=== PATIENT | male | born 1945 | race Caucasian/White ===

== ENCOUNTER 2017-03-09 06:07 | Inpatient (IN) ==
[2017-03-09] MEDS ORDERED: *HR* Propofol 200 MG/20 ML VIAL IVP ONE (06:30)
[2017-03-09] MEDS ORDERED: Ondansetron 4 MG/2 ML VIAL ONE (06:30)
[2017-03-09] MEDS ORDERED: Albuterol 2.5 MG/3 ML NEBULIZER IH ONE ×2 (06:30→11:06)
[2017-03-09] MEDS ORDERED: *HR* Midazolam HCl 2 MG/2 ML VIAL ONE ×2 (06:30→11:11)
[2017-03-09] MEDS ORDERED: *HR* FentaNYL (PF) 100 MCG/2 ML VIAL ONE (06:30)
[2017-03-09] MEDS ORDERED: *HR* Succinylcholine 200 MG/10 ML VIAL IVP ONE (06:30)
[2017-03-09] MEDS ORDERED: Lidocaine -MPF 2% 2 ML VIAL ONE (06:30)
[2017-03-09] MEDS ORDERED: Vancomycin 1,500 MG in D5% in Water 250 ML IVPB ONE ×2 (06:30→06:49)
[2017-03-09] MEDS ORDERED: Ringers Solution, Lactated 1,000 ML IVC SCH (06:30)
[2017-03-09] MEDS ORDERED: Dexamethasone 4 MG/ML VIAL ONE (06:30)
[2017-03-09] MEDS ORDERED: *HR* Remifentanil 1 MG VIAL IVP ONE (06:30)
[2017-03-09] MEDS ORDERED: CeFAZolin Pre 2,000 MG/100 ML 2,000 MG/100 ML BAG IVPB ONE (06:30)
[2017-03-09] MEDS ORDERED: Albuterol 2.5 MG/3 ML NEBULIZER ONE (06:42)
[2017-03-09] MEDS ORDERED: EPHEDrine 50 MG/ML VIAL ONE ×4 (06:43→14:18)
--- NOTE | 2017-03-09 07:10 | Anesthesia Evaluation PreOp ---
Date of Encounter: 03/09/17 Time of Encounter: 07:40 - Past History Planned Operation: right carotid endarterectomy Cardiac History: WI, HTN, Hyperlipidemia, Cardiac Stent (History of WI over 10 years ago. No history of CHF, angina or cardiac surgery. Had coronary stent placed last week after preop cardiac evaluation. Nuclear stress test revealed EF 68%, no ischemia at targeted heart rate, and a medium fixed defect of mid inferior segments noted with normal wall motion.) Pulmonary History: Former smoker (Over 70 pack year smoking history. Has severe emphysema/COPD. On home O2 at 2-3L 24 hours a day. 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 Currently having multiple TIA episodes with visual disturbances.) Other Medical History: Diabetes Type II, GERD (occasional) Anesthesia History: No Prior Anesthetic Complications, Past Anesthesia Alcohol Use: none Drug use: none Medications and Allergies Albuterol Neb [Proventil Neb] 2.5 mg IH Q4HR PRN 02/16/17 [History] Albuterol Sulfate [Albuterol Inhaler] 2 puff IH Q4HR PRN 02/16/17 [History] Aspirin [Lo-Dose Aspirin EC] 81 mg PO DAILY PRN 02/16/17 [History] Budesonide/Formoterol 160/4.5 [Symbicort 160/4.5] 2 puff IH BIDR 02/16/17 [ History] Furosemide [Lasix] 80 mg PO HS 02/16/17 [History] Furosemide [Lasix] 120 mg PO QAM 02/16/17 [History] HYDROcodone/Acet 5/325 mg [[place] 5-325 mg] 1 tab PO Q6H PRN 02/16/17 [History] Isosorbide MONOnitrate (24 HR) [Imdur] 15 mg PO DAILY 02/16/17 [History] Lidocaine 4% CRM (LMX) [Lmx 4] 1 appl TP TID PRN 02/16/17 [History] Lisinopril 2.5 mg PO DAILY 02/16/17 [History] Methocarbamol [Robaxin-750] 750 mg PO TID PRN 02/16/17 [History] Omeprazole [PriLOSEC] 20 mg PO DAILY 02/16/17 [History] Polyethylene Glycol 3350 [MiraLAX Powder Bulk 17.9 Oz] 1 scoop PO DAILY PRN 01/30 [History] Roflumilast [Daliresp] 500 mcg PO DAILY 02/16/17 [History] Tiotropium [Spiriva] 18 mcg IH 0700 02/16/17 [History] glipiZIDE [Glucotrol] 5 mg PO BIDWM 02/16/17 [History] hydrOXYzine pamoate [HydrOXYzine Pamoate] 25 mg PO TID 02/16/17 [History] Potassium Chloride [K-Tab ER] 20 meq PO DAILY #30 tablet.er 02/17/17 [Rx] Ticagrelor [Brilinta] 90 mg PO BID #60 tablet 02/17/17 [Rx] metFORMIN [Glucophage] 500 mg PO 0800 #0 02/17/17 [Rx] Allergies gabapentin [From Neurontin] Allergy (Verified 02/16/17 08:56) Hypotension Cyclobenzaprine [From Flexeril] Adverse Reaction (Verified 02/16/17 14:57) Hypotension - Meds/Allergy Pre-op Review Medications Reviewed: Yes Allergies Reviewed: Yes Beta Blockers on Current Med List: No Anesthesia Results - Labs Laboratory Tests 02/15/17 03/07/17 03/07/17 14:33 16:05 16:05 WBC 10.6 Hgb 12.2 L Hct 35.9 L Plt Count 282 PT 12.6 H INR 1.2 APTT 34.9 Sodium 141 Potassium 4.0 Chloride 100 Carbon Dioxide 31 H BUN 19 Creatinine 1.56 H - Imaging EKG: report reviewed (sinus bridget with RBBB), image reviewed Anesthesia Exam Selected Entries 03/09/17 06:31 Temperature 98.0 F Pulse Rate 68 Respiratory Rate 18 Blood Pressure 114/57 O2 Sat by Pulse Oximetry 98 Weight: 98 kg NPO (# of Hours): over 8 hours - HEENT Pupil (Motor): Pupils equal Mallampati: II Teeth: Missing, Poor dentition (No upper teeth. Lower teeth in poor generalized condition) - MOTOR RUNNER LOC: Oriented - Cardiac Rhythm: Regular Murmur: None - Pulmonary Breath Sounds: bilateral Rales, bilateral Rhonchi (Audible wheezing at rest.) Anesthesia Assess/Plan ASA Score: 4 Modified Omayra Scale for Level of Consciousness: Cooperative, oriented, and tranquil Anesthetic Plan: General Monitoring Plan: Standard Monitors, A-Line Recovery Plan: PACU
[2017-03-09] MEDS ORDERED: Protamine Sulfate 50 MG/5 ML VIAL IVP ONE (07:34)
[2017-03-09] MEDS ORDERED: Lidocaine 1% 20 ML MDV ONE (07:34)
[2017-03-09] MEDS ORDERED: Bupivacaine-MPF 0.25% 10 ML VIAL ONE (07:34)
[2017-03-09] MEDS ORDERED: Heparin 1,000 UNITS/500 mL NS 1,500 ML ONE (07:35)
[2017-03-09] MEDS ORDERED: Vancomycin 1,000 MG VIAL ONE (07:35)
[2017-03-09] MEDS ORDERED: Heparin 1,000 UNITS/500 mL NS 500 ML ONE (07:36)
[2017-03-09] MEDS ORDERED: MethylPREDNISolone Acet(DEPOT) 40 MG/ML VIAL ONE (07:36)
--- NOTE | 2017-03-09 07:49 | History & Physical Report ---
Date of Encounter: 03/09/17 Time of Encounter: 07:25 24 Hour HP Update - Instructions Instructions: If the History and Physical is less than 30 days old and was completed prior to A.M. admission and or procedure and has NOT been updated on calendar day of procedure please complete this update prior to performing procedure. - Update Patient reports changes in Medical Condition: Yes Changes in examination, assessment, or condition: No Changes in Medication: Yes Preop tests/diagnostics Reviewed: Yes Surgery Remains Indicated: Yes Review of Patient reveals the following changes:: Patient had [facility] with coronary stent on 02/16/17. Patient now taking Plavix 75mg daily. I spoke with Dr. Corbett this morning regarding his stent placement. He stated it was okay to proceed with surgery today. Patient has received Plavix this morning. - Pre-Operative Checklist Preoperative Checklist Indicated: Yes Prophylactic Antibiotic Ordered: Yes (vancomycin due to MRSA risk.) Home Medications Include Beta Padma: No Beta Padma Taken Today (Day of Surgery): No Beta Padma Taken Yesterday (Day Prior to Surgery): No Is VTE Prophylaxis Indicated?: Yes
[2017-03-09] MEDS ORDERED: *HR* Morphine 10 MG/ML VIAL ONE ×2 (10:37→14:46)
[2017-03-09] MEDS: *HR* Midazolam HCl 2 MG/2 ML VIAL IVP PRN ×2 (11:05→11:15)
[2017-03-09] MEDS ORDERED: Ondansetron 4 MG/2 ML VIAL IVP ONE (11:06)
[2017-03-09] MEDS: *HR* Morphine 2 MG/ML SYRINGE IVP PRN ×3 (11:10→11:40)
--- NOTE | 2017-03-09 11:11 | Operative Note ---
Date of procedure: 03/09/17 Pre-op diagnosis: 80-99% Right internal carotid artery stenosis Post-op diagnosis: same Procedure: Right carotid endarterectomy with hemashield patch angioplasty. Complications: None Anesthesia: KATHRINA Surgeon: Roe Humphries Estimated blood loss (cc): 100 Specimen: Right neck lymph nodes, right carotid plaque Condition: stable Disposition: PACU Procedure in Detail: Indications: The patient is a 71 year old male with coronary artery disease, chronic kidney disease stage 3, COPD and hypertension who was found to have an 80-99% right internal carotid artery stenosis. A left carotid endarterectomy was recommended to reduce his risk of cerebrovascular accident. Procedure: The patient was identified in the preoperative area. The risks, benefits, and alternatives of the procedure were discussed and all questions were answered. The patient was then taken to the operating room and placed in supine position on the operating table. After induction of general endotracheal anesthesia, the patient was cleaned and draped in normal sterile fashion. A longitudinal incision was made anterior to his right sternocleidomastoid muscle. Hemostasis was obtained via electrocautery. Through a process of blunt , sharp, and electrocautery dissection, the platysma was traversed. [place] large lymph nodes were noted to be present deep to the sternocleidomastoid. The nodes were resected and sent to pathology. The jugular vein was then identified. The facial vein was identified, dissected, clamped, divided, tied off with a 2-0 silk suture ligature. The jugular vein was retracted, exposing the carotid bifurcation. Patient received 3000 units of heparin intravenously at this time. Proximal dissection of the common and external carotid arteries were performed circumferentially. Dissection of the internal carotid was performed circumferentially. Vessels loops were passed around the internal and external carotid and an umbilical tape was passed from the common carotid artery. The patient received additional 2000 units of heparin intravenously. Additional heparin was given throughout the case to maintain adequate anticoagulation. After waiting adequate time for the heparin to circulate, the vessels were occluded and a longitudinal arteriotomy was made into the common carotid artery and extending into the internal carotid beyond the plaque. Vigorous pulsatile retrograde flow was noted from the internal carotid artery upon release of the distal vessel loop. Due to the flow, adequate contralateral circulation was determined and a shunt was not placed. A dental [place] was then used to perform a standard endarterectomy. Proximal and distal endpoints were inspected. No elevated flaps were noted. A Hemashield patch was cut to fit the defect and sutured in place with running 6 -0 Prolene. Prior to completing the closure, each vessel was flushed and then reoccluded. Heparinized saline was infused into the lumen. The patch was completed. Flow was restored in the external carotid artery, followed the common carotid artery, lastly the internal carotid artery was opened. A low resistance arterialized signal was present within the internal carotid artery beyond the patch. Thrombin and Gelfoam were used to aid in hemostasis. Meticulous hemostasis was obtained throughout the wound with electrocautery. Platelet rich and platelet poor plasma were infused into the wounds. The sternocleidomastoid was reapproximated with interrupted 3-0 Vicryl. Platelet rich and platelet poor plasma were infused into the wound. A TLS drain was brought through a separate stab incision and sutured in place with 0 silk suture. The platysma was reapproximated with running 3-0 Vicryl. Local anesthetic was infused in the skin. A 3-0 Monocryl was used to reapproximate the skin. Sterile dressing was applied. The patient was extubated, taken to the recovery room in stable condition.
--- NOTE | 2017-03-09 11:52 | Anesthesia Procedures ---
Date of Encounter: 03/09/17 Time of Encounter: 08:00 Procedures: Anesthesia - Arterial Line Consent obtained: verbal consent Time out performed: Yes Local Anesthetic: Lidocaine 1% Amount of Anesthetic used (mls): 1 Size (Gauge): 22 Technique Used: sterile prep, guide wire technique Post-Procedure: line taped into place Patient tolerated procedure: well Complications: none Site: Radial R Comments: Patient tolerated procedure well. Excellent wave form, pulsatile blood flow.
--- NOTE | 2017-03-09 12:28 | Discharge Summary ---
Date of Encounter: 03/10/17 Time of Encounter: 17:15 - Discharge Diagnosis (1) Carotid stenosis, bilateral Priority: Primary Status: Chronic Comments: The patient is postoperative day #1 after a right carotid endarterectomy. He is alert and oriented. He has ambulated in the hallway and his states that he is at his baseline. He had blurred vision bilaterally this morning. His right was affected greater than his left. Eye exam at this time reveals intact vision, pupillary response and extraoccular movement. He is alert without neurologic deficits. He denies symptoms of CVA, TIA or amaurosis fugax. He will be discharged today. He tammy take percocet for postoperative pain. He will follow-up in clinic in a two weeks for further evaluation. He will continue with daily Aspirin and Plavix. (2) COPD (chronic obstructive pulmonary disease) Priority: Secondary Status: Chronic Qualifiers: COPD type: emphysema Emphysema type: panlobular Qualified Code(s): J43.1 - Panlobular emphysema (3) CKD (chronic kidney disease) stage 3, GFR 30-59 ml/min Priority: Secondary Status: Chronic Comments: The patient received intravenous fluid boluses. He is making good urine. He was encouraged to continue with oral hydration. (4) Essential hypertension Priority: Secondary Status: Chronic (5) Mixed hyperlipidemia Priority: Secondary Status: Chronic (6) CAD (coronary artery disease) Priority: Secondary Status: Chronic Qualifiers: Coronary Disease-Associated Artery/Lesion type: [place] artery [place] vs. transplanted heart: [place] heart Associated angina: without angina Qualified Code(s): I25.10 - Atherosclerotic heart disease of [place] coronary artery without angina pectoris (7) Type 2 diabetes mellitus Priority: Secondary Status: Acute Qualifiers: Diabetes mellitus complication status: with circulatory complication Diabetes mellitus complication detail: with other circulatory complications Diabetes mellitus skilled nursing insulin use: with skilled nursing use Qualified Code(s) : E11.59 - Type 2 diabetes mellitus with other circulatory complications; Z79.4 - senior living (current) use of insulin - Discharge Medications Prescriptions: OxyCODONE/APAP 5/325 [Percocet 5/325 MG] 1 each PO Q4HR PRN #30 tablet PRN Reason: postoperative pain Home Medications: Albuterol Neb [Proventil Neb] 2.5 mg IH Q4HR PRN 02/16/17 [History] Albuterol Sulfate [Albuterol Inhaler] 2 puff IH Q4HR PRN 02/16/17 [History] Aspirin [Lo-Dose Aspirin EC] 81 mg PO DAILY PRN 02/16/17 [History] Budesonide/Formoterol 160/4.5 [Symbicort 160/4.5] 2 puff IH BIDR 02/16/17 [ History] Furosemide [Lasix] 80 mg PO HS 02/16/17 [History] Furosemide [Lasix] 120 mg PO QAM 02/16/17 [History] HYDROcodone/Acet 5/325 mg [[place] 5-325 mg] 1 tab PO Q6H PRN 02/16/17 [History] Isosorbide MONOnitrate (24 HR) [Imdur] 15 mg PO DAILY 02/16/17 [History] Lidocaine 4% CRM (LMX) [Lmx 4] 1 appl TP TID PRN 02/16/17 [History] Lisinopril 2.5 mg PO DAILY 02/16/17 [History] Methocarbamol [Robaxin-750] 750 mg PO TID PRN 02/16/17 [History] Omeprazole [PriLOSEC] 20 mg PO DAILY 02/16/17 [History] Polyethylene Glycol 3350 [MiraLAX Powder Bulk 17.9 Oz] 1 scoop PO DAILY PRN 01/30 [History] Roflumilast [Daliresp] 500 mcg PO DAILY 02/16/17 [History] Tiotropium [Spiriva] 18 mcg IH 0700 02/16/17 [History] glipiZIDE [Glucotrol] 5 mg PO BIDWM 02/16/17 [History] hydrOXYzine pamoate [HydrOXYzine Pamoate] 25 mg PO TID 02/16/17 [History] Potassium Chloride [K-Tab ER] 20 meq PO DAILY #30 tablet.er 02/17/17 [Rx] Ticagrelor [Brilinta] 90 mg PO BID #60 tablet 02/17/17 [Rx] metFORMIN [Glucophage] 500 mg PO 0800 #0 02/17/17 [Rx] OxyCODONE/APAP 5/325 [Percocet 5/325 MG] 1 each PO Q4HR PRN #30 tablet 03/10/17 [Rx] Allergies/Adverse Reactions: Allergies gabapentin [From Neurontin] Allergy (Verified 02/16/17 08:56) Hypotension Cyclobenzaprine [From Flexeril] Adverse Reaction (Verified 02/16/17 14:57) Hypotension Date of admission: 03/09/17 11:49 Primary care physician: TITUS WATKINS Procedure(s) Performed: Right carotid endarterectomy Discharging clinician: Roe Humphries Anticipated date of discharge: 03/10/17 - Patient Status Disposition: Home, Self-Care Condition: Good Functional capacity at discharge: independent ambulation Overall status at discharge: patient is back to baseline - Discharge Instructions Follow Up With: Roe Humphries MD [Partnered Physician] - 04/17/17 3:45 pm () JUNE,PCP [Primary Care Provider] - 03/20/17 10:30 am Additional Instructions: May remove bandage and shower on 03/11/17. Wash wound gently and pat to dry. No driving for [address] Humphries at [phone] with questions or concerns. - Diet and Activity Activity: ambulate only with your walker, increase activity as tolerated Diet: advance to your usual diet - Hospital Course Hospital course: Mr. Boyle is a 71 year old male with a history of CAD, hypertension, chronic kidney disease and COPD. He was admitted on 03/09/17. He underwent a right carotid endarterectomy and tolerated the procedure well. The patient had an episode of blurred vision after a coughing fit. He reported that this had occurred in the past as well. His vision improved. He received intravenous fluid boluses and was able to ambulate in the chen with his walker. He was noted to be at baseline by his . He was discharged in stable condition on postoperative day #1 without complication. - Time Spent with Patient Total time spent providing and/or coordinating discharge services: Exam Vital Signs, Last 4 Hours Temp Pulse Resp BP Pulse Ox 03/09/17 12:00 97.5 F L 67 16 93/50 93 03/09/17 11:50 72 16 110/57 94 03/09/17 11:40 79 16 87/49 92 03/09/17 11:30 97.6 F 86 16 95/48 92 03/09/17 11:20 93 16 91/56 93 05/25/17 11:10 92 16 109/52 97 03/09/17 11:00 97.7 F 97 16 113/70 97 General: Present: Conversant HEENT: Present: Atraumatic, Trachea midline, Pupils equal (round, reactive, extraoccular movements are intact), Other (symmetric face, no tongue deviation) Neck: Present: Other (incision clean, dry and intact without erythema or drainage, no hematoma). Absent: JVD, Tracheal deviation Cardiac: Present: Reg Rate and Rhythm Lungs: Present: Normal Breath Sounds Neuro: Present: Alert and responsive, No focal deficits noted, Motor nerves grossly intact, Sensory nerves grossly intact Abdomen: Present: Soft Vascular: Present: Normal capillary refill. Absent: Cyanosis, Edema Skin: Present: No rashes noted on visualized skin
[2017-03-09] MEDS ORDERED: Albuterol 2.5 MG/3 ML NEBULIZER IH PRN (12:35)
[2017-03-09] MEDS ORDERED: NON-FORMULARY MEDICATION 1 EACH EACH (Roflumilast [Daliresp] 500 MCG) PO SCH (12:35)
[2017-03-09] MEDS ORDERED: 0.9 % Sodium Chloride 1,000 ML IVC SCH (12:35)
[2017-03-09] MEDS ORDERED: Naloxone 0.4 MG/ML INJ IVP PRN (12:35)
[2017-03-09] MEDS ORDERED: Dextrose Gel 15 GM PO PRN ×2 (12:35)
[2017-03-09] MEDS ORDERED: Ondansetron 4 MG/2 ML VIAL IVP PRN (12:35)
[2017-03-09] MEDS ORDERED: Polyethylene Glycol 3350 255 GM POWDER PO PRN (12:35)
[2017-03-09] MEDS ORDERED: *HR* Morphine 2 MG/ML SYRINGE IVP PRN (12:35)
[2017-03-09] MEDS ORDERED: Methocarbamol 750 MG TABLET PO PRN (12:35)
[2017-03-09] MEDS ORDERED: D5% in Water 1,000 ML IVC PRN (12:35)
[2017-03-09] MEDS ORDERED: *HR* Dextrose 50 % in Water (Syg) 50 ML SYRINGE IVP PRN (12:35)
[2017-03-09] MEDS ORDERED: Acetaminophen 325 MG TABLET PO PRN (12:35)
[2017-03-09] MEDS ORDERED: Lidocaine 4% CREAM (LMX) 5 GM TP PRN (12:35)
[2017-03-09] MEDS: Budesonide/Formoterol 160/4.5 MDI IH SCH ×2 (15:17→23:05)
[2017-03-09] MEDS ORDERED: Naloxone 0.4 MG/ML INJ ONE (15:24)
[2017-03-09] MEDS ORDERED: *HR* Heparin 5,000 UNIT/ML VIAL SQ SCH (18:00)
[2017-03-09] MEDS: *HR* Ticagrelor 90 MG TABLET PO SCH ×2 (18:28→20:29)
[2017-03-09] MEDS: Isosorbide MONOnitrate (24 HR) 30 MG TAB.ER.24H PO SCH (18:29)
[2017-03-09] MEDS: hydrOXYzine pamoate 25 MG CAPSULE PO SCH ×3 (18:29→20:30)
[2017-03-09] MEDS: Insulin LISPRO 300 UNITS/3 ML VIAL SQ SCH ×2 (18:29→19:39)
[2017-03-09] MEDS: Furosemide 40 MG TABLET PO SCH (18:29)
[2017-03-09] MEDS: ceFAZolin 2,000 MG in D5% in Water 100 ML IVPB SCH ×2 (18:33→23:15)
[2017-03-09] MEDS: *HR* HYDROcodone/Acet 5/325 mg TABLET PO PRN (19:42)
[2017-03-09] MEDS ORDERED: Insulin LISPRO 300 UNITS/3 ML VIAL SQ SCH (21:00)
[2017-03-09] MEDS ORDERED: Furosemide 40 MG TABLET PO SCH (21:00)
[2017-03-09] MEDS: *HR* OxyCODONE Immed Rel 5 MG TABLET PO PRN (23:51)
[2017-03-10 04:55] LABS: Calcium 8.9 mg/dL (8.6-10.8); Potassium 4.5 mEq/L (3.5-4.5)
[2017-03-10] MEDS: *HR* Heparin 5,000 UNIT/ML VIAL SQ SCH ×2 (05:57→17:29)
[2017-03-10] MEDS: *HR* HYDROcodone/Acet 5/325 mg TABLET PO PRN (06:01)
[2017-03-10] MEDS ORDERED: Tiotropium 18 MCG inhalation IH SCH (07:00)
[2017-03-10] MEDS: hydrOXYzine pamoate 25 MG CAPSULE PO SCH ×2 (07:59→15:47)
[2017-03-10] MEDS: Isosorbide MONOnitrate (24 HR) 30 MG TAB.ER.24H PO SCH (07:59)
[2017-03-10] MEDS: Furosemide 40 MG TABLET PO SCH (07:59)
[2017-03-10] MEDS: Insulin LISPRO 300 UNITS/3 ML VIAL SQ SCH ×3 (08:00→17:29)
[2017-03-10] MEDS: *HR* Ticagrelor 90 MG TABLET PO SCH (08:00)
[2017-03-10] MEDS ORDERED: *HR* Metformin 500 MG TABLET PO SCH (08:00)
[2017-03-10] MEDS: *HR* OxyCODONE Immed Rel 5 MG TABLET PO PRN (08:04)
[2017-03-10] MEDS ORDERED: Aspirin Enteric Coated 81 MG Tablet PO SCH (09:00)
--- NOTE | 2017-03-10 10:11 | Event Note ---
Date of Encounter: 03/10/17 Time of Encounter: 09:50 Called to see patient regarding blurred vision. Exam reveals that pupils are equally round and reactive to light and accomodation. Patients states he no longer has blurry vision. Motor and sensory function is grossly intact without focal neurologic deficits. He states that his vision becomes blurred when he coughs too hard. He states that these symptoms have occurred in the past, prior to his admission. Patient discussed with nurse. Will continue to observe patient at this time. Continue with ASA.
[2017-03-10] MEDS: Budesonide/Formoterol 160/4.5 MDI IH SCH (10:18)
[2017-03-10] MEDS ORDERED: 0.9 % Sodium Chloride 500 ML IVC ONE ×2 (12:20→15:42)
[2017-03-10 15:31] VITALS: BP 96/46
[2017-03-10] MEDS ORDERED: *HR* GlipiZIDE 5 MG TABLET PO SCH (17:00)
== END 2017-03-10 18:45 | disposition home or self-care (01) | DRG 39 ==
LOC: SAMDAY 06:07 → 2NNU 11:49
PROVIDERS: ADMIT Surgery; ATTEND Surgery

== ENCOUNTER 2019-04-04 17:29 | Inpatient (IN) ==
--- NOTE | 2019-04-04 17:37 | Emergency Department Note ---
Disposition Clinical Impression: Stroke Qualifiers: CVA mechanism: unspecified Qualified Code(s): I63.9 - Cerebral infarction, unspecified Disposition: Admitted As Inpatient Condition: Undetermined Time of Disposition: 23:51 Neuro HPI - General Stated Complaint: Weakness Time Seen by Provider: 04/04/19 17:34 - History of Present Illness HPI Narrative: 73-year-old male past medical history of carotid artery stenosis, CAD, COPD, diabetes, chronic kidney disease presenting approximately 6-1/2 hours after the onset of neurological symptoms. Patient states that his symptoms first began last evening when he had chest pain and shortness of breath which required nitroglycerin administration which relieved his symptoms. A shunt states since approximately 11 AM he has had lightheadedness dizziness, difficulties with speaking, numbness of his bilateral face, numbness of his left upper extremity and numbness of his left lower extremity. Patient drove himself to the hospital this morning, rapid response was called from the parking lots. Upon presentation the patient is alert and oriented, NIH stroke scale scapular to 5, stroke alert was called. Onset of Symptoms Date: 04/04/19 Onset of Symptoms Time: 11:00 Location: speech, left face, right face, left arm, right leg History of same: Yes Severity: moderate Quality: numbness Context: sudden onset Associated symptoms: Reports: denies other symptoms Treatments Prior to Arrival: none - Related Data Home Medications: Home Medications Medication Instructions Recorded Confirmed Albuterol Sulfate [Albuterol 2 puff IH Q4HR PRN 02/16/17 04/04/19 Inhaler] Budesonide/Formoterol 160/4.5 2 puff IH BIDR 02/16/17 04/04/19 [Symbicort 160/4.5] Furosemide [Lasix] 80 mg PO QPM 02/16/17 04/04/19 Furosemide [Lasix] 120 mg PO QAM 02/16/17 04/04/19 HYDROcodone/Acet 5/325 mg [[place] 1 tab PO Q6H PRN 02/16/17 04/04/19 5-325 mg] Roflumilast [Daliresp] 500 mcg PO DAILY 02/16/17 04/04/19 Tiotropium [Spiriva] 2 puff IH DAILY 02/16/17 04/04/19 glipiZIDE [Glucotrol] 5 mg PO BIDWM 02/16/17 04/04/19 hydrOXYzine pamoate [HydrOXYzine 25 mg PO TID PRN 02/16/17 04/04/19 Pamoate] Acetylcysteine [Nac] 600 mg PO BID 10/25/17 04/04/19 Gabapentin [Neurontin] 300 mg PO TID 12/06/17 04/04/19 Allopurinol [Zyloprim 100 MG] 100 mg PO DAILY 04/04/19 04/04/19 Aspirin Enteric Coated [Aspirin EC] 325 mg PO DAILY 04/04/19 04/04/19 Atorvastatin [Lipitor] 80 mg PO HS 04/04/19 04/04/19 Memantine [Namenda] 10 mg PO BID 04/04/19 04/04/19 Pyridoxine (B-6) [Vitamin B-6] 50 mg PO DAILY 04/04/19 04/04/19 Tamsulosin HCl [Flomax] 0.4 mg PO HS 04/04/19 04/04/19 Allergies/Adverse Reactions: Allergies Allergy/AdvReac Type Severity Reaction Status Date / Time Cyclobenzaprine AdvReac Hypotension Verified 02/16/17 14:57 [From Flexeril] oxycodone AdvReac Hypotension Verified 04/04/19 23:43 Review of Systems: *See History of Present Illness for more detail Constitutional: Denies: fever, chills Cardiovascular: Denies: chest pain Respiratory: Denies: dyspnea, cough, hemoptysis Gastrointestinal: Denies: abdominal pain, nausea, vomiting, diarrhea, constipation, hematemesis, melena, hematochezia Genitourinary: Denies: hematuria Musculoskeletal: Denies: back pain, neck pain Neurological: Admits to numbness and paresthesias of bilateral face, left upper extremities and right lower extremity. Admits to lightheadedness/dizziness and weakness. Denies: headache Endocrine: Denies: fatigue All systems ED: reviewed and negative except as stated. Review of Systems: As Per HPI Past Medical History - Past Medical History Medical history: Reports: COPD, CVA, diabetes, hyperlipidemia, hypertension, myocardial infarction, other Surgical history: Reports: other Psychiatric history: Reports: anxiety, depression - Social History Smoking Status: Former smoker Smokeless Tobacco Status: No Alcohol use: Reports: none Drug use: Reports: none Physical Exam NIH stroke scale is 5 Constitutional: Mild distress due to neurological symptoms, otherwise [id number], engaged to conversation, speech is slurred, answers questions appropriately Neuro: GCS 15, CN II-XII are grossly intact, reflexes 2/4 in bilateral upper and lower extremities, strength 5/5 in bilateral upper and lower extremities Head: Atraumatic, normocephalic Eyes: Pupils equal, round and reactive to light, external ocular muscles intact, no scleral icterus, no conjunctival injection, no nystagmus. Mouth: Mucous membranes are moist, oropharynx is without edema, erythema, or exudate. No tongue swelling, lip swelling, perioral cyanosis, drooling, or sergio mus. Neck: Trachea midline without deviation. Anterior neck is supple without swelling, no lymphadenopathy or thyromegaly noted. Chest: Symmetric chest wall rise Heart: Cardiac rhythm and rate are regular with S1 and S2 , no S3 or S4 appreciated, no murmurs, rubs, or clicks. Lungs: Lungs are clear to auscultation bilaterally, without accessory muscle use or prolonged expiratory phase. No wheezes or stridor appreciated. Abdomen: Abdomen is flat, soft to palpation, normal bowel sounds, no evidence of bruising, surgical incisions, or abnormal mass. No abdominal bruit auscultated. Non-distended, non-rigid, no organomegaly, no ascites appreciated. No pulsatile mass, no tenderness or guarding to palpation, no rebound Extremities: No pedal edema, joint swelling or erythema. Pulses/motor/sensory intact in all 4 extremities. Psychiatric exam: Patient displays a normal affect and mood for the environment. No overt signs of hallucination. Integumentary: warm, dry, intact, normal color. No rash, cyanosis, diaphoresis, erythema, or pallor - General Limitations: no limitations General appearance: alert, in distress Course Course Narrative: Stroke alert called at this time - Reevaluation(s) Reevaluation #1: Spoke with Dr. Khan from [facility] neurology who recommends CTA of the head and neck at this time. Dr. Khan states that any abnormalities in the CTA she would like to be called for. Otherwise patient may be admitted to this facility for further evaluation and management of altered mental status. Vital Signs Temperature 97.6 F 04/04/19 17:33 Pulse Rate 88 04/04/19 17:33 Respiratory Rate 15 04/04/19 17:33 Blood Pressure 177/95 04/04/19 17:33 O2 Sat by Pulse Oximetry 97 04/04/19 17:33 Temperature 97.6 F 04/04/19 17:33 Pulse Rate 75 04/04/19 22:12 Respiratory Rate 18 04/04/19 23:01 Blood Pressure 145/71 04/04/19 23:01 O2 Sat by Pulse Oximetry 95 04/04/19 20:53 Oxygen Delivery Oxygen Delivery Nasal Cannula Neuro Symptoms/Deficit - [facility] Narrative Medical decision making narrative: Patient laboratory results are significant only for a mildly elevated white count, otherwise laboratory, EKG and imaging results are negative for acute pathology. Patient be admitted to hospitalist medicine service for further evaluation and management of altered mental status and neurological deficit, Patient verbalizes understanding and agreement with this plan. Patient is hemodynamic stable time of admission. - Lab Data Lab results reviewed: Yes I reviewed the patient's lab results. Result diagrams: 04/04/19 17:34 04/04/19 17:34 Lab Results 04/04/19 04/04/19 04/04/19 Range/Units 17:34 17:34 17:34 WBC 13.5 H (4.3-11.1) K/mcL RBC 4.30 (4.19-5.50) M/mcL Hgb 13.4 (12.9-16.9) g/dL Hct 41.5 (37.5-50.1) % MCV 96.5 (83.0-100.0) fL MCH 31.2 (28.0-33.3) pg MCHC 32.3 (31.6-35.5) g/dL RDW 13.4 (11.5-14.5) % Plt Count 346 (140-400) K/mcL MPV 11.3 (9.4-12.4) fL PT 11.5 (9.4-12.1) Seconds INR 1.0 APTT 38.3 H (26.0-36.0) Seconds Sodium 141 (136-145) mEq/L Potassium 3.5 (3.5-5.1) mEq/L Chloride 100 (98-107) mEq/L Carbon Dioxide 30 H (23-29) mEq/L BUN 23 (8-23) mg/dL Creatinine 1.30 (0.70-1.30) mg/dL Est GFR ( Amer) > 60 (> 60) Est GFR (Non-Af Amer) 54 L (> 60) BUN/Creatinine Ratio 18 (6-26) Glucose 162 H (70-105) mg/dL POC Glucose (70-99) mg/dL Calculated Osmolality 299 (280-300) Calcium 10.1 (8.6-10.3) mg/dL Troponin I < 0.03 (< 0.04) ng/mL Urine Color (Yellow) Urine Clarity (Clear) Urine pH (5.0-8.0) pH Units Ur Specific [place] (1.010-1.025) Urine Protein (Neg-Trace) mg/dL Urine Glucose (UA) (Normal) mg/dL Urine Ketones (Negative) mg/dL Urine Blood (Negative) Urine Nitrite (Negative) Urine Bilirubin (Negative) Urine Urobilinogen (Normal) mg/dL Ur Leukocyte Esterase (Negative) Ur Culture Indicated? (NO) 04/04/19 04/04/19 Range/Units 17:40 18:53 WBC (4.3-11.1) K/mcL RBC (4.19-5.50) M/mcL Hgb (12.9-16.9) g/dL Hct (37.5-50.1) % MCV (83.0-100.0) fL MCH (28.0-33.3) pg MCHC (31.6-35.5) g/dL RDW (11.5-14.5) % Plt Count (140-400) K/mcL MPV (9.4-12.4) fL PT (9.4-12.1) Seconds INR APTT (26.0-36.0) Seconds Sodium (136-145) mEq/L Potassium (3.5-5.1) mEq/L Chloride (98-107) mEq/L Carbon Dioxide (23-29) mEq/L BUN (8-23) mg/dL Creatinine (0.70-1.30) mg/dL Est GFR ( Amer) (> 60) Est GFR (Non-Af Amer) (> 60) BUN/Creatinine Ratio (6-26) Glucose (70-105) mg/dL POC Glucose 149 H (70-99) mg/dL Calculated Osmolality (280-300) Calcium (8.6-10.3) mg/dL Troponin I (< 0.04) ng/mL Urine Color Yellow (Yellow) Urine Clarity Clear (Clear) Urine pH 7.0 (5.0-8.0) pH Units Ur Specific [place] 1.009 L (1.010-1.025) Urine Protein Negative (Neg-Trace) mg/dL Urine Glucose (UA) Normal (Normal) mg/dL Urine Ketones Negative (Negative) mg/dL Urine Blood Negative (Negative) Urine Nitrite Negative (Negative) Urine Bilirubin Negative (Negative) Urine Urobilinogen Normal (Normal) mg/dL Ur Leukocyte Esterase Negative (Negative) Ur Culture Indicated? NO (NO) - Radiology Data Radiology results reviewed: Yes I reviewed the patient's radiology results. Chest X-Ray 04/04/19 17:35 IMPRESSION: No acute cardiopulmonary disease. D/ / Roe Le MD / Roe Le MD Interpreting Provider: Roe Le MD Head CT 04/04/19 17:35 IMPRESSION: No acute intracranial abnormality. Chronic lacune infarcts identified involving left basal ganglia. Questionable perisylvian dot sign on the left. Critical results were called by Dr. Rex Jc DO on 04/04/2019 at 17:58. D/ / Rex Jasmine / Rex Jasmine Interpreting Provider: Rex Jasmine Chest X-Ray 04/04/19 17:35 IMPRESSION: No acute cardiopulmonary disease. D/ / Roe Le MD / Roe Le MD Interpreting Provider: Roe Le MD Head CT 04/04/19 17:35 IMPRESSION: No acute intracranial abnormality. Chronic lacune infarcts identified involving left basal ganglia. Questionable perisylvian dot sign on the left. Critical results were called by Dr. Rex Jc DO on 04/04/2019 at 17:58. D/ / Rex Jasmine / Rex Jasmine Interpreting Provider: Rex Jasmine Head CTA 04/04/19 17:48 IMPRESSION: No focal significant arterial narrowing is noted in the neck No focal significant arterial narrowing is noted in the head. No aneurysm D/ / Roe Singh / Roe Singh Interpreting Provider: Roe Singh Neck CTA 04/04/19 17:48 IMPRESSION: No focal significant arterial narrowing is noted in the neck No focal significant arterial narrowing is noted in the head. No aneurysm D/ / Roe Singh / Roe Singh Interpreting Provider: Roe Singh - EKG Data EKG attestation: Yes I reviewed and interpreted this EKG. EKG results narrative: Patient's EKG shows sinus rhythm with a right bundle branch block, heart rate is 84 bpm, NH interval of 190 ms, Q's duration of 148 ms, QT/QT interval of 431/[address] There are ST segment depressions are noted in lead aVF which appear isolated to this lead with no reciprocal ST segment elevations, there are no pathologic Q waves, abnormal T-wave inversions are noted in lead V2 which appear to be isolated this lead consistent with prior EKG. This EKG performed today is generally consistent with prior EKG that was performed on 02/18/2019. NIH Stroke Scale - Level of Consciousness LOC: Alert - LOC Questions LOC Questions: Answers both correctly - LOC Commands LOC Commands: Performs both correctly - Best Gaze Best Gaze: Partial gaze palsy - Visual Visual: Partial hemianopia - Facial Palsy Facial Palsy: Normal - Motor Arms Motor Arm-Left: No drift for 10 seconds Motor Arm-Right: No drift for 10 seconds - Motor Legs Motor Leg-Left: No drift for 5 seconds Motor Leg-Right: No drift for 5 seconds - Limb Ataxia Limb Ataxia: Present in ONE limb - Sensory Sensory: Mild to moderate loss, "not as sharp" - Best Language Best Language: No aphasia - Dysarthria Dysarthria: Mild, slurs some words - Extinction and Inattention Extinction and Inattention: Normal - NIHSS Total Score NIHSS Total Score: 5 TPA Checklist - LKW: 3-4.5 hrs Add. Warnings/Precautions Patient/family understanding: The patient/family members have been counseled and understood the risk, benefit, and alternatives of treatment.
--- NOTE | 2019-04-04 17:45 | Emergency Department Note ---
Disposition Clinical Impression: Stroke Qualifiers: CVA mechanism: unspecified Qualified Code(s): I63.9 - Cerebral infarction, unspecified Disposition: Admitted As Inpatient Condition: Undetermined [facility]Primary [facility] Provider[facility] - Time of Disposition: 22:00 General Adult HPI - General Stated complaint: Weakness Time Seen by Provider: 04/04/19 17:34 - History of Present Illness Pain Scale: 0 - Related Data Home Medications Medication Instructions Recorded Confirmed Albuterol Sulfate [Albuterol 2 puff IH Q4HR PRN 02/16/17 04/04/19 Inhaler] Budesonide/Formoterol 160/4.5 2 puff IH BIDR 02/16/17 04/04/19 [Symbicort 160/4.5] Furosemide [Lasix] 80 mg PO QPM 02/16/17 04/04/19 Furosemide [Lasix] 120 mg PO QAM 02/16/17 04/04/19 HYDROcodone/Acet 5/325 mg [[place] 1 tab PO Q6H PRN 02/16/17 04/04/19 5-325 mg] Roflumilast [Daliresp] 500 mcg PO DAILY 02/16/17 04/04/19 Tiotropium [Spiriva] 2 puff IH DAILY 02/16/17 04/04/19 glipiZIDE [Glucotrol] 5 mg PO BIDWM 02/16/17 04/04/19 hydrOXYzine pamoate [HydrOXYzine 25 mg PO TID PRN 02/16/17 04/04/19 Pamoate] Acetylcysteine [Nac] 600 mg PO BID 10/25/17 04/04/19 Gabapentin [Neurontin] 300 mg PO TID 12/06/17 04/04/19 Allopurinol [Zyloprim 100 MG] 100 mg PO DAILY 04/04/19 04/04/19 Aspirin Enteric Coated [Aspirin EC] 325 mg PO DAILY 04/04/19 04/04/19 Atorvastatin [Lipitor] 80 mg PO HS 04/04/19 04/04/19 Cyclobenzaprine [Flexeril] 10 mg PO TID PRN 04/04/19 04/04/19 Memantine [Namenda] 10 mg PO BID 04/04/19 04/04/19 Pyridoxine (B-6) [Vitamin B-6] 50 mg PO DAILY 04/04/19 04/04/19 Tamsulosin HCl [Flomax] 0.4 mg PO HS 04/04/19 04/04/19 Venlafaxine XR (24 HR) [Effexor XR] 37.5 mg PO DAILY 04/04/19 04/04/19 metFORMIN [Glucophage] 500 mg PO DAILY@1700 04/04/19 04/04/19 Allergies Allergy/AdvReac Type Severity Reaction Status Date / Time gabapentin [From Neurontin] Allergy Hypotension Verified 02/16/17 08:56 Cyclobenzaprine AdvReac Hypotension Verified 02/16/17 14:57 [From Flexeril] Past Medical History - Past Medical History Medical history: Reports: COPD, CVA, diabetes, hyperlipidemia, hypertension, m yocardial infarction, other Surgical history: Reports: other Psychiatric history: Reports: anxiety, depression - Social History Smoking Status: Former smoker Smokeless Tobacco Status: No Alcohol use: Reports: none Drug use: Reports: none Physical Exam - General General appearance: alert, in no apparent distress Course Vital Signs Temperature 97.6 F 04/04/19 17:33 Pulse Rate 88 04/04/19 17:33 Respiratory Rate 15 04/04/19 17:33 Blood Pressure 177/95 04/04/19 17:33 O2 Sat by Pulse Oximetry 97 04/04/19 17:33 Temperature 97.6 F 04/04/19 17:33 Pulse Rate 73 04/04/19 20:53 Respiratory Rate 16 04/04/19 20:53 Blood Pressure 127/74 04/04/19 20:53 O2 Sat by Pulse Oximetry 95 04/04/19 20:53 Oxygen Delivery Oxygen Delivery Room Air Medical Decision Making - Lab Data Result diagrams: 04/04/19 17:34 04/04/19 17:34 Lab Results 04/04/19 04/04/19 04/04/19 Range/Units 17:34 17:34 17:34 WBC 13.5 H (4.3-11.1) K/mcL RBC 4.30 (4.19-5.50) M/mcL Hgb 13.4 (12.9-16.9) g/dL Hct 41.5 (37.5-50.1) % MCV 96.5 (83.0-100.0) fL MCH 31.2 (28.0-33.3) pg MCHC 32.3 (31.6-35.5) g/dL RDW 13.4 (11.5-14.5) % Plt Count 346 (140-400) K/mcL MPV 11.3 (9.4-12.4) fL PT 11.5 (9.4-12.1) Seconds INR 1.0 APTT 38.3 H (26.0-36.0) Seconds Sodium 141 (136-145) mEq/L Potassium 3.5 (3.5-5.1) mEq/L Chloride 100 (98-107) mEq/L Carbon Dioxide 30 H (23-29) mEq/L BUN 23 (8-23) mg/dL Creatinine 1.30 (0.70-1.30) mg/dL Est GFR ( Amer) > 60 (> 60) Est GFR (Non-Af Amer) 54 L (> 60) BUN/Creatinine Ratio 18 (6-26) Glucose 162 H (70-105) mg/dL POC Glucose (70-99) mg/dL Calculated Osmolality 299 (280-300) Calcium 10.1 (8.6-10.3) mg/dL Troponin I < 0.03 (< 0.04) ng/mL Urine Color (Yellow) Urine Clarity (Clear) Urine pH (5.0-8.0) pH Units Ur Specific [place] (1.010-1.025) Urine Protein (Neg-Trace) mg/dL Urine Glucose (UA) (Normal) mg/dL Urine Ketones (Negative) mg/dL Urine Blood (Negative) Urine Nitrite (Negative) Urine Bilirubin (Negative) Urine Urobilinogen (Normal) mg/dL Ur Leukocyte Esterase (Negative) Ur Culture Indicated? (NO) 04/04/19 04/04/19 Range/Units 17:40 18:53 WBC (4.3-11.1) K/mcL RBC (4.19-5.50) M/mcL Hgb (12.9-16.9) g/dL Hct (37.5-50.1) % MCV (83.0-100.0) fL MCH (28.0-33.3) pg MCHC (31.6-35.5) g/dL RDW (11.5-14.5) % Plt Count (140-400) K/mcL MPV (9.4-12.4) fL PT (9.4-12.1) Seconds INR APTT (26.0-36.0) Seconds Sodium (136-145) mEq/L Potassium (3.5-5.1) mEq/L Chloride (98-107) mEq/L Carbon Dioxide (23-29) mEq/L BUN (8-23) mg/dL Creatinine (0.70-1.30) mg/dL Est GFR ( Amer) (> 60) Est GFR (Non-Af Amer) (> 60) BUN/Creatinine Ratio (6-26) Glucose (70-105) mg/dL POC Glucose 149 H (70-99) mg/dL Calculated Osmolality (280-300) Calcium (8.6-10.3) mg/dL Troponin I (< 0.04) ng/mL Urine Color Yellow (Yellow) Urine Clarity Clear (Clear) Urine pH 7.0 (5.0-8.0) pH Units Ur Specific [place] 1.009 L (1.010-1.025) Urine Protein Negative (Neg-Trace) mg/dL Urine Glucose (UA) Normal (Normal) mg/dL Urine Ketones Negative (Negative) mg/dL Urine Blood Negative (Negative) Urine Nitrite Negative (Negative) Urine Bilirubin Negative (Negative) Urine Urobilinogen Normal (Normal) mg/dL Ur Leukocyte Esterase Negative (Negative) Ur Culture Indicated? NO (NO) Attestation Statement - Attestation Attestation: I examined this patient and my medical decision-making was reviewed with the Resident Physician. I agree with the documented findings, disposition and treatment plan as described except to the extent set forth below. Patient to the ED with a chief complaint of dizziness and slurred speech. Patient laid down around 11:[address] at 4 PM. Drove himself to the hospital. Patient is 3 weeks status post thrombectomy at [facility]. On exam he is awake and alert. Speech is slurred but he is making sense. Sensory d iscrepancy in the face. Ataxia in the right arm. A partial hemianopsia on the right. Plan. Stroke alert was called. Patient is outside TPA window. We did talk with tele-neurology at [facility]. CTA pending at this time. If no large vessel occlusion patient will be admitted here for further stroke workup. CTAs reviewed. Patient is not a TPA candidate secondary to his presentation outside TPA window. Patient also recently had a stroke. Patient is admitted to the hospitalist for further monitoring and workup. Chest X-Ray 04/04/19 17:35 IMPRESSION: No acute cardiopulmonary disease. D/ / Roe Le MD / Roe Le MD Interpreting Provider: Roe Le MD Head CT 04/04/19 17:35 IMPRESSION: No acute intracranial abnormality. Chronic lacune infarcts identified involving left basal ganglia. Questionable perisylvian dot sign on the left. Critical results were called by Dr. Rex Jasmine to Caty Jc DO on 04/04/2019 at 17:58. D/ / Rex Jasmine / Rex Jasmine Interpreting Provider: Rex Jasmine Head CTA 04/04/19 17:48 IMPRESSION: No focal significant arterial narrowing is noted in the neck No focal significant arterial narrowing is noted in the head. No aneurysm D/ / Roe Singh / Roe Singh Interpreting Provider: Roe Singh Neck CTA 04/04/19 17:48
[2019-04-04 17:48] LABS: Hematocrit 41.5 % (37.5-50.1); Hemoglobin 13.4 g/dL (12.9-16.9); Mean Corpuscular HGB Conc 32.3 g/dL (31.6-35.5); Mean Corpuscular Hemoglobin 31.2 pg (28.0-33.3); Mean Corpuscular Volume 96.5 fL (83.0-100.0); Mean Platelet Volume 11.3 fL (9.4-12.4); Platelet Count 346 K/mcL (140-400); Red Cell Distribution Width 13.4 % (11.5-14.5); White Blood Count 13.5 K/mcL (4.3-11.1)
[2019-04-04] MEDS ORDERED: Isovue-370 500 ML BOTTLE IVP ONE (17:48)
[2019-04-04 17:54] LABS: Prothrombin Time 11.5 Seconds (9.4-12.1)
[2019-04-04 17:57] LABS: Activated Partial Thrombo Time 38.3 Seconds (26.0-36.0)
[2019-04-04 18:06] LABS: BUN/Creatinine Ratio 18 (6-26); Blood Urea Nitrogen 23 mg/dL (8-23); Calcium 10.1 mg/dL (8.6-10.3); Carbon Dioxide 30 mEq/L (23-29); Chloride 100 mEq/L (98-107); Glucose 162 mg/dL (70-105); Osmolality,Calculated 299 (280-300); Potassium 3.5 mEq/L (3.5-5.1); Sodium 141 mEq/L (136-145); eGFR For African Americans > 60 (> 60); eGFR For Non-African Americans 54 (> 60)
[2019-04-04 18:07] LABS: Troponin I < 0.03 ng/mL (< 0.04)
[2019-04-04 19:01] LABS: Bilirubin,Urine Negative (Negative); Blood,Urine Negative (Negative); Clarity,Urine Clear (Clear); Color,Urine Yellow (Yellow); Glucose,Urine (UA) Normal (Normal); Ketones,Urine Negative (Negative); Leukocyte Esterase,Urine Negative (Negative); Nitrite,Urine Negative (Negative); Protein,Urine Negative (Neg-Trace); Specific Gravity,Urine 1.009 (1.010-1.025); Urobilinogen,Urine Normal (Normal)
[2019-04-04] MEDS ORDERED: 0.9 % Sodium Chloride 1,000 ML IVC SCH (23:00)
--- NOTE | 2019-04-04 23:13 | Internal Med History&Physical ---
Date of Encounter: 04/04/19 Time of Encounter: 23:03 Internal Medicine - H&P: HPI Chief complaint: Stroke like Sx History of present illness: Mr. Boyle is a 73 year old male with a past medical history of coronary artery disease status post PCI, COPD oxygen dependent, DEMETRIO on CPAP, peripheral neuropathy, GERD, hypertension, type 2 diabetes, chronic leukocytosis, and ca rotid artery stenosis status post thrombectomy 3 weeks prior at [facility] who presented to the ED after onset of strokelike symptoms consisting of dizziness and slurred speech. Per report, symptoms began last night with onset of chest pain radiating to his back and shortness of breath necessitating taking his nitroglycerin. Around 11 AM this morning patient noted feeling dizzy and lightheaded particularly when arising and was having difficulty speaking associated with numbness of his face bilaterally and the left side of his upper and lower extremity. Patient subsequently drove himself to the hospital this morning making it to the parking lot at which time a rapid response was called as patient was feeling too weak to get out of the car. Initial NIH stroke scale was 5. Stroke alert was called. CTA was subsequently ordered which showed no evidence of vessel occlusion. Per [facility] neurology, recommended admission with further evaluation. On arrival patient was noted to be mildly hypertensive with a blood pressure 177/95. Heart rate in 80s. Patient was afebrile laboratory workup was notable for a mild cytosis of 13.5 which appears to be chronic. Chemistry notable only for a mild metabolic alkalosis which also appears to be chronic and at baseline likely in the setting of COPD. EKG showed sinus rhythm with a right bundle branch block pattern and slight depressed ST segments in V2 and aVF. Initial troponin was negative. CTA of the head and neck showed no acute intracranial abnormality. There are chronic lacunar infarcts involving the left basal ganglia. There were no focal significant arterial narrowing noted in the head or the neck. On my assessment, patient reports that his symptoms have resolved. He still reporting some level of slightly increased slurred speech from his baseline. Patient denies any recent illness. He did state that he recently increased his dose of gabapentin from 100-300 mg. Past Med Surg Social Fam HX - Past Medical History Medical history: COPD, CVA, diabetes, hyperlipidemia, hypertension, myocardial infarction, other Additional medical history: SEVER OBSTRUCTIVE SLEEP APNEA Psychiatric history: anxiety, depression - Past Surgical History Surgical History: other Additional surgical history: SHOULDER REPLACEMENT RIGHT X 2 , BACK SURGERY 1991 - Social History Smoking Status: Former smoker Smokeless Tobacco Status: No Alcohol use: none Drug use: none Internal Medicine - H&P: Meds Albuterol Sulfate [Albuterol Inhaler] 2 puff IH Q4HR PRN 02/16/17 [History] Budesonide/Formoterol 160/4.5 [Symbicort 160/4.5] 2 puff IH BIDR 02/16/17 [History] Furosemide [Lasix] 80 mg PO QPM 02/16/17 [History] Furosemide [Lasix] 120 mg PO QAM 02/16/17 [History] HYDROcodone/Acet 5/325 mg [[place] 5-325 mg] 1 tab PO Q6H PRN 02/16/17 [History] Roflumilast [Daliresp] 500 mcg PO DAILY 02/16/17 [History] Tiotropium [Spiriva] 2 puff IH DAILY 02/16/17 [History] glipiZIDE [Glucotrol] 5 mg PO BIDWM 02/16/17 [History] hydrOXYzine pamoate [HydrOXYzine Pamoate] 25 mg PO TID PRN 02/16/17 [History] Acetylcysteine [Nac] 600 mg PO BID 10/25/17 [History] Gabapentin [Neurontin] 300 mg PO TID 12/06/17 [History] Allopurinol [Zyloprim 100 MG] 100 mg PO DAILY 04/04/19 [History] Aspirin Enteric Coated [Aspirin EC] 325 mg PO DAILY 04/04/19 [History] Atorvastatin [Lipitor] 80 mg PO HS 04/04/19 [History] Memantine [Namenda] 10 mg PO BID 04/04/19 [History] Pyridoxine (B-6) [Vitamin B-6] 50 mg PO DAILY 04/04/19 [History] Tamsulosin HCl [Flomax] 0.4 mg PO HS 04/04/19 [History] Allergy/AdvReac Type Severity Reaction Status Date / Time Cyclobenzaprine AdvReac Hypotension Verified 02/16/17 14:57 [From Flexeril] oxycodone AdvReac Hypotension Verified 04/04/19 23:43 All Systems PM: A 10-system review of systems was performed and is negative for pertinent findings except as documented above in the HPI. - Constitutional Constitutional: no chills, no fever(s), no night sweats - EENT Eyes: no change in vision, no discharge, no pain, no photophobia Ears: no ear discharge, no ear pain, no tinnitus Nose, mouth and throat: no dysphagia, no nasal discharge, no neck pain, no sore throat - Cardiovascular Cardiovascular ROS IM: no chest pain, no diaphoresis, no dyspnea, no lightheadedness, no palpitations, no syncope - Respiratory Respiratory: no cough, no dyspnea, no wheezing, no excessive phlegm production - Gastrointestinal Gastrointestinal: no abdominal pain, no diarrhea, no hematemesis, no hematochez ia, no melena, no nausea, no vomiting - Musculoskeletal Musculoskeletal ROS IM: no numbness, no tingling - Integumentary Integumentary IM: no rash, no unusual bruising - Neurological Neurological ROS: no confusion, no convulsions, no focal weakness, no numbness, no tingling, no tremor(s) - Hematologic/Lymphatic Hematologic/Lymphatic: no easy bruising - Constitutional Vitals: Temp Pulse Resp BP Pulse Ox 97.6 F 75 16 153/86 95 04/04/19 17:33 04/04/19 22:12 04/04/19 22:12 04/04/19 22:12 04/04/19 20:53 Exam: General: Alert and oriented 3 sitting up in bed in no acute distress Skin:Normal color, no rash, no lesions. HEENT:EOM, pupils equal, round and reactive. Cardiovascular:Normal S1 & S2, no rubs, murmurs or gallops. No JVD. Pulse regular. Lungs:Normal breath sounds, no wheezes or crackles. Abdomen:Soft, non-tender, no rigidity. Extremities:No deformity, no edema or tenderness, no joint swelling or clubbing. Neurological:Normal cognition; speech is slightly garbled. Cranial nerves II through XII intact. Sensation intact. No evidence of pronator drift. Muscle strength 4 out of 5 in the right upper extremity 5 out of 5 in the left; 5 out of 5 in the lower extremities bilaterally Pulses:Carotid and radial pulses normal +2. Rest of the physical exam is non contributory Internal Med - H&P Results - Labs CBC & Chem 7: 04/05/19 02:13 04/05/19 02:13 Labs: Short CBC 04/04/19 Range/Units 17:34 WBC 13.5 H (4.3-11.1) K/mcL Hgb 13.4 (12.9-16.9) g/dL Hct 41.5 (37.5-50.1) % Plt Count 346 (140-400) K/mcL BMP 04/04/19 17:34 Sodium 141 Potassium 3.5 Chloride 100 Carbon Dioxide 30 H BUN 23 Creatinine 1.30 Glucose 162 H Calcium 10.1 Cardiac Enzymes 04/04/19 Range/Units 17:34 Troponin I < 0.03 (< 0.04) ng/mL Urine 04/04/19 Range/Units 18:53 Urine Color Yellow (Yellow) Urine Clarity Clear (Clear) Urine pH 7.0 (5.0-8.0) pH Units Ur Specific [place] 1.009 L (1.010-1.025) Urine Protein Negative (Neg-Trace) mg/dL Urine Glucose (UA) Normal (Normal) mg/dL - Impressions ITS Impressions Chest X-Ray 04/04/19 17:35 IMPRESSION: No acute cardiopulmonary disease. D/ / Roe Le MD / Roe Le MD Interpreting Provider: Roe Le MD Head CT 04/04/19 17:35 IMPRESSION: No acute intracranial abnormality. Chronic lacune infarcts identified involving left basal ganglia. Questionable perisylvian dot sign on the left. Critical results were called by Dr. Rex Jasmine to Caty Jc DO on 04/04/2019 at 17:58. D/ / Rex Jasmine / Rex Jasmine Interpreting Provider: Rex Jasmine Head CTA 04/04/19 17:48 IMPRESSION: No focal significant arterial narrowing is noted in the neck No focal significant arterial narrowing is noted in the head. No aneurysm D/ / Roe Singh / Roe Singh Interpreting Provider: Roe Singh Neck CTA 04/04/19 17:48 IMPRESSION: No focal significant arterial narrowing is noted in the neck No focal significant arterial narrowing is noted in the head. No aneurysm D/ / Roe Singh / Roe Singh Interpreting Provider: Roe Singh - Assessment and Plan (1) Stroke-like symptoms Current Visit: Yes Status: Acute Assessment and plan: Patient presenting with strokelike symptoms consisting of bilateral facial numbness and right upper and lower extremity numbness. Patient also stating increased slurred speech from his baseline. Patient had recent CVA status post TPA and left carotid thrombectomy performed up at [facility]. Patient's symptoms appear to have resolved for the most part as he still reporting some slurred speech from his baseline. Patient did increase his gabapentin dose recently from 100-300 mg prior to symptom onset though less likely to be contributing to current presentation. Concern for possible TIA. -Neurochecks -Telemetry -We will obtain an echocardiogram given symptoms concomitant reports of chest pain shortness of breath one day prior -We will obtain MRI without contrast in the morning -Neurology consult (2) Type 2 diabetes mellitus Current Visit: No Status: Acute Assessment and plan: Blood glucose checks with sliding scale insulin. Qualifiers: Diabetes mellitus salvage determiner insulin use: with [facility] use Diabetes mellitus complication status: with circulatory complication Diabetes mellitus complication detail: with other circulatory complications Qualified Code(s): E11.59 - Type 2 diabetes mellitus with other circulatory complications; Z79.4 - retirement (current) use of insulin (3) CAD (coronary artery disease) Current Visit: No Status: Chronic Assessment and plan: History of coronary artery disease status post [place] and PCI with drug-eluting stent to mid RCA. Patient reporting chest pain with radiation to his back that resolved with nitroglycerin one day prior; symptoms associated with dizziness and lightheadedness. Review of EKG shows slight ST depressions in lead 2 and aVF. Initial troponin negative. Patient reporting having a recent stress test last year at the [facility] which he states was negative. No active chest pain at this time. -Telemetry -We will trend troponin -We will obtain echocardiogram -Resume aspirin and statin. Patient does not appear to be on a beta analilia or CASSIDY/ARB Qualifiers: Coronary Disease-Associated Artery/Lesion type: [place] artery [place] vs. transplanted heart: [place] heart Associated angina: with other forms of angina Qualified Code(s): I25.118 - Atherosclerotic heart disease of [place] coronary artery with other forms of angina pectoris (4) CKD (chronic kidney disease) stage 3, GFR 30-59 ml/min Current Visit: No Status: Chronic Assessment and plan: History of chronic kidney disease. Creatinine 1.3 which appears to be at patient's baseline. -Continue to monitor after CT with contrast (5) COPD (chronic obstructive pulmonary disease) Current Visit: No Status: Chronic Assessment and plan: Patient has a history of COPD with previous smoking history. Reports he quit 25 years ago. Currently on oxygen at baseline 2-3 L. Lung sounds diminished but no evidence of wheezing. -Continue home inhalers. Qualifiers: COPD type: emphysema Emphysema type: panlobular Qualified Code(s): J43.1 - Panlobular emphysema (6) DVT prophylaxis Current Visit: Yes Status: Acute Assessment and plan: Subcutaneous heparin - Time Spent With Patient Total time spent is greater than 50% in coordination of care (as documented) at patient's floor/unit and/or counseling patient:
[2019-04-05] MEDS ORDERED: D5% in Water 1,000 ML IVC PRN (00:45)
[2019-04-05] MEDS: *HR* Heparin 5,000 UNIT/ML VIAL SQ SCH ×4 (00:45→21:08)
[2019-04-05] MEDS: Aspirin Enteric Coated 325 MG Tablet PO SCH ×2 (00:45→10:17)
[2019-04-05] MEDS ORDERED: Dextrose Gel 15 GM/37.5 ML TUBE PO PRN ×2 (00:45)
[2019-04-05] MEDS ORDERED: *HR* Dextrose 50 % in Water (Syg) 50 ML SYRINGE IVP PRN (00:45)
[2019-04-05] MEDS ORDERED: hydrOXYzine pamoate 25 MG CAPSULE PO PRN (00:47)
[2019-04-05] MEDS: Insulin LISPRO 300 UNITS/3 ML VIAL SQ SCH ×4 (01:33→17:44)
[2019-04-05] MEDS: Insulin DETEMIR 100 UNIT/ML X5UNITS SQ SCH ×2 (02:24→21:12)
[2019-04-05 02:34] LABS: Hematocrit 38.9 % (37.5-50.1); Hemoglobin 12.5 g/dL (12.9-16.9); Mean Corpuscular HGB Conc 32.1 g/dL (31.6-35.5); Mean Corpuscular Hemoglobin 31.2 pg (28.0-33.3); Mean Platelet Volume 11.6 fL (9.4-12.4); Platelet Count 335 K/mcL (140-400); Red Blood Count 4.01 M/mcL (4.19-5.50); Red Cell Distribution Width 13.5 % (11.5-14.5); White Blood Count 15.3 K/mcL (4.3-11.1)
[2019-04-05 02:44] LABS: INR 1.1; Prothrombin Time 12.2 Seconds (9.4-12.1)
[2019-04-05 02:48] LABS: Albumin/Globulin Ratio 1.2 (1.1-2.2); Bilirubin,Total 0.4 mg/dL (0.3-1.0); Calcium 9.5 mg/dL (8.6-10.3); Chol/HDL Ratio 5.2 (0-4.9); Globulin 3.4 g/dL (2.4-3.5); Potassium 3.6 mEq/L (3.5-5.1); Total Protein 7.4 g/dL (6.4-8.9)
[2019-04-05] MEDS ORDERED: Perflutren Lipid Microsphere 1.3 ML in 0.9 % Sodium Chloride 8.7 ML IVP ONE (07:49)
[2019-04-05] MEDS ORDERED: Perflutren Lipid Microsphere 2 ML VIAL ONE (08:03)
[2019-04-05 08:46] LABS: Estimated Average Glucose 183 mg/dl
--- NOTE | 2019-04-05 09:23 | Internal Med Progress Note ---
Hospitalist Progress Note - Encounter Date of Encounter: 04/05/19 Time of Encounter: 09:20 - Subjective Interval History: Pt states he's feeling better this AM, noticing fewer symptoms. Speech at baseline he says, and no longer dizzy getting up. No N/V/D. - Exam Vitals: Temp Pulse Resp BP Pulse Ox 97.6 F 64 16 119/58 100 04/05/19 07:11 04/05/19 07:11 04/05/19 07:11 04/05/19 07:11 04/05/19 07:11 Exam: General: Alert and oriented 3 sitting in bedside chair Cardiovascular:Normal S1 & S2, pulse regular. Lungs:Normal breath sounds, no wheezes or crackles. Abdomen:Soft, non-tender Extremities:No deformity, no edema Neurological:Normal cognition; speech is slightly garbled. Cranial nerves II through XII intact. Sensation intact. Muscle strength 4 out of 5 in RUE. Able to stand unassisted with only minor difficulty Pulses:Carotid and radial pulses normal +2. - Summary of Assessment and Plan Summary of Assessment and Plan: Moses Boyle is a 73 M w hx CVA, CAD, HTN, DM2 c/b neuropathy, COPD on 3L, DEMETRIO on CPAP, CKD3a, obesity, who p/w dizziness, slurred speech, and R-sided paresthesias, concerning for TIA/CVA TIA/CVA: p/w b/l R-sided paresthesias, slurred speech. Pt had recent CVA s/p TPA followed by L carotid thrombectomy at [facility]. CTA head/neck unremarkable - MRI head - Tele - Labs: lipids, A1c - ASA 81, Lipitor 80 - Neuro consult, pending rec's - PT/OT/Speech consults COPD and chronic hypoxic resp failure: home 3L, home inhalers CAD/HLD: ASA, statin HTN: home meds DM2: uncontrolled, w peripheral neuropathy and hyperglycemia, basal insulin + SSI DEMETRIO: home cpap qhs CKD3a: noted, renally dose and monitor Obesity: BMI 33 PPx: lovenox FEN: cardiac ADA, no MIVF Lines: PIV Consults: Neuro Code: Full Dispo: obs for CVA eval, anticipate 1-2 days, PT/OT rec [facility] Internal Medicine: Result - Labs CBC & Chem 7: 04/05/19 02:13 04/05/19 02:13 Labs: Short CBC 04/04/19 04/05/19 Range/Units 17:34 02:13 WBC 13.5 H 15.3 H (4.3-11.1) K/mcL Hgb 13.4 12.5 L (12.9-16.9) g/dL Hct 41.5 38.9 (37.5-50.1) % Plt Count 346 335 (140-400) K/mcL BMP 04/04/19 04/05/19 17:34 02:13 Sodium 141 140 Potassium 3.5 3.6 Chloride 100 99 Carbon Dioxide 30 H 29 BUN 23 23 Creatinine 1.30 1.47 H Glucose 162 H 213 H Calcium 10.1 9.5 Cardiac Enzymes 04/04/19 04/05/19 Range/Units 17:34 02:13 Troponin I < 0.03 < 0.03 (< 0.04) ng/mL Liver Function 04/05/19 Range/Units 02:13 Total Bilirubin 0.4 (0.3-1.0) mg/dL AST 18 (13-39) Units/L ALT 16 (7-52) Units/L Alkaline Phosphatase 83 (34-104) Units/L Albumin 4.0 (3.5-5.7) g/dL Urine 04/04/19 Range/Units 18:53 Urine Color Yellow (Yellow) Urine Clarity Clear (Clear) Urine pH 7.0 (5.0-8.0) pH Units Ur Specific [place] 1.009 L (1.010-1.025) Urine Protein Negative (Neg-Trace) mg/dL Urine Glucose (UA) Normal (Normal) mg/dL - ABG Interpretation ABG results: PT/INR, D-dimer PT 12.2 Seconds (9.4-12.1) H 04/05/19 02:13 - Impressions Impressions Chest X-Ray 04/04/19 17:35 IMPRESSION: No acute cardiopulmonary disease. D/ / Roe Le MD / Roe Le MD Interpreting Provider: Roe Le MD Head CT 04/04/19 17:35 IMPRESSION: No acute intracranial abnormality. Chronic lacune infarcts identified involving left basal ganglia. Questionable perisylvian dot sign on the left. Critical results were called by Dr. Rex Jasmine to Caty Jc DO on 04/04/2019 at 17:58. D/ / Rex Jasmine / Rex Jasmine Interpreting Provider: Rex Jasmine Head CTA 04/04/19 17:48 IMPRESSION: No focal significant arterial narrowing is noted in the neck No focal significant arterial narrowing is noted in the head. No aneurysm D/ / Roe Singh / Roe Singh Interpreting Provider: Roe Singh Neck CTA 04/04/19 17:48 IMPRESSION: No focal significant arterial narrowing is noted in the neck No focal significant arterial narrowing is noted in the head. No aneurysm D/ / Roe Singh / Roe Singh Interpreting Provider: Roe Singh Consult Discharge Plan - Plan Referrals: [facility] [Primary Care Provider] -
--- NOTE | 2019-04-05 09:46 | Electrocardiograph Report ---
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
[2019-04-05] MEDS: Gabapentin 100 MG CAPSULE PO SCH ×3 (10:17→21:07)
[2019-04-05] MEDS: (Roflumilast [Daliresp] 500 MCG) PO SCH (10:18)
[2019-04-05] MEDS: Pyridoxine (B-6) 50 MG TABLET PO SCH (10:18)
--- NOTE | 2019-04-05 11:09 | Neurology - Consult Note ---
<Naif Chowdary - Last Filed: 04/05/19 15:42> Date of Encounter: 04/05/19 Time of Encounter: 11:02 Assessment and Plan (1) Stroke-like symptoms Current Visit: Yes Status: Acute P/W garbled speech, dizziness, and right sided parasthesias This in the setting of recent carotid artery thrombectomy Neurology c/s with concerns for acute CVA H/O remote CVA with residual Rt sided deficits; also has chronic Rt arm weakness s/p repair and reinjury Risk factors include uncontrolled DM and HTN, CAD, PVD, HLD, and previous CVA NIH 5 but mostly d/t chronic deficits; NIH 2 if your discount chronic deficits CT of the head completed in the ED showing no acute intracranial abnormality. Finding chronic lacunar infarcts involving the left basal ganglia and a questionable parasylvian dot sign on the left Subsequently a CTA of the head and neck were completed finding no focal intracranial stenosis and no focal cervical vascular stenosis an echocardiogram was completed findings show valvular dysfunction, no intracardiac thrombus or PFO An MRI of the brain was completed and was negative for any acute intracranial abnormality or acute infarct finding only lysg-ya-jenjtgfi global parenchymal volume loss with mild chronic microvascular ischemic changes The neurological exam revealed chronic right arm and right leg weakness which the patient reports is his normal. Additionally, there was a right sided sensory deficit with difficulty differentiating between sharp and dull however it is unclear if this is acute or chronic but I suspect that it is most likely chronic give MRI imaging showing no acute findings. He reports that the parasthesias have almost resolved since his admission and his speech is also almost back to baseline. I suspect that he may have had a TIA given the abrupt onset of symptoms and quick resolution especially in the setting of a negative neurological workup. His vascular surgeon recently stopped his Plavix and informed him that 325mg ASA would be better suited for him. As such proceed with ASA 325mg QD and c/w statin therapy. Recommending PT/OT consultation as he does have significant chronic right leg weakness and is reporting history of frequent falls with walker dependence. He will most likely benefit from inpatient rehabilitation. Otherwise, continue with medical and supportive care History of Present Illness Chief complaint: Strokelike symptoms HPI: Mr. Boyle is a 73 year old male with a PMH of CVA, COPD, DM, HLD, HTN and CT as well as severe obstructive sleep apnea. He reports that he had a recent right carotid thrombectomy approximately 3 weeks ago at [facility]. He presented to [facility] with chief complaints of dizziness, garbled speech, and paresthesias of the right face, arm and leg. Additionally, he notes that yesterday at around 11 AM he also had an episode of chest pain which required nitroglycerin for relief. Shortly thereafter the chest pain is on the dizziness began. He reports that while driving to the grocery store approximately 7 PM yesterday his symptoms began prompting him to come to the ED for further evaluation. In the ED and the initial NIH stroke scale was 5 and subsequently a stroke alert was called. Given the patient's recent procedure and symptoms is recommended that he admitted for further evaluation. A CT of the head was obtained and did not reveal any acute intracranial abnormality showing only chronic lacunar infarcts involving the left basal ganglia and a questionable parasylvian dot sign on the left. Follow-up neuroimaging included a CT angiogram of the head and neck which found no focal significant arterial narrowing in the neck and no focal significant arterial narrowing in the head and was negative for aneurysm. At the time of my assessment this morning the patient reports that his speech is significantly improved, and the dizziness has resolved. However, he has continued to have right facial, right arm and leg paresthesias although these are improving as well. He underwent MRI of the brain this morning which was negative for an acute infarct or acute intracranial abnormality finding only mild-moderate global parenchymal volume loss with mild chronic microvascular ischemic changes. I have reviewed the patient's labs and he appears to have leukocytosis on CBC with elevated WBC of 15.3. Additionally, he has a mild acute kidney injury on the chemistry panel with a serum creatinine of 1.47. He is afebrile and his vitals are stable. Past Med Surg Social Fam HX - Past Medical History Medical history: COPD, CVA, diabetes, hyperlipidemia, hypertension, myocardial infarction, renal disease, other Additional medical history: SEVER OBSTRUCTIVE SLEEP APNEA Psychiatric history: anxiety, depression - Past Surgical History Surgical History: carotid endarterectomy Additional surgical history: SHOULDER REPLACEMENT RIGHT X 2 , BACK SURGERY 1991, Thromboectomy to carotid 02/2019 - Social History Smoking Status: Former smoker Smokeless Tobacco Status: No Alcohol use: none Drug use: none Medications and Allergies Albuterol Sulfate [Albuterol Inhaler] 2 puff IH Q4HR PRN 02/16/17 [History] Budesonide/Formoterol 160/4.5 [Symbicort 160/4.5] 2 puff IH BIDR 02/16/17 [History] Furosemide [Lasix] 80 mg PO QPM 02/16/17 [History] Furosemide [Lasix] 120 mg PO QAM 02/16/17 [History] HYDROcodone/Acet 5/325 mg [Rydal 5-325 mg] 1 tab PO Q6H PRN 02/16/17 [History] Roflumilast [Daliresp] 500 mcg PO DAILY 02/16/17 [History] Tiotropium [Spiriva] 2 puff IH DAILY 02/16/17 [History] glipiZIDE [Glucotrol] 5 mg PO BIDWM 02/16/17 [History] hydrOXYzine pamoate [HydrOXYzine Pamoate] 25 mg PO TID PRN 02/16/17 [History] Acetylcysteine [Nac] 600 mg PO BID 10/25/17 [History] Gabapentin [Neurontin] 300 mg PO TID 12/06/17 [History] Allopurinol [Zyloprim 100 MG] 100 mg PO DAILY 04/04/19 [History] Aspirin Enteric Coated [Aspirin EC] 325 mg PO DAILY 04/04/19 [History] Atorvastatin [Lipitor] 80 mg PO HS 04/04/19 [History] Memantine [Namenda] 10 mg PO BID 04/04/19 [History] Pyridoxine (B-6) [Vitamin B-6] 50 mg PO DAILY 04/04/19 [History] Tamsulosin HCl [Flomax] 0.4 mg PO HS 04/04/19 [History] Allergy/AdvReac Type Severity Reaction Status Date / Time Cyclobenzaprine AdvReac Hypotension Verified 02/16/17 14:57 [From Flexeril] oxycodone AdvReac Hypotension Verified 04/04/19 23:43 All Systems: The remainder of the systems were reviewed and are negative Review of Systems: REVIEW OF SYSTEMS GENERAL: Negative for any nausea, vomiting, fevers, chills NEUROLOGIC: Negative for any blurry vision, blind spots, double vision, facial asymmetry, dysphagia, hemiparesis, ataxia, seizures, paralysis, unilateral weakness Positive-right facial paresthesias, paresthesias of the right arm and leg. Initially had some garbled speech which he reports as resolved. Initially had dizziness which is now resolved. HEENT: Negative for any head trauma, neck trauma, neck stiffness, photophobia, phonophobia CARDIAC: Negative for any dyspnea, peripheral edema or palpitations. Positive- chest pain GENITOURINARY: Negative for any dysuria, hematuria, incontinence. Physical Examination - Vital Signs Vital Signs: Initial Vital Signs Temp Pulse Resp BP Pulse Ox 97.6 F 88 15 177/95 97 04/04/19 17:33 04/04/19 17:33 04/04/19 17:33 04/04/19 17:33 04/04/19 17:33 - Exam Exam: Examination: General Examination: *CONSTITUTIONAL: Alert and oriented x3, no acute distress *GENERAL APPEARANCE OF PATIENT generally ill appearing obese elderly male *EYES: pupils equal, round, reactive to light and accommodation, conjunctiva clear *CARDIOVASCULAR no peripheral edema, distal temperature normal, dorsalis pedis pulses normal. see vitals Musculoskeletal: *GAIT AND STATION patient is walker dependent for ambulation. gait alterations with right leg weakness with ambulation. He was seen dragging his right leg *ASSESSMENT OF MUSCLE STRENGTH IN THE UPPER AND LOWER EXTREMITIES right deltoid, bicep, tricep, tech intern strength 4/5, left deltoid, bicep, tricep, tech intern strength 4/5 strength on (L > R), b/l hip flexors ,anterior tibialis, dorsoflexion of the foot 4/5 *MUSCLE TONE IN THE UPPER AND LOWER EXTREMITIES normal. No abnormal movements, fasciculations or atrophy identified. Neurological: *ORIENTATION to person, situation, time and place *RECURRENT AND REMOTE MEMORY intact *ATTENTION AND CONCENTRATION are normal *LANGUAGE FUNCTION speech is somewhat garbled *FUND OF KNOWLEDGE aware of current events, past history, vocabulary *MENTAL attention span and concentration normal. *CN II optic fundi were normal, no papilledema noted. *CN III,IV, PERRLA extraocular eye movements were full, no nystagmus and no ptosis noted. *CN V shows normal sensation and jaw opens symmetrically. *CN VII shows normal facial movement symmetrically, upper and lower bilaterally. *CN VIII shows no significant hearing loss on exam *CN IX,,X palate elevated symmetrically *CN XI normal strength in the sternocleidomastoid muscles, symmetrical shoulder shrugging. *CN XII tongue protruded in the midline, with normal strength and movement. *SENSORY EXAMINATION unable to differentiate between dull and sharp sensation on the right side; has chronic sensory loss below the knee b/l *REFLEXES: deep tendon reflexes were absent diffusely, no pathological reflexes were noted. *CEREBELLAR TESTING normal finger to nose on the left, unable to perform on the right due to shoulder injury *PAIN LEVEL 0/10 Results - Laboratory Findings CBC and BMP: 04/05/19 02:13 04/05/19 02:13 Abnormal lab findings: Abnormal lab results WBC 15.3 K/mcL (4.3-11.1) H 04/05/19 02:13 RBC 4.01 M/mcL (4.19-5.50) L 04/05/19 02:13 Hgb 12.5 g/dL (12.9-16.9) L 04/05/19 02:13 PT 12.2 Seconds (9.4-12.1) H 04/05/19 02:13 APTT 38.3 Seconds (26.0-36.0) H 04/04/19 17:34 Carbon Dioxide 30 mEq/L (23-29) H 04/04/19 17:34 1.47 mg/dL (0.70-1.30) H 04/05/19 02:13 Est GFR ( Amer) 57 (> 60) L 04/05/19 02:13 Est GFR (Non-Af Amer) 47 (> 60) L 04/05/19 02:13 Glucose 213 mg/dL (70-105) H 04/05/19 02:13 POC Glucose 149 mg/dL (70-99) H 04/04/19 17:40 8.0 % (-5.6) H 04/05/19 02:13 Triglycerides 207 mg/dL (< 150) H 04/05/19 02:13 VLDL Cholesterol, Calc 41 mg/dL (< 31) H 04/05/19 02:13 26 mg/dL (40-59) L 04/05/19 02:13 5.2 (0-4.9) H 04/05/19 02:13 Ur Specific [place] 1.009 (1.010-1.025) L 04/04/19 18:53 - Diagnostic Findings Additional findings: CT/CT angio neck IMPRESSION: No focal significant arterial narrowing is noted in the neck No focal significant arterial narrowing is noted in the head. No aneurysm MR/MR head/brain wo con IMPRESSION: 1. No acute intracranial abnormality. No acute infarct. 2. Yckc-pg-[id number] global parenchymal volume loss with mild chronic microvascular ischemic changes. Consult Discharge Plan - Plan [facility]errals: [facility] [Primary Care Provider[facility] - <JoshOtoniel Mayorga - Last Filed: 04/05/19 17:58> Date of Encounter: 04/05/19 Assessment and Plan (1) Stroke-like symptoms Current Visit: Yes Status: Acute I have personally performed a jagn-xu-oapl assessment of the patient and have reviewed the PA/CERTIFIED DRUG COUNSELOR note. My impressions are as follows: I agree with the assessment and plan as stated above. It seems that the weakness that this individual is experiencing is due to a combination of mechanical factors involving the shoulder along with chronic right leg weakness. There is no evidence to support acute cerebral infarct or TIA. I will reevaluate her at your request. Maintain ongoing aggressive management of his stroke risk factors. History of Present Illness HPI: The chart was reviewed, the patient was seen and examined independently. Case was discussed with the STOCKROOM KEEPER. I agree with his assessment of the history of present illness as stated above. MRI scan of the brain was negative. CTA of the head and neck was negative as well. All Systems: The remainder of the systems were reviewed and are negative Review of Systems: Balance of the systems review is negative. Physical Examination - Vital Signs Vital Signs: Initial Vital Signs Temp Pulse Resp BP Pulse Ox 97.6 F 88 15 177/95 97 04/04/19 17:33 04/04/19 17:33 04/04/19 17:33 04/04/19 17:33 04/04/19 17:33 - Exam Exam: I have personally performed a acqb-ue-gyoo assessment of the patient and have reviewed the PA/CERTIFIED DRUG COUNSELOR note. My impressions are as follows: I agree with the documentation of the neurologic examination as above. Results - Laboratory Findings CBC and BMP: 04/05/19 02:13 04/05/19 02:13 Abnormal lab findings: Abnormal lab results WBC 15.3 K/mcL (4.3-11.1) H 04/05/19 02:13 RBC 4.01 M/mcL (4.19-5.50) L 04/05/19 02:13 Hgb 12.5 g/dL (12.9-16.9) L 04/05/19 02:13 PT 12.2 Seconds (9.4-12.1) H 04/05/19 02:13 APTT 38.3 Seconds (26.0-36.0) H 04/04/19 17:34 Carbon Dioxide 30 mEq/L (23-29) H 04/04/19 17:34 1.47 mg/dL (0.70-1.30) H 04/05/19 02:13 Est GFR ( Amer) 57 (> 60) L 04/05/19 02:13 Est GFR (Non-Af Amer) 47 (> 60) L 04/05/19 02:13 Glucose 213 mg/dL (70-105) H 04/05/19 02:13 POC Glucose 151 mg/dL (70-99) H 04/05/19 10:13 8.0 % (-5.6) H 04/05/19 02:13 Triglycerides 207 mg/dL (< 150) H 04/05/19 02:13 VLDL Cholesterol, Calc 41 mg/dL (< 31) H 04/05/19 02:13 26 mg/dL (40-59) L 04/05/19 02:13 5.2 (0-4.9) H 04/05/19 02:13 Ur Specific [place] 1.009 (1.010-1.025) L 04/04/19 18:53
[2019-04-05] MEDS: Budesonide/Formoterol 160/4.5 1 PUFF INH IH SCH ×2 (11:41→21:33)
[2019-04-05] MEDS: Tiotropium 18 MCG inhalation IH SCH (11:42)
[2019-04-05] MEDS: *HR* Acetylcysteine 20% 600 MG/3 ML ORAL SYRINGE PO SCH ×2 (12:20→21:09)
[2019-04-05] MEDS: *HR* HYDROcodone/Acet 5/325 mg TABLET PO PRN (21:07)
[2019-04-06] MEDS: *HR* Heparin 5,000 UNIT/ML VIAL SQ SCH ×3 (06:09→20:37)
[2019-04-06] MEDS: Budesonide/Formoterol 160/4.5 1 PUFF INH IH SCH ×2 (07:42→20:17)
[2019-04-06] MEDS: Tiotropium 18 MCG inhalation IH SCH (07:42)
--- NOTE | 2019-04-06 08:16 | Internal Med Progress Note ---
Hospitalist Progress Note - Encounter Date of Encounter: 04/06/19 Time of Encounter: 08:16 - Subjective Interval History: Pt today says he feels good, back to his baseline. He is still curious as to what happened, but relieved that the scans thus far are negative. He is concerned he will keep having TIAs going forward, and this was discussed as a possibility. PT/OT rec SNF, and pt amenable. Denies CP, SOB, further dizziness, N/V/D. - Exam Vitals: Temp Pulse Resp BP Pulse Ox 97.7 F 64 17 126/47 99 04/06/19 06:37 04/06/19 06:37 04/06/19 07:45 04/06/19 06:37 04/06/19 07:45 Exam: General: Alert and oriented 3 sitting in bedside chair Cardiovascular:Normal S1 & S2, pulse regular. Lungs:Normal breath sounds, no wheezes or crackles. Abdomen:Soft, non-tender Extremities:No deformity, no edema Neurological:Normal cognition; speech is slightly garbled. Cranial nerves II through XII intact. Sensation intact. Muscle strength 4 out of 5 in RUE. Able to stand unassisted with only minor difficulty Pulses:Carotid and radial pulses normal +2. - Summary of Assessment and Plan Summary of Assessment and Plan: Moses Boyle is a 73 M w hx CVA, CAD, HTN, DM2 c/b neuropathy, COPD on 3L, DEMETRIO on CPAP, CKD3a, obesity, who p/w dizziness, slurred speech, and R-sided paresthesias, concerning for TIA/CVA TIA/CVA: p/w R-sided paresthesias, slurred speech. Pt had recent CVA s/p TPA followed by L carotid thrombectomy at [facility]. CTA head/neck unremarkable. Acute deficits resolved, still has mild chronic slurred speech and RUE/RLE str 4/5. MRI head w/o infarcts. - ASA 81, Lipitor 80 - Neuro consult, pending rec's - PT/OT, rec SNF - Speech consult COPD and chronic hypoxic resp failure: home 3L, home inhalers CAD/HLD: ASA, statin HTN: home meds DM2: uncontrolled, w peripheral neuropathy and hyperglycemia, basal insulin + SS I DEMETRIO: home cpap qhs CKD3a: noted, renally dose and monitor Obesity: BMI 33 PPx: lovenox FEN: cardiac ADA, no MIVF Lines: PIV Consults: Neuro Code: Full Dispo: obs for TIA, anticipate 2-3 days, PT/OT rec SNF and pt has used medicare days already and thus will need to use [employer] benefits, f/u monday Internal Medicine: Result - Labs CBC & Chem 7: 04/05/19 02:13 04/06/19 09:42 - ABG Interpretation ABG results: PT/INR, D-dimer PT 12.2 Seconds (9.4-12.1) H 04/05/19 02:13 - Impressions Impressions Cervical Spine MRI 04/05/19 10:10 IMPRESSION: 1. Motion limited evaluation. 2. No acute abnormality of the cervical spine. 3. Moderate C5-6 through C7-T1 degenerative disc disease with disc bulges causing mild spinal canal stenosis. 4. Multilevel neural foraminal narrowing as detailed above and greatest involving the left C8 neural foramina where it is severe. D/ / Robert Terry / Robert Terry Interpreting Provider: Robert Terry Brain MRI 04/05/19 22:56 IMPRESSION: 1. No acute intracranial abnormality. No acute infarct. 2. Hqrl-zj-alfzmzcx global parenchymal volume loss with mild chronic microvascular ischemic changes. D/ / Tremayne Ingram MD / Tremayne Ingram MD Interpreting Provider: Tremayne Ingram MD Echocardiogram 04/05/19 22:59 Impressions: LVEF 60%. Indeterminate diastolic function. Definity echo contrast was used. Normal right ventricular structure and function. Mild mitral regurgitation. No pulmonary hypertension. No evidence of PFO with agitated saline contrast. Left Ventricular Wall Motion: Rest Echo Findings The mid inferior lateral and basal inferior lateral fox were not visualized. All other wall segments showed normal motion. Findings: Study Quality * Technically adequate exam. ECG Findings * Normal sinus rhythm. Left Ventricle * Indeterminate diastolic function. * LVEF 60%. * Normal LV chamber size, wall thickness and function. * Definity echo contrast was used. Right Ventricle * Normal right ventricular structure and function. Left Atrium * Normal left atrial size. Right Atrium * Normal right atrial size. Aortic Valve * No aortic regurgitation. * Aortic valve not well visualized. * No aortic stenosis. Mitral Valve * Normal mitral valve structure. * No mitral stenosis. * Mild mitral regurgitation. Tricuspid Valve * Tricuspid valve not well visualized. * Trace tricuspid regurgitation. * Estimated RA pressure is 8 mmHg. Pulmonic Valve * Pulmonic valve is not well visualized. * No pulmonic stenosis. * No pulmonic regurgitation. Pulmonary Artery * Pulmonary artery not well visualized. Aorta * Normally sized aortic root. Pericardium * There is no pericardial effusion present. Interatrial Septum * No evidence of PFO by color Doppler. * No evidence of PFO with agitated saline contrast. IVC * The IVC is not dilated. * < 50% respiratory change. Consult Discharge Plan - Plan [facility]errals: [facility] [Primary Care Provider] -
[2019-04-06] MEDS: Insulin LISPRO 300 UNITS/3 ML VIAL SQ SCH ×3 (08:55→18:24)
[2019-04-06] MEDS: Gabapentin 100 MG CAPSULE PO SCH ×3 (08:57→20:26)
[2019-04-06] MEDS: Pyridoxine (B-6) 50 MG TABLET PO SCH (08:57)
[2019-04-06] MEDS: Aspirin Enteric Coated 325 MG Tablet PO SCH (08:57)
[2019-04-06] MEDS: *HR* Acetylcysteine 20% 600 MG/3 ML ORAL SYRINGE PO SCH ×2 (08:59→20:26)
[2019-04-06] MEDS: (Roflumilast [Daliresp] 500 MCG) PO SCH (09:06)
[2019-04-06 10:17] LABS: Calcium 9.5 mg/dL (8.6-10.3); Potassium 3.9 mEq/L (3.5-5.1)
[2019-04-06] MEDS: *HR* HYDROcodone/Acet 5/325 mg TABLET PO PRN (20:26)
[2019-04-06] MEDS: Insulin DETEMIR 100 UNIT/ML X5UNITS SQ SCH (20:43)
[2019-04-07] MEDS: *HR* Heparin 5,000 UNIT/ML VIAL SQ SCH ×3 (05:56→21:06)
[2019-04-07] MEDS: *HR* HYDROcodone/Acet 5/325 mg TABLET PO PRN (05:57)
[2019-04-07 06:43] LABS: Hemoglobin 11.5 g/dL (12.9-16.9); Mean Corpuscular HGB Conc 31.9 g/dL (31.6-35.5); Mean Corpuscular Hemoglobin 31.7 pg (28.0-33.3); Mean Corpuscular Volume 99.2 fL (83.0-100.0); Platelet Count 268 K/mcL (140-400); Red Blood Count 3.63 M/mcL (4.19-5.50); Red Cell Distribution Width 13.3 % (11.5-14.5); White Blood Count 11.2 K/mcL (4.3-11.1)
[2019-04-07 07:06] LABS: BUN/Creatinine Ratio 16 (6-26); Blood Urea Nitrogen 20 mg/dL (8-23); Calcium 9.7 mg/dL (8.6-10.3); Carbon Dioxide 30 mEq/L (23-29); Chloride 104 mEq/L (98-107); Glucose 134 mg/dL (70-105); Osmolality,Calculated 295 (280-300); Potassium 3.9 mEq/L (3.5-5.1); Sodium 140 mEq/L (136-145); eGFR For African Americans > 60 (> 60); eGFR For Non-African Americans 59 (> 60)
[2019-04-07] MEDS: Insulin LISPRO 300 UNITS/3 ML VIAL SQ SCH ×3 (07:47→16:30)
--- NOTE | 2019-04-07 07:50 | Internal Med Progress Note ---
Hospitalist Progress Note - Encounter Date of Encounter: 04/07/19 Time of Encounter: 07:50 - Subjective Interval History: Today pt denies any changes from yesterday. He does, however, mention that he occasionally has episodes of sharp pain substernally that follow eating and that he often regurgitates some of his food, states as if it feels that food gets trapped in his esophagus. - Exam Vitals: Temp Pulse Resp BP Pulse Ox 97.4 F L 66 14 123/71 97 04/07/19 07:00 04/07/19 07:00 04/07/19 07:00 04/07/19 07:00 04/07/19 07:00 Exam: General: Alert and oriented 3 sitting in bed Cardiovascular:Normal S1 & S2, pulse regular. Lungs:Normal breath sounds, no wheezes or crackles. Abdomen:Soft, non-tender Extremities:No deformity, no edema Neurological:Normal cognition; speech is slightly garbled. Cranial nerves II through XII intact. Sensation intact. Muscle strength 4 out of 5 in RUE. Pulses:Carotid and radial pulses normal +2. - Summary of Assessment and Plan Summary of Assessment and Plan: Moses Boyle is a 73 M w hx CVA, CAD, HTN, DM2 c/b neuropathy, COPD on 3L, DEMETRIO on CPAP, CKD3a, obesity, who p/w dizziness, slurred speech, and R-sided paresthesias, concerning for TIA. TIA: p/w R-sided paresthesias, slurred speech. Pt had recent CVA s/p TPA followed by L carotid thrombectomy at [facility]. CTA head/neck unremarkable. Acute deficits resolved, still has mild chronic slurred speech and RUE/RLE str 4/5. MRI head w/o infarcts. - ASA 81, Lipitor 80 - Neuro consulted, appreciate rec's - PT/OT, rec SNF - Speech consult for Monday Chest pain and food regurgitation: - barium swallow, consider GI consultation pending results COPD and chronic hypoxic resp failure: home 3L, home inhalers CAD/HLD: ASA, statin HTN: home meds DM2: uncontrolled, w peripheral neuropathy and hyperglycemia, basal insulin + SSI DEMETRIO: home cpap qhs CKD3a: noted, renally dose and monitor Obesity: BMI 33 PPx: lovenox FEN: cardiac ADA, no MIVF Lines: PIV Consults: Neuro Code: Full Dispo: obs for TIA, anticipate 1-2 days awaiting SNF placement, f/u SW tomorrow Internal Medicine: Result - Labs CBC & Chem 7: 04/07/19 06:14 04/07/19 06:14 Labs: Short CBC 04/07/19 Range/Units 06:14 WBC 11.2 H (4.3-11.1) K/mcL Hgb 11.5 L (12.9-16.9) g/dL Hct 36.0 L (37.5-50.1) % Plt Count 268 (140-400) K/mcL BMP 04/06/19 04/07/19 09:42 06:14 Sodium 139 140 Potassium 3.9 3.9 Chloride 101 104 Carbon Dioxide 30 H 30 H BUN 22 20 Creatinine 1.42 H 1.22 Glucose 220 H 134 H Calcium 9.5 9.7 - ABG Interpretation ABG results: PT/INR, D-dimer PT 12.2 Seconds (9.4-12.1) H 04/05/19 02:13 Consult Discharge Plan - Plan [facility]errals: [facility] [Primary Care Provider] -
[2019-04-07] MEDS: Budesonide/Formoterol 160/4.5 1 PUFF INH IH SCH ×2 (08:00→20:14)
[2019-04-07] MEDS: Tiotropium 18 MCG inhalation IH SCH (08:01)
[2019-04-07] MEDS: Pyridoxine (B-6) 50 MG TABLET PO SCH (09:20)
[2019-04-07] MEDS: Gabapentin 100 MG CAPSULE PO SCH ×3 (09:21→21:07)
[2019-04-07] MEDS: *HR* Acetylcysteine 20% 600 MG/3 ML ORAL SYRINGE PO SCH ×2 (09:21→21:07)
[2019-04-07] MEDS: Aspirin Enteric Coated 325 MG Tablet PO SCH (09:21)
[2019-04-07] MEDS: (Roflumilast [Daliresp] 500 MCG) PO SCH (09:26)
[2019-04-07] MEDS: Insulin DETEMIR 100 UNIT/ML X5UNITS SQ SCH (21:07)
[2019-04-08] MEDS: *HR* HYDROcodone/Acet 5/325 mg TABLET PO PRN ×3 (03:30→21:56)
[2019-04-08] MEDS: *HR* Heparin 5,000 UNIT/ML VIAL SQ SCH ×4 (06:47→21:11)
[2019-04-08 07:38] LABS: Hematocrit 36.5 % (37.5-50.1); Hemoglobin 11.7 g/dL (12.9-16.9); Mean Corpuscular HGB Conc 32.1 g/dL (31.6-35.5); Mean Corpuscular Hemoglobin 31.8 pg (28.0-33.3); Mean Corpuscular Volume 99.2 fL (83.0-100.0); Platelet Count 267 K/mcL (140-400); Red Blood Count 3.68 M/mcL (4.19-5.50); Red Cell Distribution Width 13.4 % (11.5-14.5); White Blood Count 11.9 K/mcL (4.3-11.1)
[2019-04-08] MEDS: Budesonide/Formoterol 160/4.5 1 PUFF INH IH SCH ×2 (07:43→20:46)
[2019-04-08] MEDS: Tiotropium 18 MCG inhalation IH SCH (07:43)
--- NOTE | 2019-04-08 07:55 | Internal Med Progress Note ---
Hospitalist Progress Note - Encounter Date of Encounter: 04/08/19 Time of Encounter: 07:55 - Subjective Interval History: No changes from yesterday. Pt waiting patiently for barium swallow and for discussion with PINO. Patricioies CP, SOB, dizziness, N/V/D. - Exam Vitals: Temp Pulse Resp BP Pulse Ox 97.8 F 63 16 130/76 98 04/08/19 04:03 04/08/19 04:03 04/08/19 07:43 04/08/19 04:03 04/08/19 07:43 Exam: General: Alert and oriented 3 sitting up in bed Cardiovascular: Normal S1 & S2, pulse regular. Lungs: Normal breath sounds, no wheezes or crackles. Abdomen: Soft, non-tender Extremities: No deformity, no edema Neurological: Normal cognition; speech is slightly garbled. Cranial nerves II through XII intact. Sensation intact. Muscle strength 4 out of 5 in RUE. Pulses: Carotid and radial pulses normal +2. - Summary of Assessment and Plan Summary of Assessment and Plan: Moses Boyle is a 73 M w hx CVA, CAD, HTN, DM2 c/b neuropathy, COPD on 3L, DEMETRIO on CPAP, CKD3a, obesity, who p/w dizziness, slurred speech, and R-sided paresthesias, concerning for TIA. TIA: p/w R-sided paresthesias, slurred speech. Pt had recent CVA s/p TPA followed by L carotid thrombectomy at [facility]. CTA head/neck unremarkable. Acute deficits resolved, still has mild chronic slurred speech and RUE/RLE str 4/5. MRI head w/o infarcts. - Neuro consulted, appreciate rec's - ASA 81, Lipitor 80 - PT/OT, rec SNF for which PINO consulted, complicated situation - Speech consult for today Chest pain and food regurgitation: - barium swallow later today, consider GI consultation pending results COPD and chronic hypoxic resp failure: home 3L, home inhalers CAD/HLD: ASA, statin HTN: home meds DM2: uncontrolled, w peripheral neuropathy and hyperglycemia, basal insulin + SSI DEMETRIO: home cpap qhs CKD3a: noted, renally dose and monitor Obesity: BMI 33 PPx: lovenox FEN: cardiac ADA, no MIVF Lines: PIV Consults: Neuro Code: Full Dispo: inpatient ([facility]) for [facility], anticipate 1-2 days awaiting SNF placement Internal Medicine: Result - Labs CBC & Chem 7: 04/08/19 06:56 04/08/19 06:56 Labs: Short CBC 04/08/19 Range/Units 06:56 WBC 11.9 H (4.3-11.1) K/mcL Hgb 11.7 L (12.9-16.9) g/dL Hct 36.5 L (37.5-50.1) % Plt Count 267 (140-400) K/mcL - ABG Interpretation ABG results: PT/INR, D-dimer PT 12.2 Seconds (9.4-12.1) H 04/05/19 02:13 Consult Discharge Plan - Plan [facility]errals: [facility] [Primary Care Provider] -
[2019-04-08 07:58] LABS: BUN/Creatinine Ratio 19 (6-26); Blood Urea Nitrogen 22 mg/dL (8-23); Carbon Dioxide 30 mEq/L (23-29); Chloride 102 mEq/L (98-107); Glucose 132 mg/dL (70-105); Osmolality,Calculated 297 (280-300); Potassium 4.3 mEq/L (3.5-5.1); Sodium 141 mEq/L (136-145); eGFR For African Americans > 60 (> 60); eGFR For Non-African Americans > 60 (> 60)
[2019-04-08] MEDS: Insulin LISPRO 300 UNITS/3 ML VIAL SQ SCH ×3 (08:36→16:19)
[2019-04-08] MEDS: (Roflumilast [Daliresp] 500 MCG) PO SCH (09:11)
[2019-04-08] MEDS: Pyridoxine (B-6) 50 MG TABLET PO SCH (09:11)
[2019-04-08] MEDS: Gabapentin 100 MG CAPSULE PO SCH ×3 (09:11→21:08)
[2019-04-08] MEDS: Aspirin Enteric Coated 325 MG Tablet PO SCH (09:11)
[2019-04-08] MEDS: *HR* Acetylcysteine 20% 600 MG/3 ML ORAL SYRINGE PO SCH ×2 (09:12→21:10)
[2019-04-08] MEDS ORDERED: E-Z-PAQUE (BARIUM SULF) SUSP 1 BOTTLE PO ONE (13:46)
[2019-04-08] MEDS ORDERED: Simethicone/Sodium Bic/Citr Ac 1 EACH GRAN.EF.PK PO ONE (13:46)
[2019-04-08] MEDS ORDERED: E-Z-HD (BARIUM SULF) SUSPENSION PO ONE (13:46)
[2019-04-08] MEDS: Insulin DETEMIR 100 UNIT/ML X5UNITS SQ SCH (21:11)
[2019-04-09] MEDS: *HR* HYDROcodone/Acet 5/325 mg TABLET PO PRN ×2 (04:03→14:00)
[2019-04-09] MEDS: *HR* Heparin 5,000 UNIT/ML VIAL SQ SCH ×3 (05:31→21:56)
--- NOTE | 2019-04-09 07:53 | Internal Med Progress Note ---
Hospitalist Progress Note - Encounter Date of Encounter: 04/09/19 Time of Encounter: 07:52 - Subjective Interval History: Pt states no problems since yesterday. Curious as to results of barium swallow. Willing to take PPI for a few months. Denies fever, N/V/D, dizziness, or worsening dysphonia or weakness. - Exam Vitals: Temp Pulse Resp BP Pulse Ox 98 F 66 26 120/66 98 04/09/19 04:56 04/09/19 04:56 04/09/19 04:56 04/09/19 04:56 04/09/19 04:56 Exam: General: Alert and oriented 3 sitting up in bed Cardiovascular: Normal S1 & S2, pulse regular. Lungs: Normal breath sounds, no wheezes or crackles. Abdomen: Soft, non-tender Extremities: No deformity, no edema Neurological: Normal cognition; speech remains slightly garbled. Cranial nerves II through XII intact. Sensation intact. Muscle strength 4 out of 5 in RUE. Pulses: Carotid and radial pulses normal +2. - Summary of Assessment and Plan Summary of Assessment and Plan: Moses Boyle is a 73 M w hx CVA, CAD, HTN, DM2 c/b neuropathy, COPD on 3L, DEMETRIO on CPAP, CKD3a, obesity, who p/w dizziness, slurred speech, and R-sided paresthesias, concerning for TIA. TIA: p/w R-sided paresthesias, slurred speech. Pt had recent CVA s/p TPA followed by L carotid thrombectomy at [facility]. CTA head/neck unremarkable. Acute deficits resolved, still has mild chronic slurred speech and RUE/RLE str 4/5 which are chronic. MRI head w/o infarcts. - Neuro consulted, appreciate rec's - ASA 81, Lipitor 80 - PT/OT, rec SNF for which SW consulted, complicated situation, awaiting tr ansfer to [place] Esophageal dysmotility: complained of chest pain and food regurgitation, barium swallow shows dysmotility - trial omeprazole 20 daily x3 months COPD and chronic hypoxic resp failure: home 3L, home inhalers CAD/HLD: ASA, statin HTN: home meds DM2: uncontrolled, w peripheral neuropathy and hyperglycemia, basal insulin + SSI DEMETRIO: home cpap qhs CKD3a: noted, renally dose and monitor Obesity: BMI 33 PPx: lovenox FEN: cardiac ADA, no MIVF Lines: PIV Consults: Neuro Code: Full Dispo: inpatient ([place]) for TIA, awaiting transfer to [place] for SNF or possibly inpatient awaiting SNF, remains medically ready for d/c Internal Medicine: Result - Labs CBC & Chem 7: 04/08/19 06:56 04/08/19 06:56 Labs: BMP 04/08/19 06:56 Sodium 141 Potassium 4.3 Chloride 102 Carbon Dioxide 30 H BUN 22 Creatinine 1.17 Glucose 132 H Calcium 10.0 - ABG Interpretation ABG results: PT/INR, D-dimer PT 12.2 Seconds (9.4-12.1) H 04/05/19 02:13 - Impressions Impressions Barium Swallow X-Ray 04/08/19 13:23 IMPRESSION: Multiple tertiary contractions throughout esophagus, suggestive of esophageal dysmotility. RECOMMENDATIONS: Recommend GI consultation for possible upper endoscopy with manometry. D/ / Thee Quesada MD / Thee Quesada MD Interpreting Provider: Thee Quesada MD Consult Discharge Plan - Plan [facility]errals: [facility] [Primary Care Provider] -
[2019-04-09] MEDS: Budesonide/Formoterol 160/4.5 1 PUFF INH IH SCH ×2 (07:58→19:21)
[2019-04-09] MEDS: Tiotropium 18 MCG inhalation IH SCH (07:59)
[2019-04-09] MEDS: Insulin LISPRO 300 UNITS/3 ML VIAL SQ SCH ×3 (08:10→16:57)
[2019-04-09] MEDS: Gabapentin 100 MG CAPSULE PO SCH ×3 (08:24→21:56)
[2019-04-09] MEDS: Pyridoxine (B-6) 50 MG TABLET PO SCH (08:24)
[2019-04-09] MEDS: *HR* Acetylcysteine 20% 600 MG/3 ML ORAL SYRINGE PO SCH ×2 (08:24→21:55)
[2019-04-09] MEDS: Aspirin Enteric Coated 325 MG Tablet PO SCH (08:24)
[2019-04-09] MEDS: (Roflumilast [Daliresp] 500 MCG) PO SCH (08:25)
[2019-04-09] MEDS: Insulin DETEMIR 100 UNIT/ML X5UNITS SQ SCH (21:58)
[2019-04-10] MEDS: *HR* HYDROcodone/Acet 5/325 mg TABLET PO PRN ×3 (00:12→18:33)
[2019-04-10] MEDS: *HR* Heparin 5,000 UNIT/ML VIAL SQ SCH ×3 (06:11→21:47)
[2019-04-10] MEDS: Budesonide/Formoterol 160/4.5 1 PUFF INH IH SCH ×2 (07:26→20:53)
[2019-04-10] MEDS: Tiotropium 18 MCG inhalation IH SCH (07:26)
--- NOTE | 2019-04-10 08:29 | Internal Med Progress Note ---
Hospitalist Progress Note - Encounter Date of Encounter: 04/10/19 Time of Encounter: 10:40 - Subjective Interval History: awake in bed. No numbness/tingling or weakness of face or extremities. neuropathy of feet at baseline. no headache or vision changes. awaiting snf placement. - Exam Vitals: Temp Pulse Resp BP Pulse Ox 97.6 F 64 18 128/66 99 04/10/19 06:54 04/10/19 06:54 04/10/19 06:54 04/10/19 06:54 04/10/19 06:54 Exam: gen- alert, awake,appears stated age eyes- pupils equal round cv- reg rate and rhythm, normal s1,s2, no jvd, no le edema lungs- ctabl, no wheezing, rhonchi or crackles, normal resp effort on o2 nc abd- soft, non tender, non distended, + bs neuro- AAOx3, CN grossly intact, mildly slurred speech, muscle strength 4/5 RUE, 5/5 other exts - Assessment and Plan (1) TIA (transient ischemic attack) Current Visit: Yes Status: Acute (2) Esophageal dysmotility Current Visit: Yes Status: Acute (3) Chronic respiratory failure with hypoxia Current Visit: Yes Status: Chronic - Summary of Assessment and Plan Summary of Assessment and Plan: Moses Boyle is a 73 M w hx CVA, CAD, HTN, DM2 c/b neuropathy, COPD on 3L, DEMETRIO on CPAP, CKD3a, obesity, who p/w dizziness, slurred speech, and R-sided paresthesias. He is admitted with TIA. TIA: p/w R-sided paresthesias, slurred speech. Pt had recent CVA s/p TPA followed by L carotid thrombectomy at [facility]. CTA head/neck unremarkable. Acute deficits resolved, still has mild chronic slurred speech and RUE/RLE str 4/5 w hich are chronic. MRI head w/o infarcts. - Neuro consulted, appreciate rec's - ASA 81, Lipitor 80 - PT/OT, rec SNF for which SW consulted, complicated situation, awaiting transfer to [place] Esophageal dysmotility: complained of chest pain and food regurgitation, barium swallow shows dysmotility - trial omeprazole 20 daily x3 months and fu outpt COPD and chronic hypoxic resp failure: home 3L, home inhalers CAD/HLD: ASA, statin HTN: home meds DM2: uncontrolled, w peripheral neuropathy and hyperglycemia- cont basal insulin + SSI DEMETRIO: home cpap qhs CKD3a: noted, renally dose and monitor Obesity: BMI 33 PPx: lovenox Dispo: inpatient ([place]) for TIA, awaiting transfer to [place] for SNF or possibly inpatient awaiting SNF, remains medically ready for d/c Internal Medicine: Result - Labs CBC & Chem 7: 04/08/19 06:56 04/08/19 06:56 - ABG Interpretation ABG results: PT/INR, D-dimer PT 12.2 Seconds (9.4-12.1) H 04/05/19 02:13 Consult Discharge Plan - Plan [facility]errals: [facility] [Primary Care Provider] -
[2019-04-10] MEDS: Pyridoxine (B-6) 50 MG TABLET PO SCH (09:01)
[2019-04-10] MEDS: Aspirin Enteric Coated 325 MG Tablet PO SCH (09:01)
[2019-04-10] MEDS: Gabapentin 100 MG CAPSULE PO SCH ×3 (09:02→21:46)
[2019-04-10] MEDS: *HR* Acetylcysteine 20% 600 MG/3 ML ORAL SYRINGE PO SCH ×2 (09:03→21:47)
[2019-04-10] MEDS: Insulin LISPRO 300 UNITS/3 ML VIAL SQ SCH ×3 (09:04→18:33)
[2019-04-10] MEDS: (Roflumilast [Daliresp] 500 MCG) PO SCH (09:04)
[2019-04-10] MEDS ORDERED: Insulin LISPRO 300 UNITS/3 ML VIAL SQ SCH (21:00)
[2019-04-10] MEDS: Insulin DETEMIR 100 UNIT/ML X5UNITS SQ SCH (21:46)
[2019-04-11] MEDS: *HR* HYDROcodone/Acet 5/325 mg TABLET PO PRN ×2 (00:43→08:16)
[2019-04-11] MEDS ORDERED: Acetaminophen IV 500 MG/50 ML INFUS..BTL IVPB ONE (05:27)
[2019-04-11] MEDS: *HR* Heparin 5,000 UNIT/ML VIAL SQ SCH (05:59)
[2019-04-11 07:22] VITALS: BP 118/51
[2019-04-11] MEDS: Budesonide/Formoterol 160/4.5 1 PUFF INH IH SCH (07:37)
[2019-04-11] MEDS: Tiotropium 18 MCG inhalation IH SCH (07:37)
--- NOTE | 2019-04-11 08:01 | Internal Med Progress Note ---
Hospitalist Progress Note - Encounter Date of Encounter: 04/11/19 - Exam Vitals: Temp Pulse Resp BP Pulse Ox 97.7 F 65 18 118/51 100 04/11/19 07:17 04/11/19 07:17 04/11/19 07:38 04/11/19 07:17 04/11/19 07:38 - Assessment and Plan (1) TIA (transient ischemic attack) Current Visit: Yes Status: Acute (2) Esophageal dysmotility Current Visit: Yes Status: Acute (3) Chronic respiratory failure with hypoxia Current Visit: Yes Status: Chronic - Time Spent with Patient Total time spent is greater than 50% in coordination of care (as documented) at patient's floor/unit and/or counseling patient: Internal Medicine: Result - Labs CBC & Chem 7: 04/08/19 06:56 04/08/19 06:56 - ABG Interpretation ABG results: PT/INR, D-dimer PT 12.2 Seconds (9.4-12.1) H 04/05/19 02:13 Consult Discharge Plan - Plan Referrals: [facility] [Primary Care Provider] -
[2019-04-11] MEDS: Gabapentin 100 MG CAPSULE PO SCH (08:17)
[2019-04-11] MEDS: *HR* Acetylcysteine 20% 600 MG/3 ML ORAL SYRINGE PO SCH (08:17)
[2019-04-11] MEDS: Pyridoxine (B-6) 50 MG TABLET PO SCH (08:17)
[2019-04-11] MEDS: Aspirin Enteric Coated 325 MG Tablet PO SCH (08:17)
[2019-04-11] MEDS: Insulin LISPRO 300 UNITS/3 ML VIAL SQ SCH ×2 (08:18→12:23)
--- NOTE | 2019-04-11 10:38 | Discharge Summary ---
- NOTES TO OUTPATIENT PROVIDER Notes to Outpatient Provider: TIA. Recommendation was dc to SNF. As could not get local [facility] bed, pt refused and preferred home with home health. Modified barium swallo with esophageal dysmotility . Omeprazole 3 mon trial and fu outpt. Provided pt with one month rx, defer to pcp for refills Date of Encounter: 04/11/19 Time of Encounter: 08:30 - Discharge Diagnosis (1) TIA (transient ischemic attack) Priority: Primary Status: Acute Assessment and Plan: TIA: p/w R-sided paresthesias, slurred speech. Pt had recent CVA s/p TPA followed by L carotid thrombectomy at [facility]. CTA head/neck unremarkable. Acute deficits resolved, still has mild chronic slurred speech and RUE/RLE str 4/5 which are chronic. MRI head w/o infarcts. Neuro consulted, appreciate rec's, follow up outpt neurology and [facility] as previously established re carotid thrombectomy - ASA 81, Lipitor 80 - PT/OT, rec SNF for which SW consulted, complicated situation,could not trans nicky to local [place], therefore he refused SNF and discharged to home with home health (2) Esophageal dysmotility Priority: Secondary Status: Chronic Assessment and Plan: Esophageal dysmotility: complained of chest pain and food regurgitation barium swallow shows dysmotility - trial omeprazole 20 daily x3 months and fu outpt for refills -[facility] order for speech therapy (3) Chronic respiratory failure with hypoxia Priority: Secondary Status: Chronic Hospital course: Mr. Boyle is a 73 year old male w hx CVA, CAD, HTN, DM2 c/b neuropathy, COPD on 3L, DEMETRIO on CPAP, CKD3a, obesity, who p/w dizziness, slurred speech, and R-sided paresthesias. Pt had recent CVA s/p TPA followed by L carotid thrombectomy at [facility]. He was found to have negative imaging and symptoms resolved with dx TIA. Appreciate Neuro input throughout course. His chronic co morbidities remained stable throughout admit. He was dx with esophageal dysmotility this admission. He was recommended SNF placement but due to inability to place at local [facility] he refused and opted to dc to home with [facility]. He understands he is at risk for falls but does not want placement at anywhere other than [facility] whom is unable to accommodate him. He is discharging to home in stable condition with [facility]. Full details of his hospital course can be found in the diagnoses section of this document. Discharge discussed with: patient, nurse, case management Time spent discussing smoking cessation with patient: more than 10 minutes - Time Spent with Patient Total time spent providing and/or coordinating discharge services: Time spent: Greater than 30 minutes (35 min) - Discharge Medications Prescriptions: New Omeprazole [PriLOSEC] 20 mg PO DAILY@0730 #30 capsule.dr Continued Tiotropium [Spiriva] 2 puff IH DAILY Roflumilast [Daliresp] 500 mcg PO DAILY hydrOXYzine pamoate [HydrOXYzine Pamoate] 25 mg PO TID PRN PRN Reason: Anxiety HYDROcodone/Acet 5/325 mg [[place] 5-325 mg] 1 tab PO Q6H PRN PRN Reason: Moderate Pain glipiZIDE [Glucotrol] 5 mg PO BIDWM Furosemide [Lasix] 120 mg PO QAM Furosemide [Lasix] 80 mg PO QPM Budesonide/Formoterol 160/4.5 [Symbicort 160/4.5] 2 puff IH BIDR Albuterol Sulfate [Albuterol Inhaler] 2 puff IH Q4HR PRN PRN Reason: Wheezing/SOB Acetylcysteine [Nac] 600 mg PO BID Gabapentin [Neurontin] 300 mg PO TID Allopurinol [Zyloprim 100 MG] 100 mg PO DAILY Aspirin Enteric Coated [Aspirin EC] 325 mg PO DAILY Atorvastatin [Lipitor] 80 mg PO HS Memantine [Namenda] 10 mg PO BID Pyridoxine (B-6) [Vitamin B-6] 50 mg PO DAILY Tamsulosin HCl [Flomax] 0.4 mg PO HS Home Medications: Albuterol Sulfate [Albuterol Inhaler] 2 puff IH Q4HR PRN 02/16/17 [History] Budesonide/Formoterol 160/4.5 [Symbicort 160/4.5] 2 puff IH BIDR 02/16/17 [History] Furosemide [Lasix] 80 mg PO QPM 02/16/17 [History] Furosemide [Lasix] 120 mg PO QAM 02/16/17 [History] HYDROcodone/Acet 5/325 mg [[place] 5-325 mg] 1 tab PO Q6H PRN 02/16/17 [History] Roflumilast [Daliresp] 500 mcg PO DAILY 02/16/17 [History] Tiotropium [Spiriva] 2 puff IH DAILY 02/16/17 [History] glipiZIDE [Glucotrol] 5 mg PO BIDWM 02/16/17 [History] hydrOXYzine pamoate [HydrOXYzine Pamoate] 25 mg PO TID PRN 02/16/17 [History] Acetylcysteine [Nac] 600 mg PO BID 10/25/17 [History] Gabapentin [Neurontin] 300 mg PO TID 12/06/17 [History] Allopurinol [Zyloprim 100 MG] 100 mg PO DAILY 04/04/19 [History] Aspirin Enteric Coated [Aspirin EC] 325 mg PO DAILY 04/04/19 [History] Atorvastatin [Lipitor] 80 mg PO HS 04/04/19 [History] Memantine [Namenda] 10 mg PO BID 04/04/19 [History] Pyridoxine (B-6) [Vitamin B-6] 50 mg PO DAILY 04/04/19 [History] Tamsulosin HCl [Flomax] 0.4 mg PO HS 04/04/19 [History] Omeprazole [PriLOSEC] 20 mg PO DAILY@0730 #30 capsule. 04/11/19 [Rx] Allergies/Adverse Reactions: Allergy/AdvReac Type Severity Reaction Status Date / Time Cyclobenzaprine AdvReac Hypotension Verified 02/16/17 14:57 [From Flexeril] oxycodone AdvReac Hypotension Verified 04/04/19 23:43 Date of admission: 04/08/19 11:34 [facility] care physician: [facility] Consults: 04/04/19 22:56 Consult to Neurology [CONS] Routine Consulting Provider: Neurology [facility] Reason for Consult: Concern for CVA Call Completed: No Consult to Occupational Therapy [CONS] Routine Comment: Evaluate, develop and implement POC Reason for Consult: Concern for Stroke Does patient have active BEDREST order?: No Is patient medically & hemodynamically stable?: Yes Consult to Physical Therapy [CONS] Routine Comment: Evaluate, develop and implement POC Reason for Consult: Concern for stroke Does patient have active BEDREST order?: No Is patient medically & hemodynamically stable?: Yes Consult to Manager Compliance [CONS] Routine Reason for SW Consult: Concern for stroke Discharging clinician: Martina Pelaez - Constitutional Vitals: Temp Pulse Resp BP Pulse Ox 97.7 F 65 18 118/51 100 04/11/19 07:17 04/11/19 07:17 04/11/19 07:38 04/11/19 07:17 04/11/19 07:38 Exam: Awake, pleasant eating breakfast. no coughing/choking with eating. sob is at baseline weakness rue at baseline. He denies any changes in speech, vision, wekaness and denies numbness/tingling. He is not willlong to go anywhere other than local [place] for SNF. He voiced he wants to go to home with [facility] since he cannot now go to [place]. He is aware he is at risk for falls but states he has been at [facility] and managing since stroke and feels at his baseline. He is agreeable to [facility] . He denies need for us to contact any family to update. gen- alert, awake,appears stated age cv- reg rate and rhythm, normal s1,s2, no le edema lungs- ctabl, no wheezing, rhonchi or crackles, normal resp effort on o2 nc 3L abd- soft, non tender, non distended neuro- AAOx3, CN grossly intact, mildly slurred speech at baseline, muscle strength 4/5 RUE, 5/5 other exts - Patient Status Disposition: Home Health Service Condition: Fair Functional capacity at discharge: uses cane/walker Overall status at discharge: patient is back to baseline - Discharge Instructions [facility] With: [facility] [Primary Care Provider[facility] - Forms: ED Satisfaction Letter Additional Instructions: YOU MUST FOLLOW UP WITH YOUR [facility]/VASCULAR SURGEON DOCTORS. Contact the MA immediately upon returning home to schedule appt. You declined rehab placement this admission. You MUST walk with walker. You are a fall risk as discussed. Home health care has been arranged. You were diagnosed with swallowing difficulty this admission. You are being treated with the medication Omeprazole to see if this will help. You need to follow up with your PCP to further evaluate this. - Diet and Activity Activity: ambulate only with your walker, as per physical therapy, increase activity as tolerated, wear oxygen at all times Diet: diabetic diet, low fat, low cholesterol, low salt diet
--- NOTE | 2019-04-11 10:56 | Physician Discharge Referral ---
Home Health/Hosp Referral Info Transfer to: Home Health Provider in Charge Post Discharge: PCP - Diagnosis (1) TIA (transient ischemic attack) Priority: Primary Status: Resolved (2) Esophageal dysmotility Priority: Secondary Status: Chronic (3) Chronic respiratory failure with hypoxia Priority: Secondary Status: Chronic (4) DEMETRIO (obstructive sleep apnea) Priority: Secondary Status: Chronic (5) Type 2 diabetes mellitus Priority: Secondary Status: Chronic (6) CAD (coronary artery disease) Priority: Secondary Status: Chronic (7) CKD (chronic kidney disease) stage 3, GFR 30-59 ml/min Priority: Secondary Status: Chronic (8) COPD (chronic obstructive pulmonary disease) Priority: Secondary Status: Chronic (9) Essential hypertension Priority: Secondary Status: Chronic (10) Mixed hyperlipidemia Priority: Secondary Status: Chronic (11) Stroke Priority: Secondary Status: Chronic - Respiratory Orders Oxygen / L per min (2-3 L continuous, cpap HS for DEMETRIO) Smoking Cessation: Smoking cessation has been advised. For more information, call the [employer] Tobacco Quit Line at 6-525-ZVLP-NOW. - Diet/Nutrition Diet/Nutrition Orders: No Added Salt (DASHAWN), Cardiac, No Concentrated Sweets - Activity Activity Orders: Walker - Services Needed Following services are medically necessary services: Nursing, Home Health Aide, Physical Therapy, Occupational Therapy, Speech Therapy (esopahgeal dysmotility on Modified barium swallow) Other Treatments: New rx is for omeprazole (3 month trial) for esophageal findings. PCP for refills. - Transfer Medications Prescriptions: Omeprazole [PriLOSEC] 20 mg PO DAILY@0730 #30 capsule.dr [place] Medications: Albuterol Sulfate [Albuterol Inhaler] 2 puff IH Q4HR PRN 02/16/17 [History] Budesonide/Formoterol 160/4.5 [Symbicort 160/4.5] 2 puff IH BIDR 02/16/17 [History] Furosemide [Lasix] 80 mg PO QPM 02/16/17 [History] Furosemide [Lasix] 120 mg PO QAM 02/16/17 [History] HYDROcodone/Acet 5/325 mg [[place] 5-325 mg] 1 tab PO Q6H PRN 02/16/17 [History] Roflumilast [Daliresp] 500 mcg PO DAILY 02/16/17 [History] Tiotropium [Spiriva] 2 puff IH DAILY 02/16/17 [History] glipiZIDE [Glucotrol] 5 mg PO BIDWM 02/16/17 [History] hydrOXYzine pamoate [HydrOXYzine Pamoate] 25 mg PO TID PRN 02/16/17 [History] Acetylcysteine [Nac] 600 mg PO BID 10/25/17 [History] Gabapentin [Neurontin] 300 mg PO TID 12/06/17 [History] Allopurinol [Zyloprim 100 MG] 100 mg PO DAILY 04/04/19 [History] Aspirin Enteric Coated [Aspirin EC] 325 mg PO DAILY 04/04/19 [History] Atorvastatin [Lipitor] 80 mg PO HS 04/04/19 [History] Memantine [Namenda] 10 mg PO BID 04/04/19 [History] Pyridoxine (B-6) [Vitamin B-6] 50 mg PO DAILY 04/04/19 [History] Tamsulosin HCl [Flomax] 0.4 mg PO HS 04/04/19 [History] Omeprazole [PriLOSEC] 20 mg PO DAILY@0730 #30 capsule. 04/11/19 [Rx] Allergies/Adverse Reactions: Allergy/AdvReac Type Severity Reaction Status Date / Time Cyclobenzaprine AdvReac Hypotension Verified 02/16/17 14:57 [From Flexeril] oxycodone AdvReac Hypotension Verified 04/04/19 23:43 Certification: Further, I certify that my clinical findings support that this patient is homebound (i.e. absences from home require considerable and taxing effort and are for medical reasons or orthodoxy services or infrequently or short duration when for other reasons) because: Homebound Reason: Patient requires assistance of a person or device to safely leave home, Leaving home requires considerable and taxing effort due to condition Attestation: My signature below is to certify that this patient is under my care and that I, or nurse practitioner, or a physician's bar assistant working with me, has a [id number] encounter with this patient.
== END 2019-04-11 15:00 | disposition home health service (06) | DRG 69 ==
LOC: 2NENU 17:29 → EMEROOARM 17:29 → SUATTDRO 22:09 → 2NENU 23:03 → SUATTDRO 04-08 11:34
PROVIDERS: ADMIT Internal Medicine; ATTEND Internal Medicine

== ENCOUNTER 2019-06-14 18:09 | Inpatient (IN) ==
--- NOTE | 2019-06-14 18:40 | Emergency Department Note ---
Disposition Clinical Impression: NSTEMI (non-ST elevated myocardial infarction) Disposition: Admitted As Inpatient Time of Disposition: 20:48 Chest Pain HPI - General Chief Complaint: ED Chest Pain Stated Complaint: Chest pain Time Seen by Provider: 06/14/19 18:13 Source: patient, EMS Mode of arrival: EMS Limitations: no limitations Vital Signs Reviewed: Yes Nursing Notes Reviewed: Yes - History of Present Illness HPI Narrative: Mr. Lopes is a 73 yo male with PMH of CAD s/p stent, HTN, CVA, CKD 3, DM, and COPD on home O2, presented the emergency department via EMS from the [place] for chest pain. Yesterday morning he began having central, chest pressure radiating to his back. He has had multiple episodes of this pressure, and took nitro three times yesterday and once today to relieve the pain. His back pain is also relieved with the nitro. Associated dyspnea. No nausea, vomiting, or diaphoresis. Not worsened with exertion. Troponin 0.361 at the [place]. He is currently chest pain free. He denies fevers, chills, cough, abdominal pain, or edema. Severity scale (1-10): 0 - Related Data Home Medications Medication Instructions Recorded Confirmed Albuterol Sulfate [Proventil 2 puff IH Q4HR PRN 02/16/17 04/04/19 Inhaler] Budesonide/Formoterol 160/4.5 2 puff IH BIDR 02/16/17 04/04/19 [Symbicort 160/4.5] Furosemide [Lasix] 80 mg PO QPM 02/16/17 04/04/19 Furosemide [Lasix] 120 mg PO QAM 02/16/17 04/04/19 GlipiZIDE [Glucotrol] 5 mg PO BIDWM 02/16/17 04/04/19 HYDROcodone/Acet 5/325 mg [[place] 1 tab PO Q6H PRN 02/16/17 04/04/19 5-325 mg] Roflumilast [Daliresp] 500 mcg PO DAILY 02/16/17 04/04/19 Tiotropium [Spiriva] 2 puff IH DAILY 02/16/17 04/04/19 hydrOXYzine pamoate [Vistaril] 25 mg PO TID PRN 02/16/17 04/04/19 Gabapentin [Neurontin] 300 mg PO TID 12/06/17 04/04/19 Allopurinol [Zyloprim 100 MG] 100 mg PO DAILY 04/04/19 04/04/19 Aspirin Enteric Coated [Aspirin EC] 325 mg PO DAILY 04/04/19 04/04/19 Atorvastatin [Lipitor] 80 mg PO HS 04/04/19 04/04/19 Memantine [Namenda] 10 mg PO BID 04/04/19 04/04/19 Pyridoxine (B-6) [Vitamin B-6] 50 mg PO DAILY 04/04/19 04/04/19 Tamsulosin HCl [Flomax] 0.4 mg PO HS 04/04/19 04/04/19 Cholecalciferol (D-3) [Vitamin D] 1,000 unit PO DAILY 06/14/19 06/14/19 Cyclobenzaprine [Flexeril] 10 mg PO TID PRN 06/14/19 06/14/19 Metformin HCl [Metformin HCl ER] 500 mg PO DAILY 06/14/19 06/14/19 Montelukast [Singulair] 10 mg PO DAILY 06/14/19 06/14/19 Naproxen [Naprosyn] 250 mg PO BID 06/14/19 06/14/19 Allergies Allergy/AdvReac Type Severity Reaction Status Date / Time Cyclobenzaprine AdvReac Hypotension Verified 02/16/17 14:57 [From Flexeril] oxycodone AdvReac Hypotension Verified 04/04/19 23:43 Review of Systems: Admits to chest pain, dyspnea. Denies fevers, chills, diaphoresis, cough, nausea, vomiting, abdominal pain, or edema. Chest Pain PMH - Past Medical History Medical history: Reports: COPD, coronary artery disease, CVA, diabetes, GERD, hyperlipidemia, hypertension, myocardial infarction, renal disease, other Surgical history: Reports: carotid endarterectomy Psychiatric history: Reports: anxiety, depression - Social History Smoking Status: Former smoker Alcohol use: Reports: none Drug use: Reports: none Physical Exam GEN: No acute distress, A&O3 HEAD: Atraumatic, normocephalic EYES: Pupils symmetric, sclera white, conjunctiva pink HEART: RRR, normal S1 and S2, no murmurs LUNGS: Diminished bilaterally, no wheezes, on oxygen NC ABD: Soft, nontender, nondistended, bowel sounds present EXT: No edema noted, pulses 2/4 NEURO: No focal deficits, cooperative with exam - General Limitations: no limitations General appearance: alert, in no apparent distress Course Vital Signs Temperature 97.1 F L 06/14/19 18:11 Pulse Rate 85 06/14/19 18:11 Respiratory Rate 18 06/14/19 18:11 Blood Pressure 140/81 06/14/19 18:11 O2 Sat by Pulse Oximetry 99 06/14/19 18:11 Temperature 97.1 F L 06/14/19 18:11 Pulse Rate 79 06/14/19 19:35 Respiratory Rate 18 06/14/19 20:06 Blood Pressure 128/75 06/14/19 19:35 O2 Sat by Pulse Oximetry 100 06/14/19 20:06 Oxygen Delivery Oxygen Delivery Nasal Cannula Chest Pain - MDM Narrative Medical decision making narrative: 73 yo M with significant cardiac history presenting with chest pain that is consistent with ACS/NSTEMI. He is currently chest pain free. [facility] E[facility] with sinus rhythm, right bundle branch block, and ST depressions in the inferior leads, meniscus consistent with old EKG dated 04/04/2019. There is low suspicion for thoracic aneurysm with his back pain improving with nitro and resolved. His lung exam is diminished, but is maintaining good oxygen saturation on his home O2. Discussed the case with cardiology, Dr. Quesada, who are in agreement with ACS treatment and workup including heparin. Repeat troponin pending at this time. Discussed the case with the Hospitalist, Dr. Miller, who is in agreement for admission of this patient. - Lab Data Lab Results 06/14/19 06/14/19 Range/Units 18:56 18:56 PT 10.9 (9.4-12.1) Seconds INR 1.0 APTT 32.0 (26.0-36.0) Seconds Troponin I 0.21 H* (< 0.04) ng/mL - EKG Data EKG attestation: Yes I reviewed and interpreted this EKG. EKG shows normal: sinus rhythm, axis [place]/QRS: RBBB ST segment depression in: II, III, aVF Interpretation: unchanged when compared to prior tracing (date) (04/04/2019) Heart Score - Score History: Moderately Suspicious EKG: Non Specific repolarisation Disturbance Age: Greater than 65 Risk Factors: Equal/Greater than 3 risk factor or history of atherosclerotic disease Troponin: Greater than 3x normal limit HEART Score Total: 8
[2019-06-14] MEDS ORDERED: *HR* Heparin 5,000 UNIT/ML VIAL IVP PRN (18:44)
[2019-06-14] MEDS ORDERED: *HR* Heparin 5,000 UNIT/ML VIAL IVP ONE (18:44)
--- NOTE | 2019-06-14 18:53 | Emergency Department Note ---
Disposition Clinical Impression: NSTEMI (non-ST elevated myocardial infarction) Disposition: Admitted As Inpatient Time of Disposition: 19:30 General Adult HPI - General Chief complaint: ED Chest Pain Stated complaint: Chest pain Time Seen by Provider: 06/14/19 18:13 Source: patient, EMS Mode of arrival: EMS Limitations: no limitations - History of Present Illness Pain Scale: 0 - Related Data Home Medications Medication Instructions Recorded Confirmed Albuterol Sulfate [Proventil 2 puff IH Q4HR PRN 02/16/17 06/14/19 Inhaler] Budesonide/Formoterol 160/4.5 2 puff IH BIDR PRN 02/16/17 06/14/19 [Symbicort 160/4.5] Furosemide [Lasix] 80 mg PO QPM 02/16/17 06/14/19 Furosemide [Lasix] 120 mg PO QAM 02/16/17 06/14/19 GlipiZIDE [Glucotrol] 5 mg PO BIDWM 02/16/17 06/14/19 HYDROcodone/Acet 5/325 mg [[place] 1 tab PO Q6H PRN 02/16/17 06/14/19 5-325 mg] Roflumilast [Daliresp] 500 mcg PO DAILY 02/16/17 06/14/19 Tiotropium [Spiriva] 2 puff IH DAILY 02/16/17 06/14/19 hydrOXYzine pamoate [Vistaril] 25 mg PO TID 02/16/17 06/14/19 Gabapentin [Neurontin] 400 mg PO TID 12/06/17 06/14/19 Allopurinol [Zyloprim 100 MG] 100 mg PO DAILY 04/04/19 06/14/19 Aspirin Enteric Coated [Aspirin EC] 325 mg PO DAILY 04/04/19 06/14/19 Atorvastatin [Lipitor] 80 mg PO HS 04/04/19 06/14/19 Memantine [Namenda] 10 mg PO BID 04/04/19 06/14/19 Pyridoxine (B-6) [Vitamin B-6] 50 mg PO DAILY 04/04/19 06/14/19 Tamsulosin HCl [Flomax] 0.4 mg PO HS 04/04/19 06/14/19 Cholecalciferol (D-3) [Vitamin D] 1,000 unit PO DAILY 06/14/19 06/14/19 Cyclobenzaprine [Flexeril] 10 mg PO TID PRN 06/14/19 06/14/19 Metformin HCl [Metformin HCl ER] 500 mg PO DAILY 06/14/19 06/14/19 Montelukast [Singulair] 10 mg PO DAILY 06/14/19 06/14/19 Naproxen [Naprosyn] 250 mg PO BID 06/14/19 06/14/19 Allergies Allergy/AdvReac Type Severity Reaction Status Date / Time Cyclobenzaprine AdvReac Hypotension Verified 02/16/17 14:57 [From Flexeril] oxycodone AdvReac Hypotension Verified 04/04/19 23:43 Past Medical History - Past Medical History Medical history: Reports: COPD, coronary artery disease, CVA, diabetes, GERD, hyperlipidemia, hypertension, myocardial infarction, renal disease, other Surgical history: Reports: carotid endarterectomy Psychiatric history: Reports: anxiety, depression - Social History Smoking Status: Former smoker Smokeless Tobacco Status: No Alcohol use: Reports: none Drug use: Reports: none Physical Exam - General Limitations: no limitations General appearance: alert, in no apparent distress Course Vital Signs Temperature 97.1 F L 06/14/19 18:11 Pulse Rate 85 06/14/19 18:11 Respiratory Rate 18 06/14/19 18:11 Blood Pressure 140/81 06/14/19 18:11 O2 Sat by Pulse Oximetry 99 06/14/19 18:11 Temperature 97.1 F L 06/14/19 18:11 Pulse Rate 79 06/14/19 19:35 Respiratory Rate 18 06/14/19 20:06 Blood Pressure 128/75 06/14/19 19:35 O2 Sat by Pulse Oximetry 100 06/14/19 20:06 Oxygen Delivery Oxygen Delivery Nasal Cannula Medical Decision Making - Lab Data Lab Results 06/14/19 06/14/19 Range/Units 18:56 18:56 PT 10.9 (9.4-12.1) Seconds INR 1.0 APTT 32.0 (26.0-36.0) Seconds Troponin I 0.21 H* (< 0.04) ng/mL Attestation Statement - Attestation Attestation: I saw and evaluated the patient and and reviewed the resident's note/PA note/STEEL RULE DIE MAKER note, and I agree with the findings and plan. I personally supervised and was present for the contreras/critical portions of any procedures. The medical decision- making was reviewed with the SECURITY ROVER/PA/Advanced Practice Nurse/Resident Physician. I agree with the documented findings, disposition and treatment plan as described except to the extent set forth below. I did see the patient is spoke with them and spoke with the paramedics and [facility] and the patient did have some radiation to the back but this was not sudden onset, no ripping tearing, I do not think this is related to aortic dissection and is most consistent with anginal pain. The patient will be admitted and we did discuss the case with Dr. Quesada the fishing rod marker who recommends heparin and this will be ordered and the patient will be admitted to the hospitalist. 1852 I did review the patient's EKG showing normal sinus rhythm with a rate of 77 and this does show inferior ST depression and this was present on a previous EKG from April 04. Patient is admitted. 2039
[2019-06-14 19:16] LABS: Prothrombin Time 10.9 Seconds (9.4-12.1)
[2019-06-14] MEDS: Heparin 25,000 UNIT/250 ML D5W 25,000 UNIT/250 ML IV.SOLN IVC SCH (19:29)
[2019-06-14] MEDS ORDERED: *HR* Dextrose 50 % in Water (Syg) 50 ML SYRINGE IVP PRN (20:01)
[2019-06-14] MEDS ORDERED: Dextrose Gel 15 GM/37.5 ML TUBE PO PRN ×2 (20:01)
[2019-06-14] MEDS: Budesonide/Formoterol 160/4.5 1 PUFF INH IH SCH (20:05)
[2019-06-14] MEDS ORDERED: Ipratropium/Albuterol Neb 3 ML IH PRN (20:14)
--- NOTE | 2019-06-14 20:18 | Internal Med History&Physical ---
Date of Encounter: 06/14/19 Time of Encounter: 20:17 Internal Medicine - H&P: HPI Chief complaint: CP Admitted From: Home Plans for Post Hospital Care: Home History of present illness: Moses Boyle is a 73 year old with hypertension, diabetes, hyperlipidemia, COPD on continuous home oxygen, cerebrovascular disease that required TPA and left carotid thrombectomy and coronary artery disease with 1 stent who presents here on transfer from [facility] are [facility] to initially with complaints of chest pain. He states that yesterday around noon he started feeling a burning sensation in his epigastrium and sternal region that radiated to his left shoulder. He took one sublingual nitroglycerin and it ceased. It recurred again later that evening around 7 PM, taken another nitroglycerin and obtain relief. He then states he required a third nitroglycerin around midnight when the pain recurred. It continued to happen this afternoon at which time he called his physician stating that he had early taken 3 nitroglycerin tablets instructed him to go to the emergency room. At the [facility] he was found to have a troponin of 0.36 and promptly transferred over here. His EKG shows a right bundle branch block which is not new and he is currently pain-free. Repeat troponin here is 0.21. He has was started on heparin drip and is admitted for further care. Vitals: Reviewed General: Obese white man lying comfortably in bed in no acute distress. Skin: Warm and dry. HEENT: Moist mucous membranes. No conjunctivae pallor. Neck: No lymphadenopathy. No JVD. No carotid bruits. No palpable thyroid. Chest: Diminished thoracic expansion with slight expiratory wheezes noted bilaterally. Heart: Normal S1 & S2; rhythmic. No rubs or murmurs. Abdomen: Distended with an umbilical hernia present. Soft and nontender to palpation. Extremities: No clubbing, cyanosis or edema. No calf tenderness. Normal distal pulses. Neurological: Awake, alert and oriented to person, place and time. No focal deficits. Psych: Affect appropriate. Assessment/Plan 1. NSTEMI: As evidenced by the newly developing chest pains of increasing frequency that responds adequately to nitroglycerin and found to have an elevated serum troponin with a yet unischemic EKG. He has a known cardiac history, undergoing cardiac catheter in general 2018 where his severe 1 vessel CAD was noted with stenting to the mid RCA. We will keep him on heparin drip for now and provide nitroglycerin as needed for pain control. He will be nothing by mouth past midnight pending cardiology consultation in the event he may need an invasive approach. Monitor on telemetry and repeat EKGs as needed. Of note, he reports being taken off of dual antiplatelet therapy and placed on high dose aspirin instead. 2. COPD: The patient has since quit smoking but remains oxygen dependent. He is currently asymptomatic but I noted mild expiratory wheezes on examination. Will provide nebulizer therapy as needed and should continue his daily LABA/ICS & tiotropium. 3. DEMETRIO: Will order CPAP qhs. 4. Diabetes: Hold oral agents for now and place on insulin sliding scale. A1C noted at 8% 2 months ago. Past Med Surg Social Fam HX - Past Medical History Medical history: COPD, coronary artery disease, CVA, diabetes, GERD, hyperlipidemia, hypertension, myocardial infarction, renal disease, other Additional medical history: SEVER OBSTRUCTIVE SLEEP APNEA Psychiatric history: anxiety, depression - Past Surgical History Surgical History: carotid endarterectomy Additional surgical history: SHOULDER REPLACEMENT RIGHT X 2 , BACK SURGERY 1991, Thromboectomy to carotid 02/2019 - Social History Smoking Status: Former smoker Smokeless Tobacco Status: No Alcohol use: none Drug use: none Internal Medicine - H&P: Meds Albuterol Sulfate [Proventil Inhaler] 2 puff IH Q4HR PRN 02/16/17 [History] Budesonide/Formoterol 160/4.5 [Symbicort 160/4.5] 2 puff IH BIDR PRN 02/16/17 [History] Furosemide [Lasix] 80 mg PO QPM 02/16/17 [History] Furosemide [Lasix] 120 mg PO QAM 02/16/17 [History] GlipiZIDE [Glucotrol] 5 mg PO BIDWM 02/16/17 [History] HYDROcodone/Acet 5/325 mg [[place] 5-325 mg] 1 tab PO Q6H PRN 02/16/17 [History] Roflumilast [Daliresp] 500 mcg PO DAILY 02/16/17 [History] Tiotropium [Spiriva] 2 puff IH DAILY 02/16/17 [History] hydrOXYzine pamoate [Vistaril] 25 mg PO TID 02/16/17 [History] Gabapentin [Neurontin] 400 mg PO TID 12/06/17 [History] Allopurinol [Zyloprim 100 MG] 100 mg PO DAILY 04/04/19 [History] Aspirin Enteric Coated [Aspirin EC] 325 mg PO DAILY 04/04/19 [History] Atorvastatin [Lipitor] 80 mg PO HS 04/04/19 [History] Memantine [Namenda] 10 mg PO BID 04/04/19 [History] Pyridoxine (B-6) [Vitamin B-6] 50 mg PO DAILY 04/04/19 [History] Tamsulosin HCl [Flomax] 0.4 mg PO HS 04/04/19 [History] Cholecalciferol (D-3) [Vitamin D] 1,000 unit PO DAILY 06/14/19 [History] Cyclobenzaprine [Flexeril] 10 mg PO TID PRN 06/14/19 [History] Metformin HCl [Metformin HCl ER] 500 mg PO DAILY 06/14/19 [History] Montelukast [Singulair] 10 mg PO DAILY 06/14/19 [History] Naproxen [Naprosyn] 250 mg PO BID 06/14/19 [History] Allergy/AdvReac Type Severity Reaction Status Date / Time Cyclobenzaprine AdvReac Hypotension Verified 02/16/17 14:57 [From Flexeril] oxycodone AdvReac Hypotension Verified 04/04/19 23:43 All Systems PM: A 10-system review of systems was performed and is negative for pertinent findings except as documented above in the HPI. Family history reviewed and found non-contributory. - Constitutional Vitals: Temp Pulse Resp BP Pulse Ox 97.1 F L 79 18 128/75 100 06/14/19 18:11 06/14/19 19:35 06/14/19 20:06 06/14/19 19:35 06/14/19 20:06 Exam: . Internal Med - H&P Results - Labs Labs: Cardiac Enzymes 06/14/19 Range/Units 18:56 Troponin I 0.21 H* (< 0.04) ng/mL - Impressions ITS Impressions Chest X-Ray 06/14/19 18:44 IMPRESSION: No acute abnormality identified. D/ / Dean Vallecillo MD / Dean Vallecillo MD Interpreting Provider: Dean Vallecillo MD - Time Spent With Patient Total time spent is greater than 50% in coordination of care (as documented) at patient's floor/unit and/or counseling patient:
[2019-06-14] MEDS: hydrOXYzine pamoate 25 MG CAPSULE PO SCH (21:19)
[2019-06-14] MEDS: Gabapentin 400 MG CAPSULE PO SCH (21:19)
[2019-06-15] MEDS: Insulin LISPRO 300 UNITS/3 ML VIAL SQ SCH ×4 (00:01→17:12)
[2019-06-15] MEDS ORDERED: Nitroglycerin 0.4 MG TAB.SUBL SL PRN (00:11)
[2019-06-15 02:07] LABS: Basophils % 0.2 %; Eosinophils # 0.1 K/mcL (0.0-0.6); Eosinophils % 0.5 %; Hematocrit 37.7 % (37.5-50.1); Hemoglobin 11.9 g/dL (12.9-16.9); Immature Granulocytes % 0.4 % (0-4); Lymphocytes # 2.2 K/mcL (0.6-4.6); Lymphocytes % 14.4 %; Mean Corpuscular HGB Conc 31.6 g/dL (31.6-35.5); Mean Corpuscular Hemoglobin 30.4 pg (28.0-33.3); Mean Corpuscular Volume 96.2 fL (83.0-100.0); Mean Platelet Volume 12.3 fL (9.4-12.4); Monocytes # 0.8 K/mcL (0.0-1.3); Monocytes % 5.3 %; Platelet Count 267 K/mcL (140-400); Red Blood Count 3.92 M/mcL (4.19-5.50); Red Cell Distribution Width 14.6 % (11.5-14.5); Segmented Neutrophils % 79.2 %; White Blood Count 15.2 K/mcL (4.3-11.1)
[2019-06-15 02:19] LABS: Alanine Aminotransferase 16 Units/L (7-52); Albumin 3.7 g/dL (3.5-5.7); Albumin/Globulin Ratio 1.2 (1.1-2.2); Alkaline Phosphatase 76 Units/L (34-104); Aspartate Amino Transferase 15 Units/L (13-39); BUN/Creatinine Ratio 22 (6-26); Bilirubin,Direct 0.1 mg/dL (0.0-0.2); Bilirubin,Indirect 0.1 mg/dL (0.0-1.2); Bilirubin,Total 0.2 mg/dL (0.3-1.0); Blood Urea Nitrogen 25 mg/dL (8-23); Calcium 9.1 mg/dL (8.6-10.3); Carbon Dioxide 29 mEq/L (23-29); Chloride 102 mEq/L (98-107); Globulin 3.1 g/dL (2.4-3.5); Glucose 216 mg/dL (70-105); Magnesium 2.5 mg/dL (1.6-2.6); Osmolality,Calculated 301 (280-300); Potassium 3.8 mEq/L (3.5-5.1); Sodium 140 mEq/L (136-145); Total Protein 6.8 g/dL (6.4-8.9); eGFR For African Americans > 60 (> 60); eGFR For Non-African Americans > 60 (> 60)
[2019-06-15 02:28] LABS: Troponin I 0.17 ng/mL (< 0.04)
[2019-06-15] MEDS: *HR* Heparin 5,000 UNIT/ML VIAL IVP PRN ×2 (02:28→22:41)
--- NOTE | 2019-06-15 09:20 | Cardiology Consult Note ---
Date of Encounter: 06/15/19 Time of Encounter: 09:17 Assessment and Plan (1) NSTEMI (non-ST elevated myocardial infarction) Current Visit: Yes Status: Acute Patient's symptoms are consistent with angina. Substernal chest discomfort, which improves with nitroglycerin. Mild troponin elevation noted at [facility], decreasing since that time. Peak troponin unclear and may have occurred prior to admission. Patient had intermittent symptoms for at least 24 hours before seeking medical care. LVEF preserved, EF 60-65% on TTE yesterday. Recommend continue aspirin, statin, and heparin drip. Will start BB. We discussed options, including cardiac catheterization. We reviewed the risks, benefits, and alternatives. Patient is agreeable and wishes to proceed. Will hold DAPT until time of C later on this morning. Further recommendations to follow. Discussion w patient/family: The assessment and plan as outlined above was discussed with the patient and/or family members who expressed understanding and agreement. All questions were answered. Thank you for involving us in the care of your patient. Please call with any questions. History of Present Illness Consult date: 06/15/19 Requesting physician: Figueroa Sherman Consult reason: Chest pain, NSTEMI Chief complaint: Chest pain History of present illness: Mr. Boyle is a 73 year old male with a history of CAD, previous PCI to the RCA in 2018. Unfortunately, patient reports poor cardiology follow-up since that time. Comorbidities include supplemental oxygen-dependent COPD, previous CVA, status post carotid endarterectomy earlier this year at [facility], HTN, and DEMETRIO. 2 days ago, he describes a sudden onset of substernal chest discomfort. Describes as a pressure sensation without radiation, nausea, vomiting. Symptoms lasted for several minutes, but improved after he took a nitroglycerin. This happened on 2 additional occasions on . Patient reports continued symptoms on Monday, again improved with nitroglycerin, went to the ER. Since he has been on ACS medical therapy, his symptoms have improved. Troponin at ID 0.3. Decreasing since then at [place]. Peak troponin may have occurred prior to hospitalization. TTE last evening demonstrated an LVEF of 60-65%. Previous testing: [facility] 10/2017: Left main 30%. LAD proximal 30%. Circumflex proximal 60%. RCA mid 90% in-stent restenosis, BEL placed. Past Med Surg Social Fam HX - Past Medical History Medical history: COPD, coronary artery disease, CVA, diabetes, GERD, hyperlipidemia, hypertension, myocardial infarction, renal disease, other Additional medical history: SEVER OBSTRUCTIVE SLEEP APNEA Psychiatric history: anxiety, depression - Past Surgical History Surgical History: carotid endarterectomy Additional surgical history: SHOULDER REPLACEMENT RIGHT X 2 , BACK SURGERY 1991, Thromboectomy to carotid 02/2019 - Social History Smoking Status: Former smoker Smokeless Tobacco Status: No Alcohol use: none Drug use: none Medications and Allergies Albuterol Sulfate [Proventil Inhaler] 2 puff IH Q4HR PRN 02/16/17 [History] Budesonide/Formoterol 160/4.5 [Symbicort 160/4.5] 2 puff IH BIDR PRN 02/16/17 [History] Furosemide [Lasix] 80 mg PO QPM 02/16/17 [History] Furosemide [Lasix] 120 mg PO QAM 02/16/17 [History] GlipiZIDE [Glucotrol] 5 mg PO BIDWM 02/16/17 [History] HYDROcodone/Acet 5/325 mg [[place] 5-325 mg] 1 tab PO Q6H PRN 02/16/17 [History] Roflumilast [Daliresp] 500 mcg PO DAILY 02/16/17 [History] Tiotropium [Spiriva] 2 puff IH DAILY 02/16/17 [History] hydrOXYzine pamoate [Vistaril] 25 mg PO TID 02/16/17 [History] Gabapentin [Neurontin] 400 mg PO TID 12/06/17 [History] Allopurinol [Zyloprim 100 MG] 100 mg PO DAILY 04/04/19 [History] Aspirin Enteric Coated [Aspirin EC] 325 mg PO DAILY 04/04/19 [History] Atorvastatin [Lipitor] 80 mg PO HS 04/04/19 [History] Memantine [Namenda] 10 mg PO BID 04/04/19 [History] Pyridoxine (B-6) [Vitamin B-6] 50 mg PO DAILY 04/04/19 [History] Tamsulosin HCl [Flomax] 0.4 mg PO HS 04/04/19 [History] Cholecalciferol (D-3) [Vitamin D] 1,000 unit PO DAILY 06/14/19 [History] Cyclobenzaprine [Flexeril] 10 mg PO TID PRN 06/14/19 [History] Metformin HCl [Metformin HCl ER] 500 mg PO DAILY 06/14/19 [History] Montelukast [Singulair] 10 mg PO DAILY 06/14/19 [History] Naproxen [Naprosyn] 250 mg PO BID 06/14/19 [History] Allergy/AdvReac Type Severity Reaction Status Date / Time Cyclobenzaprine AdvReac Hypotension Verified 02/16/17 14:57 [From Flexeril] oxycodone AdvReac Hypotension Verified 04/04/19 23:43 All Systems Review: The remainder of the systems were reviewed and are negative - Cardiovascular Cardiovascular: as per HPI, chest pain at rest Physical Examination Vital Signs, Last 4 Hours Temp Pulse Resp BP Pulse Ox 06/15/19 08:07 97.5 F L 73 18 122/71 94 General: Conversant, No Apparent Distress HEENT: Atraumatic, Normocephaly, Mucus Membranes Moist Neck: No JVD, Normal carotid pulses Cardiac: Reg Rate and Rhythm, Normal S1 and S2, No Murmur Lungs: Normal Breath Sounds, No Wheeze, Rales, Rhonchi Neuro: Alert and responsive, No focal deficits noted Abdomen: Soft, Non-Tender Skin: No rashes noted on visualized skin Musculoskeletal: No Chest Wall Tenderness Extremities: No Clubbing, No Cyanosis, No Edema Results 06/15/19 01:37 06/15/19 01:37 Lab Results 06/14/19 06/14/19 06/15/19 18:56 18:56 01:37 WBC 15.2 H Hgb 11.9 L Hct 37.7 Plt Count 267 INR 1.0 APTT 32.0 Sodium Potassium Chloride Carbon Dioxide BUN Creatinine Glucose Calcium Magnesium Total Bilirubin AST ALT Alkaline Phosphatase Troponin I 0.21 H* 06/15/19 06/15/19 01:37 06:05 WBC Hgb Hct Plt Count INR APTT Sodium 140 Potassium 3.8 Chloride 102 Carbon Dioxide 29 BUN 25 H Creatinine 1.13 Glucose 216 H Calcium 9.1 Magnesium 2.5 Total Bilirubin 0.2 L AST 15 ALT 16 Alkaline Phosphatase 76 Troponin I 0.17 H* 0.16 H* - Imaging and Cardiology Chest Xray: report reviewed Echo: report reviewed Cardiac cath: report reviewed - EKG Interpretation EKG results cardiology: personally reviewed (Sinus rhythm, right bundle branch block, inferior ST and T-wave changes similar to previous.) Consult Discharge Plan - Plan [facility]: [facility] [Primary Care Provider] -
--- NOTE | 2019-06-15 09:31 | Cardiology Consult Note ---
Date of Encounter: 06/15/19 Time of Encounter: 07:45 Assessment and Plan Discussion w patient/family: The assessment and plan as outlined above was discussed with the patient and/or family members who expressed understanding and agreement. All questions were answered. Thank you for involving us in the care of your patient. Please call with any questions. History of Present Illness Consult date: 06/14/19 Requesting physician: Nino Anne Consult reason: elevated troponin Chief complaint: chest pain History of present illness: Mr. Boyle is a 73 year old male with a relevant past medical history of Past Med Surg Social Fam HX - Past Medical History Medical history: COPD, coronary artery disease, CVA, diabetes, GERD, hyperlipidemia, hypertension, myocardial infarction, renal disease, other Additional medical history: SEVER OBSTRUCTIVE SLEEP APNEA Psychiatric history: anxiety, depression - Past Surgical History Surgical History: carotid endarterectomy Additional surgical history: SHOULDER REPLACEMENT RIGHT X 2 , BACK SURGERY 1991, Thromboectomy to carotid 02/2019 - Social History Smoking Status: Former smoker Smokeless Tobacco Status: No Alcohol use: none Drug use: none Medications and Allergies Albuterol Sulfate [Proventil Inhaler] 2 puff IH Q4HR PRN 02/16/17 [History] Budesonide/Formoterol 160/4.5 [Symbicort 160/4.5] 2 puff IH BIDR PRN 02/16/17 [History] Furosemide [Lasix] 80 mg PO QPM 02/16/17 [History] Furosemide [Lasix] 120 mg PO QAM 02/16/17 [History] GlipiZIDE [Glucotrol] 5 mg PO BIDWM 02/16/17 [History] HYDROcodone/Acet 5/325 mg [[place] 5-325 mg] 1 tab PO Q6H PRN 02/16/17 [History] Roflumilast [Daliresp] 500 mcg PO DAILY 02/16/17 [History] Tiotropium [Spiriva] 2 puff IH DAILY 02/16/17 [History] hydrOXYzine pamoate [Vistaril] 25 mg PO TID 02/16/17 [History] Gabapentin [Neurontin] 400 mg PO TID 12/06/17 [History] Allopurinol [Zyloprim 100 MG] 100 mg PO DAILY 04/04/19 [History] Aspirin Enteric Coated [Aspirin EC] 325 mg PO DAILY 04/04/19 [History] Atorvastatin [Lipitor] 80 mg PO HS 04/04/19 [History] Memantine [Namenda] 10 mg PO BID 04/04/19 [History] Pyridoxine (B-6) [Vitamin B-6] 50 mg PO DAILY 04/04/19 [History] Tamsulosin HCl [Flomax] 0.4 mg PO HS 04/04/19 [History] Cholecalciferol (D-3) [Vitamin D] 1,000 unit PO DAILY 06/14/19 [History] Cyclobenzaprine [Flexeril] 10 mg PO TID PRN 06/14/19 [History] Metformin HCl [Metformin HCl ER] 500 mg PO DAILY 06/14/19 [History] Montelukast [Singulair] 10 mg PO DAILY 06/14/19 [History] Naproxen [Naprosyn] 250 mg PO BID 06/14/19 [History] Allergy/AdvReac Type Severity Reaction Status Date / Time Cyclobenzaprine AdvReac Hypotension Verified 02/16/17 14:57 [From Flexeril] oxycodone AdvReac Hypotension Verified 04/04/19 23:43 All Systems Review: The remainder of the systems were reviewed and are negative Physical Examination Vital Signs, Last 4 Hours Temp Pulse Resp BP Pulse Ox 06/15/19 08:07 97.5 F L 73 18 122/71 94 Results 06/15/19 01:37 06/15/19 01:37 Lab Results 06/14/19 06/14/19 06/15/19 18:56 18:56 01:37 WBC 15.2 H Hgb 11.9 L Hct 37.7 Plt Count 267 INR 1.0 APTT 32.0 Sodium Potassium Chloride Carbon Dioxide BUN Creatinine Glucose Calcium Magnesium Total Bilirubin AST ALT Alkaline Phosphatase Troponin I 0.21 H* 06/15/19 06/15/19 01:37 06:05 WBC Hgb Hct Plt Count INR APTT Sodium 140 Potassium 3.8 Chloride 102 Carbon Dioxide 29 BUN 25 H Creatinine 1.13 Glucose 216 H Calcium 9.1 Magnesium 2.5 Total Bilirubin 0.2 L AST 15 ALT 16 Alkaline Phosphatase 76 Troponin I 0.17 H* 0.16 H* Consult Discharge Plan - Plan [facility]errals: [facility] [Primary Care Provider] -
[2019-06-15] MEDS: Aspirin Enteric Coated 325 MG Tablet PO SCH (09:39)
[2019-06-15] MEDS: Gabapentin 400 MG CAPSULE PO SCH ×3 (09:39→21:31)
[2019-06-15] MEDS: Furosemide 40 MG TABLET PO SCH ×2 (09:39→17:10)
[2019-06-15] MEDS: Pyridoxine (B-6) 50 MG TABLET PO SCH (09:39)
[2019-06-15] MEDS: *HR* HYDROcodone/Acet 5/325 mg TABLET PO PRN (09:40)
[2019-06-15] MEDS: Cholecalciferol (D-3) 1,000 UNIT (25MCG) TABLET PO SCH (09:40)
[2019-06-15] MEDS: DALIRESP 500 MCG PO SCH (09:40)
[2019-06-15] MEDS: hydrOXYzine pamoate 25 MG CAPSULE PO SCH ×3 (09:40→21:31)
--- NOTE | 2019-06-15 10:10 | Pre-Sedation Evaluation ---
Pre-sedation evaluation - Pre-sedation checklist Date of procedure: 06/15/19 Procedure: [facility] Recent Vitals: Last Vital Signs Temp 97.5 F L 06/15/19 08:07 Pulse 73 06/15/19 08:07 Resp 18 06/15/19 08:07 BP 122/71 06/15/19 08:07 Pulse Ox 94 06/15/19 08:07 H&P (including ROS) documented in medical record: Yes Previous reaction to sedatives/anesthetics: Yes; explain in comment Dietary Status: NPO after Midnight Dentition: No loose teeth or bridges ASA Classification *see protocol: CLASS II-Mild systemic disease Plan of Care: Pt appropriate candidate for procedure/moderate/conscious sedation, Risks/benefits of procedure/sedation discussed w/ patient/family Cardiac Registry (Cardio Only) - Functional Capacity Functional Capacity: >=4 METS with symptoms - Clincal Frailty Scale Clinical Frailty Scale: Managing Well
[2019-06-15] MEDS: Budesonide/Formoterol 160/4.5 1 PUFF INH IH SCH ×2 (10:40→19:41)
[2019-06-15] MEDS: Tiotropium 18 MCG inhalation IH SCH (10:41)
[2019-06-15] MEDS: Metoprolol XL (24 HR) Succ 25 MG TAB.ER.24H PO SCH (10:48)
[2019-06-15] MEDS ORDERED: Heparin 1,000 UNITS/500 mL 500 ML ONE (10:49)
[2019-06-15] MEDS ORDERED: 0.9 % Sodium Chloride 1,000 ML ONE (10:49)
[2019-06-15] MEDS ORDERED: *HR* Heparin 10,000 UNIT/10 ML VIAL ONE (10:49)
[2019-06-15] MEDS ORDERED: Iopamidol 125 ML INFUS..BTL ONE (10:49)
[2019-06-15] MEDS ORDERED: Nitroglycerin 1,000 MCG/10 ML VIAL IV ONE (10:49)
[2019-06-15] MEDS ORDERED: *HR* Midazolam HCl 2 MG/2 ML VIAL ONE ×2 (11:13→11:40)
[2019-06-15] MEDS ORDERED: *HR* FentaNYL (PF) 100 MCG/2 ML VIAL ONE (11:13)
[2019-06-15] MEDS ORDERED: Verapamil 5 MG/2 ML VIAL ONE (11:19)
[2019-06-15] MEDS ORDERED: Protamine Sulfate 50 MG/5 ML VIAL IVP ONE (12:05)
--- NOTE | 2019-06-15 12:27 | Invasive Diagnostic Lab Proc ---
Name: Moses Boyle Date of Study: 06/15/2019 Date: 1945 Ht: 68.9in Medical Record#: [id number] Age: 73 Wt: 223.33lb Gender: Male BSA: 2.16 Order #: [id number] BMI: 33.08 Physicians Procedure Physician: David Corbett MD, [facility] Referring MD: Referring MD: Staff Name Position Time In Marlen Werner RT (R) Monitor 11:14 AM Tl Agustin RN Poultry Husbandry Teacher 11:14 AM Liza Lewis RT (R) Scrub 11:14 AM Procedures Performed Procedure CORONARY ARTERY ANGIO S&I AORTOGRAPHY, ABDOMINAL S&I Pre-Procedure Checklist Informed consent is complete signed and on chart. H&P is on chart. ID band is on and ID verified with patient. Patient NPO for procedure The procedure was described for the patient and questions were answered. Blood Pressure: 143/76 ECG is on chart. Rhythm: NSR Plan of Care Patient will tolerate the procedure without complications. Adequate level of comfort will be maintained. Hemodynamics will remain stable Patient will recover from procedure without complications. Respiratory function will be maintained. Cardiac rhythm will remain stable. Patient temperature will be maintained. Patient and/or family have verbalized understanding of the procedure. Patient Education Chief Complaint/Reason for Test: Cardiac Cath Developmental Category: Geriatric (65+ years) Developmentally Appropriate for Age: Yes Learning Barriers: None Education Needs: Procedure Education Method: Verbal Information Taught: Cardiac Cath Educational Evaluation: Able to repeat information Intravenous Access Time IV Size Location DC'd Fluid/Drip Rate Units RN 10:53 AM 20g 1 /" Patent On Arrival Rt Antecubital 0.9NaCl 25 ml/hr Tl Agustin RN Allergies Cyclobenzaprine oxycodone gabapentin Vital Signs Time BP (mmHg) HR (bpm) O2 Sat. RR (bpm) LOC 11:15 AM / % 5 = Fully awake and oriented or at pre-proc level 11:28 AM / % 4 = Oriented but drowsy 11:28 AM / % 4 = Oriented but drowsy 11:43 AM / % 4 = Oriented but drowsy 11:58 AM / % 4 = Oriented but drowsy 11:21 AM 143 / 76 70 100 % 16 11:26 AM 140 / 82 83 99 % 16 11:31 AM 136 / 70 70 93 % 19 11:36 AM 127 / 66 80 97 % 16 11:41 AM 121 / 66 83 93 % 16 11:46 AM 117 / 68 80 91 % 13 11:51 AM 118 / 71 84 93 % 18 11:56 AM 119 / 67 78 94 % 16 12:01 PM 120 / 66 80 97 % 16 12:06 PM 133 / 71 76 96 % 15 12:11 PM 127 / 72 77 96 % 16 Procedural Medications Time Medication Dose Units Method Given By 11:14 AM Oxygen 3 L/min nasal cannula Tl Agustin RN 11:23 AM Versed 2 mg Intravenous Tl Agustin RN 11:23 AM Fentanyl 50 mcg Intravenous Tl Agustin RN 11:32 AM Lidocaine 2% 0.5 ml Subcutaneous David Corbett MD, FACC 11:37 AM Lidocaine 2% 10 ml Subcutaneous David Corbett MD, FACC 11:38 AM Versed 1 mg Intravenous Tl Agustin RN 11:38 AM Fentanyl 25 mcg Intravenous Tl Agustin RN 11:46 AM Nitroglycerin 150 mcg Intracoronary David Corbett MD ASA Classification: CLASS II- Mild systemic disease (i.e. well-controlled diabetes, hypertension, asthma, cigarette smoking) Romaine Score Preprocedure Postprocedure Activity 2- Moves 4 extremities sustained head lift Activity 2- Moves 4 extremities sustained head lift Circulation 2- SBP +/= 20 points of pre-anesthetic level Circulation 2- SBP +/= 20 points of pre-anesthetic level Consciousness 2- Awake and alert oriented x 3 Consciousness 2- Awake and alert oriented x 3 O2 Saturation 2- Able to maintain O2 satruation of 92% on room air O2 Saturation 2- Able to maintain O2 satruation of 92% on room air Respiratory 2- Able to deep breathe and cough well Respiratory 2- Able to deep breathe and cough well Total Score 10 Total Score 10 Contrast Agent: Isovue Diagnostic Contrast: 76 ml Total Contrast: 76 ml Fluoro Dose: 177 mGy Procedure Log Time Note Enter By 11:14 AM Pt arrived to rd lab technician 2 at 11:14 twilson 11:14 AM Physician arrived 11:14 twilson 11:14 AM Meet and greet completed twilson 11:14 AM Sign in performed according to hospital policy. Informed consent was obtained. twilson 11:14 AM Marlen Werner RT (R) Position: Monitor Time in: 11:14 twilson 11:14 AM Tl Agustin RN Position: Poultry Husbandry Teacher Time in: :14 twilson 11:14 AM Liza Lewis RT (R) Position: Scrub Time in: : twilson 11:14 AM Patient charges- Angio tray pack, Navilyst 3mm J, Pulse Oximetry and ACIST tubing and transducer twilson 11:14 AM Case Delayed no twilson 11:15 AM Time: 11:14 Oxygen on at 3 L/min per nasal cannula by Tl Agustin RN twilson 11:15 AM Time: :15 Patient comfortable and pain free: Yes twilson 11:15 AM Time: :15LOC: 5 = Fully awake and oriented or at pre-proc level twilson 11:20 AM Vitals capture started with the following parameters, Patient=Adult, Interval=5 min, Initial Kmfsvyrj=863 mmHg, Deflation Rate=3 mmHg, Cuff placed on Right Arm 11: AM CathStat 11: AM Recorded ECG: HR=86 Condition=Condition 1 11:21 AM HR=70 bpm, MFQH=699/76 mmhg, MjW6=462.0 %, Resp=16 B/min 11: AM Procedure start : twilson 11: AM Hair removed from procedure site in procedure lab using clippers. Bilateral groin prepped with Chloraprep by Marlen Werner RT (R), then patient was draped. Skin intact. twilson 11: AM Time: : Versed 2 mg Intravenous Given by Tl Agustin RN twilson 11: AM Time: : Fentanyl 50 mcg Intravenous Given by Tl Agustin RN twilson 11: AM Pressure channel 1 zeroed. 11: AM HR=83 bpm, TAAC=101/82 mmhg, SpO2=99.0 %, Resp=16 B/min 11: AM Time: : Patient comfortable and pain free: Yes twilson : AM Time: :LOC: 4 = Oriented but drowsy twilson : AM HR=70 bpm, KKHO=825/70 mmhg, SpO2=93.0 %, Resp=19 B/min 11: AM Time out was performed according to hospital policy. Conscious sedation and anesthesia was achieved (see medication log with in this report above) twilson 11: AM Time: : 0.5 ml Lidocaine 2% to right radial Subcutaneous Given by David Corbett MD, [facility] twilson 11:34 AM ASA Class CLASS II- Mild systemic disease (i.e. well-controlled diabetes, hypertension, asthma, cigarette smoking) twilson 11:36 AM HR=80 bpm, KPFA=418/66 mmhg, SpO2=97.0 %, Resp=16 B/min 11:36 AM Unable to access radial. Preparing for femoral access. twilson 11:37 AM Time: 11:37 10 ml Lidocaine 2% to right groin Subcutaneous Given by David Corbett MD, [facility] twilson 11:38 AM Time: 11:38 Versed 1 mg Intravenous Given by Tl Agustin RN twilson 11:38 AM Time: 11:38 Fentanyl 25 mcg Intravenous Given by Tl Agustin RN twilson 11:39 AM Micro-Introducer Kit utilized for sheath placement twilson 11:41 AM HR=83 bpm, EVZX=151/66 mmhg, SpO2=93.0 %, Resp=16 B/min 11:42 AM Access obtained by percutaneous puncture. 6Fr 10cm Terumo [place] sheath placed in right Femoral artery. [id number] twilson 11:42 AM 5Fr FL 4 catheter inserted over the wire [facility] twilson 11:43 AM Time: 11:28 Patient comfortable and pain free: Yes twilson 11:43 AM Time: 11:28LOC: 4 = Oriented but drowsy twilson 11:43 AM Wire removed, intact. twilson 11:44 AM LCA angiography performed in multiple views. twilson 11:44 AM Recorded Pressure: Ao, HR=74, Condition=Condition 1 (Aorta) Ao 100/60/78 11:45 AM Recorded Pressure: Ao, HR=73, Condition=Condition 1 (Aorta) Ao 103/59/79 11:46 AM HR=80 bpm, NOCH=067/68 mmhg, SpO2=91.0 %, Resp=13 B/min 11:46 AM Time: 11:46 Nitroglycerin 150 mcg Intracoronary Given by David Corbett MD twilson 11:47 AM Lesion found in Proximal LMCA. Pre Stenosis: 30 Pre TERESITA Flow: twilson 11:47 AM Lesion found in Distal LMCA. Pre Stenosis: 50 Pre TERESITA Flow: twilson 11:47 AM Lesion found in Proximal LAD. Pre Stenosis: 60 Pre TERESITA Flow: twilson 11:47 AM Lesion found in Proximal Circumflex. Pre Stenosis: 80 Pre TERESITA Flow: twilson 11:47 AM Lesion found in 1st Marginal. Pre Stenosis: 80 Pre TERESITA Flow: twilson 11:47 AM Left Main Coronary Artery with 50% stenosis twilson 11:48 AM Proximal Left Anterior Descending Coronary Artery with 60% stenosis. If graft is supplying this territory, 0 % stenosis. twilson 11:48 AM Circumflex, Obtuse Marginal, Left Posterior Descending, and Left Posterolateral Coronary Arteries with 80 % stenosis. If graft is supplying this area, 0 % stenosis twilson 11:48 AM Wire reinserted. twilson 11:49 AM Catheter removed twilson 11:49 AM Recorded Pressure: Ao, HR=87, Condition=Condition 1 (Aorta) Ao 78/55/66 11:49 AM 5Fr FR 4 catheter inserted over the wire DN twilson 11:49 AM Wire removed, intact. twilson 11:49 AM RCA angiography performed in multiple views. twilson 11:50 AM Wire reinserted. twilson 11:50 AM Catheter removed twilson 11:50 AM 5Fr Pigtail catheter inserted over the wire DN twilson 11:51 AM Lesion found in Proximal RCA. Pre Stenosis: 75 Pre TERESITA Flow: twilson 11:51 AM Coronary Dominance: right twilson 11:51 AM Right Coronary, Right Posterior Descending Arteries with Right Posterolateral and Acute Marginal branches with 99 % stenosis. If graft is supplying this area, 0 % stenosis twilson 11:51 AM HR=84 bpm, EQMA=555/71 mmhg, SpO2=93.0 %, Resp=18 B/min 11:52 AM Catheter removed, intact. twilson 11:52 AM 6Fr Pigtail catheter inserted over the wire DN twilson 11:52 AM Catheter crossed the aortic valve and was selectively placed in the left ventricle. Pressures recorded on pullback for left heart catheterization. twilson 11:52 AM Wire removed twilson 11:53 AM Lesion found in PLB. Pre Stenosis: 99 Pre TERESITA Flow: twilson 11:56 AM HR=78 bpm, WKBK=969/67 mmhg, SpO2=94.0 %, Resp=16 B/min 11:56 AM Bolus angiogram of Abdominal aorta complete: 15 ml/sec for a total of 30 mls twilson 11:58 AM Time: 11:43 Patient comfortable and pain free: Yes twilson 11:58 AM Time: 11:43LOC: 4 = Oriented but drowsy twilson 11:59 AM Wire resinserted. twilson 11:59 AM Wire and catheter removed. twilson 12:01 PM HR=80 bpm, CKXX=652/66 mmhg, SpO2=97.0 %, Resp=16 B/min 12:01 PM Procedure completed at 12:01 06/15/2019 twilson 12:01 PM Did you address TERESITA flow and Dominance? YesCoronary Dominance: right twilson 12:01 PM Isovue 370 - 125ml,2 Bottle(s) used. twilson 12:01 PM Arterial sheath pulled using manual compression and V+ Pad for 20 minutes by Liza Lewis RT (R) twilson 12:03 PM Sign out completed: Radiation Dose 34.1 mGy, 176.74 Gy/cm2 Fluoro Time: 4.2 Isovue 370 - 200ml contrast 76 ml given by David Corbett MD, FACC. Complications: None. The patient was discharged out of the physical laboratory assistant in stable condition. Sedation minutes 40. Cardiac Rehab Consult needed: Yes. Confirmed administered medications: Yes twilson 12:03 PM Estimated Blood Loss: less than 20cc twilson 12:03 PM Post ECG NSR twilson 12:03 PM Cardiothoracic surgeon consulted by physician twilson 12:03 PM Post Blood Pressure 120/33 twilson 12:03 PM 12:03 Post Pulses Bilateral DP 2+ twilson 12:03 PM 12:03 Post Pulses Bilateral PT 1+ twilson 12:03 PM Information taught Cardiac Cath twilson 12:03 PM Education needs Procedure, Plan of Care, and Responsibilities of Patient in Care twilson 12:04 PM Learning barriers :None twilson 12:04 PM Education Methods Verbal twilson 12:04 PM Education evaluation Able to repeat information twilson 12:04 PM No family present at this time. twilson 12:06 PM HR=76 bpm, FDXZ=193/71 mmhg, SpO2=96.0 %, Resp=15 B/min 12:11 PM HR=77 bpm, QWGL=064/72 mmhg, SpO2=96.0 %, Resp=16 B/min 12:13 PM Time: 11:58 Patient comfortable and pain free: Yes twilson 12:13 PM Time: 11:58LOC: 4 = Oriented but drowsy twilson 12:15 PM Report given to Tl RICHEY Pt taken to 2A Room #35. 12:14 twilson 12:17 PM Site status No bleeding/ No Hematoma - Rt Groin as reported by Liza Lewis RT (R) at 12:17 twilson 12:17 PM Opsite applied twilson 12:17 PM Patient out of room: 12:17 twilson Complications Complication None Hemodynamics Pressures Site Systolic/A Wave Diastolic/V Wave Mean AO 100 60 78 AO 103 59 79 AO 78 55 66 Post Procedure Information Blood Pressure: 120/33 mmHg Rhythm: NSR Post procedural instructions were given Surgery consult for CABG Closure Device Time Device Success/Fail 06/15/2019 12:04:00 PM Manual Compression Successful Site Checks Time Location Status Staff Sheath In? Note 12:17 PM Rt Groin No bleeding/ No Hematoma Liza Lewis RT (R) Pulses Time Site Pre-Procedure Post-Procedure Note 06/15/2019 10:53:00 AM Bilateral DP 2+ 06/15/2019 10:53:00 AM Bilateral PT 1+ 12:03:00 PM Bilateral DP 2+ 12:03:00 PM Bilateral PT 1+ Updated by Marlen Werner RT (R) on 06/15/2019 12:18:15 PM electronically signed on 06/15/2019 12:19:57 PM with status of Final
--- NOTE | 2019-06-15 12:27 | Event Note ---
Date of Encounter: 06/15/19 Time of Encounter: 12:30 - Cardiology Event Note Discussed with patient sister, "Goldie," [phone], who would like to be present if any further intervention is done. 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 Severe right iliac/femoral PAD. Consulted CT surgery for CABG evaluation.
--- NOTE | 2019-06-15 13:16 | Internal Med Progress Note ---
Hospitalist Progress Note - Encounter Date of Encounter: 06/15/19 Time of Encounter: 13:11 - Subjective Interval History: Patient was seen and examined at bedside today. Patient denied any chest pain overnight. Patient was hospitalized due to substernal chest pain. Patient troponin was elevated at admission troponins trending down at this time. Cardi ology consulted. We will continue to monitor. - Exam Vitals: Temp Pulse Resp BP Pulse Ox 97.7 F 73 20 126/73 96 06/15/19 12:38 06/15/19 13:08 06/15/19 13:08 06/15/19 13:08 06/15/19 13:08 Exam: General: A & O 3, In no acute distress HENNT: PERRLA. Head atraumatic and makes supple CVS S1 and S2 regular, no murmur RS: Clear to air entry bilaterally, no wheeze, no crackles Abdomen: Soft and nontender. Bowel sounds normal 4 Extremities: No cyanosis, clubbing, and edema Neurology: Cranial II-XII normal. Motor strength 5/5 bilaterally. Sensation intact - Assessment and Plan (1) NSTEMI (non-ST elevated myocardial infarction) Current Visit: Yes Status: Acute Assessment and Plan: Patient presented hospital complaining of chest pain. Patient has a history of coronary artery disease. Patient's troponin was elevated and patient was transferred from the center to the [facility]. Patient's troponins trending down in the hospital. Hard to determine troponin peak. Patient had a symptom for 1 day before he seek medical care. Cardiology on consult. Cardiology is planning on catheterization. Patient is nothing by mouth. We will continue to monitor after catheterization. (2) Essential hypertension Current Visit: No Status: Chronic Assessment and Plan: Continue home antihypertensive medication (3) Mixed hyperlipidemia Current Visit: No Status: Chronic Assessment and Plan: Continue statin (4) Type 2 diabetes mellitus Current Visit: No Status: Chronic Assessment and Plan: Continue bolus regimen (5) DVT prophylaxis Current Visit: No Status: Acute Assessment and Plan: Heparin drip (6) COPD (chronic obstructive pulmonary disease) Current Visit: Yes Status: Acute Assessment and Plan: Continues Spiriva and Singulair. - Time Spent with Patient Total time spent is greater than 50% in coordination of care (as documented) at patient's floor/unit and/or counseling patient: 25 - 35 minutes Plan of Care Discussed with: patient Internal Medicine: Result - Labs CBC & Chem 7: 06/15/19 01:37 06/15/19 01:37 Labs: Short CBC 06/15/19 Range/Units 01:37 WBC 15.2 H (4.3-11.1) K/mcL Hgb 11.9 L (12.9-16.9) g/dL Hct 37.7 (37.5-50.1) % Plt Count 267 (140-400) K/mcL Neutrophils # 12.0 H (1.6-8.9) K/mcL BMP 06/15/19 01:37 Sodium 140 Potassium 3.8 Chloride 102 Carbon Dioxide 29 BUN 25 H Creatinine 1.13 Glucose 216 H Calcium 9.1 Cardiac Enzymes 06/14/19 06/15/19 06/15/19 Range/Units 18:56 01:37 06:05 Troponin I 0.21 H* 0.17 H* 0.16 H* (< 0.04) ng/mL Liver Function 06/15/19 Range/Units 01:37 Total Bilirubin 0.2 L (0.3-1.0) mg/dL Direct Bilirubin 0.1 (0.0-0.2) mg/dL AST 15 (13-39) Units/L ALT 16 (7-52) Units/L Alkaline Phosphatase 76 (34-104) Units/L Albumin 3.7 (3.5-5.7) g/dL - ABG Interpretation ABG results: PT/INR, D-dimer PT 10.9 Seconds (9.4-12.1) 06/14/19 18:56 - Impressions Impressions Chest X-Ray 06/14/19 18:44 IMPRESSION: No acute abnormality identified. D/ / Dean Vallecillo MD / Dean Vallecillo MD Interpreting Provider: Dean Vallecillo MD Echocardiogram Limited Views 06/14/19 19:46 Impressions: LVEF 60-65%. Normal LV chamber size, wall thickness and function. Left Ventricular Wall Motion: Rest Echo Findings All wall segments showed normal motion. Findings: Study Quality * Technically adequate exam. ECG Findings * Normal sinus rhythm. Left Ventricle * LVEF 60-65%. * Normal LV chamber size, wall thickness and function. Right Ventricle * Normal right ventricular structure and function. Aorta * Normally sized aortic root. Pericardium * The pericardium appears normal. Consult Discharge Plan - Plan Referrals: [facility] [Primary Care Provider] - (4) Type 2 diabetes mellitus Qualifiers: Diabetes mellitus assisted insulin use: with manager long term care use Diabetes mellitus complication status: with circulatory complication Diabetes mellitus complication detail: with other circulatory complications Qualified Code(s): E11.59 - Type 2 diabetes mellitus with other circulatory complications; Z79.4 - terminal worker (current) use of insulin (6) COPD (chronic obstructive pulmonary disease) Qualifiers: Chronic bronchitis type: unspecified
[2019-06-15] MEDS: Heparin 25,000 UNIT/250 ML D5W 25,000 UNIT/250 ML IV.SOLN IVC SCH (19:39)
--- NOTE | 2019-06-16 00:33 | Electrocardiograph Report ---
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
[2019-06-16] MEDS: Insulin LISPRO 300 UNITS/3 ML VIAL SQ SCH ×5 (04:17→17:25)
[2019-06-16 06:44] LABS: Basophils # 0.1 K/mcL (0.0-0.2); Basophils % 0.6 %; Eosinophils # 0.4 K/mcL (0.0-0.6); Eosinophils % 3.4 %; Hematocrit 36.7 % (37.5-50.1); Hemoglobin 11.8 g/dL (12.9-16.9); Immature Granulocytes % 0.2 % (0-4); Lymphocytes # 2.7 K/mcL (0.6-4.6); Lymphocytes % 22.4 %; Mean Corpuscular HGB Conc 32.2 g/dL (31.6-35.5); Mean Corpuscular Hemoglobin 31.6 pg (28.0-33.3); Mean Corpuscular Volume 98.1 fL (83.0-100.0); Mean Platelet Volume 12.1 fL (9.4-12.4); Monocytes # 0.8 K/mcL (0.0-1.3); Monocytes % 6.1 %; Neutrophils # 8.2 K/mcL (1.6-8.9); Platelet Count 234 K/mcL (140-400); Red Blood Count 3.74 M/mcL (4.19-5.50); Red Cell Distribution Width 14.6 % (11.5-14.5); Segmented Neutrophils % 67.3 %; White Blood Count 12.2 K/mcL (4.3-11.1)
[2019-06-16 06:55] LABS: BUN/Creatinine Ratio 20 (6-26); Blood Urea Nitrogen 23 mg/dL (8-23); Calcium 9.2 mg/dL (8.6-10.3); Carbon Dioxide 32 mEq/L (23-29); Chloride 101 mEq/L (98-107); Glucose 168 mg/dL (70-105); Osmolality,Calculated 300 (280-300); Potassium 3.8 mEq/L (3.5-5.1); Sodium 141 mEq/L (136-145); eGFR For African Americans > 60 (> 60); eGFR For Non-African Americans > 60 (> 60)
[2019-06-16] MEDS: Budesonide/Formoterol 160/4.5 1 PUFF INH IH SCH ×2 (07:29→21:46)
[2019-06-16] MEDS: Tiotropium 18 MCG inhalation IH SCH (07:30)
[2019-06-16] MEDS: Cholecalciferol (D-3) 1,000 UNIT (25MCG) TABLET PO SCH (08:25)
[2019-06-16] MEDS: Metoprolol XL (24 HR) Succ 25 MG TAB.ER.24H PO SCH (08:25)
[2019-06-16] MEDS: Aspirin Enteric Coated 325 MG Tablet PO SCH (08:25)
[2019-06-16] MEDS: hydrOXYzine pamoate 25 MG CAPSULE PO SCH ×3 (08:25→19:59)
[2019-06-16] MEDS: Furosemide 40 MG TABLET PO SCH ×2 (08:25→17:27)
[2019-06-16] MEDS: Pyridoxine (B-6) 50 MG TABLET PO SCH (08:26)
[2019-06-16] MEDS: Gabapentin 400 MG CAPSULE PO SCH ×3 (08:26→19:59)
[2019-06-16] MEDS: DALIRESP 500 MCG PO SCH (08:30)
--- NOTE | 2019-06-16 10:39 | Cardiothoracic Consult Note ---
Date of Encounter: 06/16/19 Time of Encounter: 10:30 Assessment and Plan (1) NSTEMI (non-ST elevated myocardial infarction) Current Visit: Yes Status: Acute The patient is a 73-year-old type II diabetic, hypertensive man with known CAD, hypercholesterolemia, cerebrovascular disease, and oxygen dependent COPD. He was transferred to [facility] from the [facility] with a diagnosis of an acute NSTEMI. He underwent cardiac catheterization was found to have severe 3 vessel CAD and an LVEF 65% (per transthoracic echocardiogram). In particular, the patient has a 30% proximal left main lesion, 50% distal left main lesion, a 60-70% proximal LAD lesion, an 80% proximal LCx lesion, an 80% proximal OM1 lesion, a 70% proximal RCA lesion, and a 70-80% proximal RPLB lesion. He has been recommended for CABG. The STS risk calculator reveals an operative mortality risk 7.56%, renal failure risk 0.53%, permanent stroke risk 3.25%, deep sternal wound infection risk 0.46%, and reoperation risk 1.87%. The patient is at high risk for CABG and I would recommend medical therapy and/or high risk PCI. If the patient wishes to pursue CABG, he should be transferred to a tertiary [facility] for this procedure. The assessment and plan as outlined above was discussed with the patient and/or family members who expressed understanding and agreement. All questions were answered. - History of Present Illness Consult date: 06/15/19 Requesting physician: David Corbett Consult reason: CABG evaluation Chief complaint: NSTEMI History of present illness: Mr. Boyle is a 73 year old type II diabetic, hypertensive man with known CAD, hypercholesterolemia, cerebrovascular disease, and oxygen dependent COPD. The patient was transferred to [facility] from the [facility] with a diagnosis of an acute NSTEMI. The patient's cardiac history dates back to 10/25/2017 which time he underwent PCI with mid RCA stent placement. He did well until , 06/13/2019 and he had sudden onset of substernal chest pain radiating to his intrascapular region while sitting at home. The patient took sublingual nitroglycerin with almost immediate relief of his symptoms. Unfortunately, the substernal chest pain recurred twice during that day and he had less effective treatment with the sublingual nitroglycerin. On the morning of 06/14/2019, he was awakened with substernal chest pain and was evaluated at the [facility] emergency department. He was found to have elevated troponin I levels consistent with an acute NSTEMI. He was treated medically and transferred to [facility] for further cardiac care. The patient underwent a transthoracic echocardiogram which revealed an LVEF 60- 65% with normal left ventricular chamber size, wall thickness, and function. Subsequent cardiac catheterization and was found to have severe 3 vessel CAD and severe right external iliac/common femoral artery disease. In particular, the patient has a 30% proximal left main lesion, a 50% distal left main lesion, a 60-70% proximal LAD lesion, an 80% proximal LCx lesion, an 80% proximal OM1 lesion, a 70-80% proximal RCA lesion, and a 70-80% proximal RPLB lesion. I have been asked to evaluate the patient for possible high risk CABG. Past Med Surg Social Fam HX - Past Medical History Medical history: COPD, coronary artery disease, CVA, diabetes, GERD, hyperlip idemia, hypertension, myocardial infarction, peripheral artery disease, renal disease, other (Obstructive sleep apnea) Additional medical history: SEVER OBSTRUCTIVE SLEEP APNEA Psychiatric history: anxiety, depression - Past Surgical History Surgical History: carotid endarterectomy, other (Lumbar laminectomy, right total shoulder replacement, right reverse total shoulder replacement) - Social History Smoking Status: Former smoker Smokeless Tobacco Status: No Alcohol use: none Drug use: none Medications and Allergies Albuterol Sulfate [Proventil Inhaler] 2 puff IH Q4HR PRN 02/16/17 [History] Budesonide/Formoterol 160/4.5 [Symbicort 160/4.5] 2 puff IH BIDR PRN 02/16/17 [History] Furosemide [Lasix] 80 mg PO QPM 02/16/17 [History] Furosemide [Lasix] 120 mg PO QAM 02/16/17 [History] GlipiZIDE [Glucotrol] 5 mg PO BIDWM 02/16/17 [History] HYDROcodone/Acet 5/325 mg [Seguin 5-325 mg] 1 tab PO Q6H PRN 02/16/17 [History] Roflumilast [Daliresp] 500 mcg PO DAILY 02/16/17 [History] Tiotropium [Spiriva] 18 mcg IH DAILY 02/16/17 [History] hydrOXYzine pamoate [Vistaril] 25 mg PO TID 02/16/17 [History] Allopurinol [Zyloprim 100 MG] 100 mg PO DAILY 04/04/19 [History] Aspirin Enteric Coated [Aspirin EC] 325 mg PO DAILY 04/04/19 [History] Pyridoxine (B-6) [Vitamin B-6] 50 mg PO DAILY 04/04/19 [History] Tamsulosin HCl [Flomax] 0.4 mg PO HS 04/04/19 [History] Cholecalciferol (D-3) [Vitamin D] 1,000 unit PO DAILY 06/14/19 [History] Metformin HCl [Metformin HCl ER] 500 mg PO QPM 06/14/19 [History] Montelukast [Singulair] 10 mg PO DAILY 06/14/19 [History] Naproxen [Naprosyn] 250 mg PO BID 06/14/19 [History] Atorvastatin Calcium [Lipitor] 80 mg PO HS 06/15/19 [History] Gabapentin [Neurontin] 400 mg PO TID 06/15/19 [History] Memantine HCl 10 mg PO BID 06/15/19 [History] MethylPREDNISolone [MethylPREDNISolone Dose Pack] 4 mg PO AD 06/15/19 [History] Allergy/AdvReac Type Severity Reaction Status Date / Time Salsalate Allergy Hives Verified 06/15/19 17:27 baclofen AdvReac Dizziness, Verified 06/15/19 17:27 Tremor, Hallucinations Cyclobenzaprine AdvReac Hypotension Verified 06/15/19 17:27 [From Flexeril] oxycodone AdvReac Hypotension Verified 06/15/19 17:27 pregabalin [From Lyrica] AdvReac Dizziness, Verified 06/15/19 17:27 Tremor, Hallucinations All Systems Review: The remainder of the systems were reviewed and are negative Physical Examination Vital Signs, Last 4 Hours Temp Pulse Resp BP Pulse Ox 06/16/19 07:45 97.8 F 81 20 115/59 94 06/16/19 07:30 18 94 General: Conversant, No Apparent Distress HEENT: Atraumatic, Normocephaly, Trachea midline Neck: No JVD, Normal carotid pulses, Carotid bruit (Left carotid bruit) Cardiac: Reg Rate and Rhythm, Normal S1 and S2, No Murmur Lungs: Normal Breath Sounds, No Wheeze, Rales, Rhonchi Neuro: Alert and responsive, No focal deficits noted Vascular: Normal capillary refill Abdomen: Soft, Non-tender Skin: No rashes noted on visualized skin Musculoskeletal: No Chest Wall Tenderness Extremities: No Clubbing, No Cyanosis, No Edema Results 06/16/19 06:27 06/16/19 06:27 Lab Results, Last 24 hours 06/16/19 06/16/19 06:27 06:27 WBC 12.2 H Hgb 11.8 L Hct 36.7 L Plt Count 234 Sodium 141 Potassium 3.8 Chloride 101 Carbon Dioxide 32 H BUN 23 Creatinine 1.15 Glucose 168 H Calcium 9.2 - Imaging Chest Xray: image reviewed (Normal cardiac size. No acute pulmonary disease.) Consult Discharge Plan - Plan [facility]errals: [facility] [Primary Care Provider] -
--- NOTE | 2019-06-16 11:49 | Event Note ---
Date of Encounter: 06/16/19 Time of Encounter: 11:48 - Cardiology Event Note Discussed with CT surgery, patient has been deemed high risk for CABG. Discussed with , recommend transfer to tertiary care facility. Of note, [facility] is [facility]. Hospitalist notified. Cardiology will sign off, re-consult if needed.
--- NOTE | 2019-06-16 12:53 | Internal Med Progress Note ---
Hospitalist Progress Note - Encounter Date of Encounter: 06/16/19 Time of Encounter: 12:51 - Subjective Interval History: She was seen and examined at bedside today. Patient has a left heart catheterization done yesterday and patient was found to have multivessel coronary artery disease. CV surgery was placed on consult for evaluation of possible coronary artery bypass graft. Patient reports of chest pain on exertion and while eating. He denied any palpitation. He denied any nausea vomiting and diaphoresis. He denies any fever and chills. - Exam Vitals: Temp Pulse Resp BP Pulse Ox 98.0 F 81 20 135/62 92 06/16/19 10:44 06/16/19 10:44 06/16/19 10:44 06/16/19 10:44 06/16/19 10:44 Exam: General: A & O 3, In no acute distress HENNT: PERRLA. Head atraumatic and makes supple CVS S1 and S2 regular, no murmur RS: Clear to air entry bilaterally, no wheeze, no crackles Abdomen: Soft and nontender. Bowel sounds normal 4 Extremities: No cyanosis, clubbing, and edema Neurology: Cranial II-XII normal. Motor strength 5/5 bilaterally. Sensation i ntact - Assessment and Plan (1) NSTEMI (non-ST elevated myocardial infarction) Current Visit: Yes Status: Acute Assessment and Plan: She is currently being treated for non-ST elevation MT. Patient underwent left heart catheterization yesterday. Patient found to have multivessel coronary artery disease. CT surgery on consult for possible evaluation of coronary artery bypass graft. CT surgery recommendation to transfer patient [facility] for CABG. Will transfer patient to [facility]. We will continue heparin drip and medical management for non ST elevation MT. (2) Essential hypertension Current Visit: No Status: Chronic Assessment and Plan: Continue home antihypertensive medication (3) Mixed hyperlipidemia Current Visit: No Status: Chronic Assessment and Plan: Continue statin (4) Type 2 diabetes mellitus Current Visit: No Status: Chronic Assessment and Plan: Continue bolus regimen (5) COPD (chronic obstructive pulmonary disease) Current Visit: Yes Status: Acute Assessment and Plan: Continues Spiriva and Singulair. (6) DVT prophylaxis Current Visit: No Status: Acute Assessment and Plan: Heparin drip - Time Spent with Patient Total time spent is greater than 50% in coordination of care (as documented) at patient's floor/unit and/or counseling patient: 25 - 35 minutes Plan of Care Discussed with: patient Internal Medicine: Result - Labs CBC & Chem 7: 06/16/19 06:27 06/16/19 06:27 Labs: Short CBC 06/16/19 Range/Units 06:27 WBC 12.2 H (4.3-11.1) K/mcL Hgb 11.8 L (12.9-16.9) g/dL Hct 36.7 L (37.5-50.1) % Plt Count 234 (140-400) K/mcL Neutrophils # 8.2 (1.6-8.9) K/mcL BMP 06/16/19 06:27 Sodium 141 Potassium 3.8 Chloride 101 Carbon Dioxide 32 H BUN 23 Creatinine 1.15 Glucose 168 H Calcium 9.2 - ABG Interpretation ABG results: PT/INR, D-dimer PT 10.9 Seconds (9.4-12.1) 06/14/19 18:56 Consult Discharge Plan - Plan [facility]errals: [facility] [Primary Care Provider] - (4) Type 2 diabetes mellitus Qualifiers: Diabetes mellitus intermediate designer insulin use: with intermediate designer use Diabetes mellitus complication status: with circulatory complication Diabetes mellitus complication detail: with other circulatory complications Qualified Code(s): E11.59 - Type 2 diabetes mellitus with other circulatory complications; Z79.4 - rn long term care (current) use of insulin (5) COPD (chronic obstructive pulmonary disease) Qualifiers: Chronic bronchitis type: unspecified
[2019-06-16] MEDS: Heparin 25,000 UNIT/250 ML D5W 25,000 UNIT/250 ML IV.SOLN IVC SCH (13:43)
[2019-06-16] MEDS: *HR* HYDROcodone/Acet 5/325 mg TABLET PO PRN (13:56)
--- NOTE | 2019-06-16 15:25 | Discharge Summary ---
- NOTES TO OUTPATIENT PROVIDER Notes to Outpatient Provider: Patient was admitted to the hospital for non-ST elevation TX. Cardiology on consult. Patient had LC done which showed multivessel coronary artery disease. CT surgery was consulted for possible evaluation of coronary artery bypass graft. [facility] recommended patient is high-risk for bypass graft. Recommendation from cardiology to transfer patient to tertiary care for CABG and / or PCI treatment for CAD. Date of Encounter: 06/16/19 Time of Encounter: 15:20 - Discharge Diagnosis (1) NSTEMI (non-ST elevated myocardial infarction) Priority: Primary Status: Acute (2) CAD (coronary artery disease) Priority: Secondary Status: Chronic Qualifiers: Coronary Disease-Associated Artery/Lesion type: [place] artery [place] vs. transplanted heart: inupiat heart Associated angina: with unstable angina Qualified Code(s): I25.110 - Atherosclerotic heart disease of inupiat coronary artery with unstable angina pectoris (3) Essential hypertension Priority: Secondary Status: Chronic (4) Mixed hyperlipidemia Priority: Secondary Status: Chronic (5) Type 2 diabetes mellitus Priority: Secondary Status: Chronic Qualifiers: Diabetes mellitus termite exterminator helper insulin use: with custodial use Diabetes mellitus complication status: with circulatory complication Diabetes mellitus complication detail: with other circulatory complications Qualified Code(s): E11.59 - Type 2 diabetes mellitus with other circulatory complications; Z79.4 - [facility] (current) use of insulin (6) COPD (chronic obstructive pulmonary disease) Priority: Secondary Status: Acute Qualifiers: COPD type: chronic bronchitis Chronic bronchitis type: unspecified Qualified Code(s): J42 - Unspecified chronic bronchitis (7) DVT prophylaxis Priority: Secondary Status: Acute Hospital course: Mr. Boyle is a 73 year old male with past medical history of hypertension, hyperlipidemia, COPD on home oxygen, CAD status post stent was admitted to the hospital for non-ST elevation TX. Cardiology on consult. Patient had LC done which showed multivessel coronary artery disease. CT surgery was consulted for possible evaluation of coronary artery bypass graft. [facility] recommended patient is high-risk for bypass graft. Recommendation from cardiology to transfer patient to tertiary care for CABG and / or PCI treatment for CAD. Transfer center at [facility] was called. Patient was accepted at the [facility]. We will transfer patient to [facility] once bed available at [facility]. We will continue heparin drip and medical management. Clinic Discharge discussed with: patient, family, nurse, building performance consultant - Time Spent with Patient Total time spent providing and/or coordinating discharge services:45 Time spent: Greater than 30 minutes - Discharge Medications Prescriptions: Continued Tiotropium [Spiriva] 18 mcg IH DAILY Roflumilast [Daliresp] 500 mcg PO DAILY hydrOXYzine pamoate [Vistaril] 25 mg PO TID HYDROcodone/Acet 5/325 mg [Bristol 5-325 mg] 1 tab PO Q6H PRN PRN Reason: Moderate Pain GlipiZIDE [Glucotrol] 5 mg PO BIDWM Furosemide [Lasix] 120 mg PO QAM Furosemide [Lasix] 80 mg PO QPM Budesonide/Formoterol 160/4.5 [Symbicort 160/4.5] 2 puff IH BIDR PRN PRN Reason: Shortness Of Breath Albuterol Sulfate [Proventil Inhaler] 2 puff IH Q4HR PRN PRN Reason: Wheezing/SOB Allopurinol [Zyloprim 100 MG] 100 mg PO DAILY Aspirin Enteric Coated [Aspirin EC] 325 mg PO DAILY Pyridoxine (B-6) [Vitamin B-6] 50 mg PO DAILY Tamsulosin HCl [Flomax] 0.4 mg PO HS Cholecalciferol (D-3) [Vitamin D] 1,000 unit PO DAILY Metformin HCl [Metformin HCl ER] 500 mg PO QPM Montelukast [Singulair] 10 mg PO DAILY Naproxen [Naprosyn] 250 mg PO BID Atorvastatin Calcium [Lipitor] 80 mg PO HS Gabapentin [Neurontin] 400 mg PO TID Memantine HCl 10 mg PO BID MethylPREDNISolone [MethylPREDNISolone Dose Pack] 4 mg PO AD Home Medications: Albuterol Sulfate [Proventil Inhaler] 2 puff IH Q4HR PRN 02/16/17 [History] Budesonide/Formoterol 160/4.5 [Symbicort 160/4.5] 2 puff IH BIDR PRN 02/16/17 [ History] Furosemide [Lasix] 80 mg PO QPM 02/16/17 [History] Furosemide [Lasix] 120 mg PO QAM 02/16/17 [History] GlipiZIDE [Glucotrol] 5 mg PO BIDWM 02/16/17 [History] HYDROcodone/Acet 5/325 mg [Bristol 5-325 mg] 1 tab PO Q6H PRN 02/16/17 [History] Roflumilast [Daliresp] 500 mcg PO DAILY 02/16/17 [History] Tiotropium [Spiriva] 18 mcg IH DAILY 02/16/17 [History] hydrOXYzine pamoate [Vistaril] 25 mg PO TID 02/16/17 [History] Allopurinol [Zyloprim 100 MG] 100 mg PO DAILY 04/04/19 [History] Aspirin Enteric Coated [Aspirin EC] 325 mg PO DAILY 04/04/19 [History] Pyridoxine (B-6) [Vitamin B-6] 50 mg PO DAILY 04/04/19 [History] Tamsulosin HCl [Flomax] 0.4 mg PO HS 04/04/19 [History] Cholecalciferol (D-3) [Vitamin D] 1,000 unit PO DAILY 06/14/19 [History] Metformin HCl [Metformin HCl ER] 500 mg PO QPM 06/14/19 [History] Montelukast [Singulair] 10 mg PO DAILY 06/14/19 [History] Naproxen [Naprosyn] 250 mg PO BID 06/14/19 [History] Atorvastatin Calcium [Lipitor] 80 mg PO HS 06/15/19 [History] Gabapentin [Neurontin] 400 mg PO TID 06/15/19 [History] Memantine HCl 10 mg PO BID 06/15/19 [History] MethylPREDNISolone [MethylPREDNISolone Dose Pack] 4 mg PO AD 06/15/19 [History] Allergies/Adverse Reactions: Allergy/AdvReac Type Severity Reaction Status Date / Time Salsalate Allergy Hives Verified 06/15/19 17:27 baclofen AdvReac Dizziness, Verified 06/15/19 17:27 Tremor, Hallucinations Cyclobenzaprine AdvReac Hypotension Verified 06/15/19 17:27 [From Flexeril] oxycodone AdvReac Hypotension Verified 06/15/19 17:27 pregabalin [From Lyrica] AdvReac Dizziness, Verified 06/15/19 17:27 Tremor, Hallucinations Date of admission: 06/14/19 19:45 [facility] care physician[facility] Consults: 06/14/19 18:43 Consult to Cardiology [CONS] Routine Comment: Consulting Provider: Cardiology [place] Reason for Consult: ACS, NSTEMI, hx of CAD s/p stent Time Notified: 18:44 Call Completed: Yes 06/15/19 12:06 Consult to Cardiothoracic Surgery [CONS] Routine Consulting Provider: Cardiothoracic Surgery [place] Reason for Consult: open heart Call Completed: Yes 06/16/19 11:50 Consult to Cardiac Rehabilitation-Phase1 [CONS] Routine Comment: Reason for Consult: NSTEMI Call Completed: No Discharging clinician: Donavon Quesada - Constitutional Vitals: Temp Pulse Resp BP Pulse Ox 97.8 F 69 18 142/76 100 06/16/19 15:07 06/16/19 15:07 06/16/19 15:07 06/16/19 15:07 06/16/19 15:07 General appearance: Present: cooperative, A&O X 3 Exam: General: A & O 3, In no acute distress HENNT: PERRLA. Head atraumatic and makes supple CVS S1 and S2 regular, no murmur RS: Clear to air entry bilaterally, no wheeze, no crackles Abdomen: Soft and nontender. Bowel sounds normal 4 Extremities: No cyanosis, clubbing, and edema Neurology: Cranial II-XII normal. Motor strength 5/5 bilaterally. Sensation intact - Patient Status Disposition: Transfer Short-Term Hosp Condition: Good Overall status at discharge: patient is not back to baseline - Discharge Instructions Follow Up With: [facility] [Primary Care Provider] - - Diet and Activity Activity: as per the cardiac rehab Diet: diabetic diet, low salt diet
[2019-06-16 19:29] VITALS: BP 168/76
[2019-06-16] MEDS ORDERED: Insulin LISPRO 300 UNITS/3 ML VIAL SQ SCH (21:00)
== END 2019-06-16 20:30 | disposition short-term general hospital (02) | DRG 282 ==
LOC: EMEROOARM 18:09 → 2ANU 18:09 → SUATTDRO 19:45 → 2ANU 19:52
PROVIDERS: ADMIT Internal Medicine; ATTEND Family Medicine

== ENCOUNTER 2019-07-16 21:14 | Inpatient (IN) ==
[2019-07-16] MEDS ORDERED: Ipratropium/Albuterol Neb 3 ML IH ONE (21:31)
[2019-07-16] MEDS ORDERED: *HR* LORazepam 2 MG/ML VIAL IVP ONE (21:37)
[2019-07-16 21:47] LABS: Basophils % 0.2 %; Eosinophils % 0.1 %; Mean Platelet Volume 11.7 fL (9.4-12.4)
[2019-07-16 21:48] LABS: Basophils # 0.1 K/mcL (0.0-0.2); Hematocrit 28.8 % (37.5-50.1); Hemoglobin 8.9 g/dL (12.9-16.9); Immature Granulocytes % 0.7 % (0-4); Lymphocytes # 1.2 K/mcL (0.6-4.6); Lymphocytes % 4.1 %; Mean Corpuscular HGB Conc 30.9 g/dL (31.6-35.5); Mean Corpuscular Hemoglobin 30.9 pg (28.0-33.3); Monocytes % 4.8 %; Platelet Count 473 K/mcL (140-400); Red Blood Count 2.88 M/mcL (4.19-5.50); Red Cell Distribution Width 15.2 % (11.5-14.5); Segmented Neutrophils % 90.1 %
[2019-07-16 21:53] LABS: INR 1.5; Prothrombin Time 16.6 Seconds (9.4-12.1)
[2019-07-16 21:54] LABS: Monocytes # 1.4 K/mcL (0.0-1.3)
[2019-07-16 22:08] LABS: Alanine Aminotransferase 24 Units/L (7-52); Albumin 3.6 g/dL (3.5-5.7); Alkaline Phosphatase 86 Units/L (34-104); Aspartate Amino Transferase 20 Units/L (13-39); BUN/Creatinine Ratio 20 (6-26); Bilirubin,Direct 0.2 mg/dL (0.0-0.2); Bilirubin,Indirect 0.5 mg/dL (0.0-1.2); Bilirubin,Total 0.7 mg/dL (0.3-1.0); Blood Urea Nitrogen 26 mg/dL (8-23); Calcium 9.3 mg/dL (8.6-10.3); Carbon Dioxide 28 mEq/L (23-29); Chloride 105 mEq/L (98-107); Globulin 3.7 g/dL (2.4-3.5); Glucose 154 mg/dL (70-105); Osmolality,Calculated 306 (280-300); Potassium 4.1 mEq/L (3.5-5.1); Sodium 144 mEq/L (136-145); Total Protein 7.3 g/dL (6.4-8.9); eGFR For African Americans > 60 (> 60); eGFR For Non-African Americans 56 (> 60)
[2019-07-16 22:15] LABS: Troponin I 0.05 ng/mL (< 0.04)
[2019-07-16 22:27] LABS: ABG Base Excess 5 mEq/L (-2 to 3); ABG HCO3 31 mEq/L (21-27); ABG Oxygen Saturation 95 % (95-98); ABG PCO2 53 mmHg (35-45); ABG PH 7.38 pH Units (7.32-7.45); ABG PO2 76 mmHg (85-104); ABG TCO2 33 mEq/L (20-26)
[2019-07-16] MEDS ORDERED: Furosemide 40 MG/4 ML VIAL IVP ONE (22:42)
[2019-07-16] MEDS ORDERED: methylPREDNISolone 125 MG/2 ML VIAL IVP ONE (23:02)
[2019-07-16] MEDS ORDERED: Piperacillin/Tazobactam 3.375 GM in 0.9 % Sodium Chloride Mini Bag 100 ML IVPB ONE (23:23)
[2019-07-17] MEDS ORDERED: Ondansetron ODT 4 MG TAB.RAPDIS SL PRN (00:37)
[2019-07-17] MEDS ORDERED: Naloxone 0.4 MG/ML INJ IVP PRN (00:37)
[2019-07-17] MEDS ORDERED: Isovue-370 500 ML BOTTLE IVP ONE (01:18)
[2019-07-17] MEDS ORDERED: *HR* Dextrose 50 % in Water (Syg) 50 ML SYRINGE IVP PRN (01:26)
[2019-07-17] MEDS ORDERED: D5% in Water 1,000 ML IVC PRN (01:26)
[2019-07-17] MEDS ORDERED: Dextrose Gel 15 GM/37.5 ML TUBE PO PRN ×2 (01:26)
[2019-07-17] MEDS ORDERED: 0.9 % Sodium Chloride 1,000 ML IVC SCH (01:45)
[2019-07-17] MEDS: Ipratropium/Albuterol Neb 3 ML IH SCH ×4 (03:56→22:03)
[2019-07-17 04:32] LABS: Bilirubin,Urine Negative (Negative); Blood,Urine Negative (Negative); Clarity,Urine Clear (Clear); Color,Urine Yellow (Yellow); Glucose,Urine (UA) Normal (Normal); Ketones,Urine Negative (Negative); Leukocyte Esterase,Urine Negative (Negative); Nitrite,Urine Negative (Negative); Protein,Urine Negative (Neg-Trace); Specific Gravity,Urine 1.016 (1.010-1.025); Urobilinogen,Urine Normal (Normal)
[2019-07-17] MEDS ORDERED: *HR* Heparin 5,000 UNIT/ML VIAL SQ SCH (06:00)
[2019-07-17 06:54] LABS: ABG Base Excess 5 mEq/L (-2 to 3); ABG HCO3 27 mEq/L (21-27); ABG Oxygen Saturation 96 % (95-98); ABG PCO2 29 mmHg (35-45); ABG PH 7.57 pH Units (7.32-7.45); ABG PO2 70 mmHg (85-104); ABG TCO2 28 mEq/L (20-26)
[2019-07-17] MEDS: Insulin LISPRO 300 UNITS/3 ML VIAL SQ SCH ×4 (06:56→23:46)
[2019-07-17 07:10] LABS: Hemoglobin 9.2 g/dL (12.9-16.9); Mean Platelet Volume 12.3 fL (9.4-12.4)
[2019-07-17 07:11] LABS: Hematocrit 29.4 % (37.5-50.1); Mean Corpuscular HGB Conc 31.3 g/dL (31.6-35.5); Platelet Count 409 K/mcL (140-400); Red Blood Count 2.97 M/mcL (4.19-5.50); Red Cell Distribution Width 15.1 % (11.5-14.5); White Blood Count 27.7 K/mcL (4.3-11.1)
[2019-07-17 07:26] LABS: BUN/Creatinine Ratio 21 (6-26); Blood Urea Nitrogen 26 mg/dL (8-23); Calcium 9.3 mg/dL (8.6-10.3); Carbon Dioxide 29 mEq/L (23-29); Chloride 107 mEq/L (98-107); Glucose 191 mg/dL (70-105); Osmolality,Calculated 300 (280-300); Potassium 4.1 mEq/L (3.5-5.1); Sodium 140 mEq/L (136-145); eGFR For African Americans > 60 (> 60); eGFR For Non-African Americans 56 (> 60)
[2019-07-17] MEDS: Cholecalciferol (D-3) 1,000 UNIT (25MCG) TABLET PO SCH (08:26)
[2019-07-17] MEDS: Furosemide 40 MG TABLET PO SCH (08:26)
[2019-07-17] MEDS: Pyridoxine (B-6) 50 MG TABLET PO SCH (08:26)
[2019-07-17] MEDS: Aspirin Enteric Coated 81 MG Tablet PO SCH (08:26)
[2019-07-17] MEDS ORDERED: amLODIPine 5 MG TABLET PO SCH (09:00)
[2019-07-17 09:09] LABS: Neutrophils # 27.7 K/mcL (1.6-8.9)
[2019-07-17 09:10] LABS: Poikilocytosis 1+ (Not Present)
[2019-07-17] MEDS: Piperacillin/Tazobactam 3.375 GM in 0.9 % Sodium Chloride Mini Bag 100 ML IVPB SCH ×3 (09:35→23:51)
[2019-07-17 10:05] LABS: Troponin I 0.07 ng/mL (< 0.04)
[2019-07-17] MEDS ORDERED: *HR* LORazepam 2 MG/ML VIAL IVP ONE (12:50)
[2019-07-17] MEDS ORDERED: Perflutren Lipid Microsphere 1.3 ML in 0.9 % Sodium Chloride 8.7 ML IVP ONE (13:07)
[2019-07-17 13:12] LABS: Adenovirus Not Detected (Not Detect); Bordetella Pertussis Not Detected (Not Detect); Chlamydophila pneumoniae Not Detected (Not Detect); Coronavirus 229E Not Detected (Not Detect); Coronavirus HKU1 Not Detected (Not Detect); Coronavirus NL63 Not Detected (Not Detect); Coronavirus OC43 Not Detected (Not Detect); Human Metapneumovirus Not Detected (Not Detect); Human Rhinovirus/Enterovirus Not Detected (Not Detect); Influenza A Subtype 2009 H1 Not Detected (Not Detect); Influenza A Untypeable Not Detected (Not Detect); Influenza B Not Detected (Not Detect); Mycoplasma pneumoniae Not Detected (Not Detect); Parainfluenza Virus 1 Not Detected (Not Detect); Parainfluenza Virus 2 Not Detected (Not Detect); Parainfluenza Virus 3 Not Detected (Not Detect); Parainfluenza Virus 4 Not Detected (Not Detect); Respiratory Syncytial Virus Not Detected (Not Detect)
[2019-07-17 16:06] LABS: Lactate Dehydrogenase 207 Units/L (140-271); Total Protein 7.1 g/dL (6.4-8.9)
[2019-07-17 19:30] LABS: Total Protein,Pleural Fluid 3.5 g/dL
[2019-07-17 19:57] LABS: RBC,Pleural Fluid 0.006 M/mcL
[2019-07-17] MEDS ORDERED: Sennosides/Docusate Sodium TABLET PO SCH (21:00)
[2019-07-17 21:25] LABS: Appearance of Pleural Fl Hazy (Clear)
[2019-07-17 21:30] LABS: Basophils,Pleural Fluid 0 %; Eosinophils,Pleural Fluid 0 %
[2019-07-17] MEDS: Budesonide Neb 0.5 MG/2 ML IH SCH (22:03)
[2019-07-17] MEDS: *HR* Heparin 5,000 UNIT/ML VIAL SQ SCH (23:51)
[2019-07-18 01:10] LABS: BUN/Creatinine Ratio 25 (6-26); Blood Urea Nitrogen 34 mg/dL (8-23); Carbon Dioxide 28 mEq/L (23-29); Chloride 108 mEq/L (98-107); Glucose 156 mg/dL (70-105); Osmolality,Calculated 309 (280-300); Potassium 4.1 mEq/L (3.5-5.1); Sodium 144 mEq/L (136-145); eGFR For African Americans > 60 (> 60); eGFR For Non-African Americans 51 (> 60)
[2019-07-18 01:15] LABS: Basophils % 0.1 %; Hematocrit 27.5 % (37.5-50.1); Hemoglobin 8.4 g/dL (12.9-16.9); Immature Granulocytes % 0.5 % (0-4); Lymphocytes # 0.9 K/mcL (0.6-4.6); Lymphocytes % 4.7 %; Mean Corpuscular HGB Conc 30.5 g/dL (31.6-35.5); Mean Corpuscular Hemoglobin 30.2 pg (28.0-33.3); Mean Corpuscular Volume 98.9 fL (83.0-100.0); Mean Platelet Volume 12.3 fL (9.4-12.4); Neutrophils # 17.6 K/mcL (1.6-8.9); Platelet Count 388 K/mcL (140-400); Red Blood Count 2.78 M/mcL (4.19-5.50); Red Cell Distribution Width 15.4 % (11.5-14.5); Segmented Neutrophils % 89.7 %; White Blood Count 19.6 K/mcL (4.3-11.1)
[2019-07-18] MEDS: Ipratropium/Albuterol Neb 3 ML IH SCH ×4 (03:52→21:53)
[2019-07-18] MEDS: *HR* Heparin 5,000 UNIT/ML VIAL SQ SCH ×2 (06:50→17:29)
[2019-07-18] MEDS ORDERED: Aminoglycoside Consult 1 EACH MC ONE (07:40)
[2019-07-18] MEDS: Pyridoxine (B-6) 50 MG TABLET PO SCH (08:06)
[2019-07-18] MEDS: Cholecalciferol (D-3) 1,000 UNIT (25MCG) TABLET PO SCH (08:06)
[2019-07-18] MEDS: Aspirin Enteric Coated 81 MG Tablet PO SCH (08:06)
[2019-07-18] MEDS: Furosemide 40 MG TABLET PO SCH (08:06)
[2019-07-18] MEDS: Piperacillin/Tazobactam 3.375 GM in 0.9 % Sodium Chloride Mini Bag 100 ML IVPB SCH ×2 (08:07→17:28)
[2019-07-18] MEDS: Insulin LISPRO 300 UNITS/3 ML VIAL SQ SCH ×4 (08:16→21:53)
[2019-07-18] MEDS ORDERED: NON-FORMULARY MEDICATION 1 EACH EACH (Roflumilast [Daliresp] 500 MCG) PO SCH (09:00)
[2019-07-18] MEDS: Budesonide Neb 0.5 MG/2 ML IH SCH ×2 (10:29→21:53)
[2019-07-19] MEDS: Piperacillin/Tazobactam 3.375 GM in 0.9 % Sodium Chloride Mini Bag 100 ML IVPB SCH ×3 (00:03→16:46)
[2019-07-19 01:11] LABS: Basophils % 0.2 %; Eosinophils % 0.1 %; Hematocrit 27.6 % (37.5-50.1); Hemoglobin 8.2 g/dL (12.9-16.9); Immature Granulocytes % 0.6 % (0-4); Lymphocytes # 1.2 K/mcL (0.6-4.6); Lymphocytes % 6.6 %; Mean Corpuscular HGB Conc 29.7 g/dL (31.6-35.5); Mean Corpuscular Hemoglobin 29.7 pg (28.0-33.3); Mean Platelet Volume 12.7 fL (9.4-12.4); Monocytes # 1.2 K/mcL (0.0-1.3); Monocytes % 6.3 %; Neutrophils # 15.8 K/mcL (1.6-8.9); Platelet Count 345 K/mcL (140-400); Red Blood Count 2.76 M/mcL (4.19-5.50); Red Cell Distribution Width 15.4 % (11.5-14.5); Segmented Neutrophils % 86.2 %; White Blood Count 18.3 K/mcL (4.3-11.1)
[2019-07-19 01:31] LABS: BUN/Creatinine Ratio 26 (6-26); Blood Urea Nitrogen 34 mg/dL (8-23); Calcium 8.7 mg/dL (8.6-10.3); Carbon Dioxide 29 mEq/L (23-29); Chloride 108 mEq/L (98-107); Glucose 110 mg/dL (70-105); Osmolality,Calculated 306 (280-300); Potassium 3.7 mEq/L (3.5-5.1); Sodium 144 mEq/L (136-145); eGFR For African Americans > 60 (> 60); eGFR For Non-African Americans 53 (> 60)
[2019-07-19] MEDS: *HR* LORazepam 0.5 MG TABLET PO PRN ×3 (01:35→19:52)
[2019-07-19] MEDS: Acetaminophen 325 MG TABLET PO PRN ×2 (01:35→20:08)
[2019-07-19] MEDS: Ipratropium/Albuterol Neb 3 ML IH SCH ×4 (03:42→22:07)
[2019-07-19] MEDS: *HR* Heparin 5,000 UNIT/ML VIAL SQ SCH ×2 (05:51→16:47)
[2019-07-19] MEDS: Cholecalciferol (D-3) 1,000 UNIT (25MCG) TABLET PO SCH (08:16)
[2019-07-19] MEDS: Insulin LISPRO 300 UNITS/3 ML VIAL SQ SCH ×4 (08:16→23:01)
[2019-07-19] MEDS: Furosemide 40 MG TABLET PO SCH (08:16)
[2019-07-19] MEDS: Pyridoxine (B-6) 50 MG TABLET PO SCH (08:17)
[2019-07-19] MEDS: Aspirin Enteric Coated 81 MG Tablet PO SCH (08:17)
[2019-07-19] MEDS: Budesonide Neb 0.5 MG/2 ML IH SCH ×2 (09:49→22:07)
[2019-07-19 12:53] LABS: Hematocrit 28.3 % (37.5-50.1); Hemoglobin 8.5 g/dL (12.9-16.9)
[2019-07-20] MEDS: Piperacillin/Tazobactam 3.375 GM in 0.9 % Sodium Chloride Mini Bag 100 ML IVPB SCH ×4 (00:15→23:54)
[2019-07-20] MEDS: Ipratropium/Albuterol Neb 3 ML IH SCH ×4 (03:51→21:57)
[2019-07-20] MEDS: *HR* Heparin 5,000 UNIT/ML VIAL SQ SCH ×2 (05:21→17:40)
[2019-07-20] MEDS: Furosemide 40 MG TABLET PO SCH (06:24)
[2019-07-20 08:14] LABS: Basophils % 0.2 %; Eosinophils # 0.2 K/mcL (0.0-0.6); Eosinophils % 1.7 %; Hematocrit 25.8 % (37.5-50.1); Hemoglobin 7.8 g/dL (12.9-16.9); Immature Granulocytes % 0.3 % (0-4); Lymphocytes # 1.1 K/mcL (0.6-4.6); Lymphocytes % 8.7 %; Mean Corpuscular HGB Conc 30.2 g/dL (31.6-35.5); Mean Corpuscular Hemoglobin 30.5 pg (28.0-33.3); Mean Corpuscular Volume 100.8 fL (83.0-100.0); Mean Platelet Volume 12.1 fL (9.4-12.4); Monocytes # 0.8 K/mcL (0.0-1.3); Monocytes % 6.5 %; Neutrophils # 10.3 K/mcL (1.6-8.9); Platelet Count 283 K/mcL (140-400); Red Blood Count 2.56 M/mcL (4.19-5.50); Red Cell Distribution Width 15.1 % (11.5-14.5); Segmented Neutrophils % 82.6 %; White Blood Count 12.5 K/mcL (4.3-11.1)
[2019-07-20 08:32] LABS: BUN/Creatinine Ratio 19 (6-26); Blood Urea Nitrogen 23 mg/dL (8-23); Calcium 8.5 mg/dL (8.6-10.3); Carbon Dioxide 31 mEq/L (23-29); Chloride 110 mEq/L (98-107); Glucose 133 mg/dL (70-105); Osmolality,Calculated 302 (280-300); Sodium 143 mEq/L (136-145); eGFR For African Americans > 60 (> 60); eGFR For Non-African Americans 59 (> 60)
[2019-07-20] MEDS: Insulin LISPRO 300 UNITS/3 ML VIAL SQ SCH ×4 (08:32→20:14)
[2019-07-20] MEDS: Pyridoxine (B-6) 50 MG TABLET PO SCH (08:41)
[2019-07-20] MEDS: Aspirin Enteric Coated 81 MG Tablet PO SCH (08:41)
[2019-07-20] MEDS: Cholecalciferol (D-3) 1,000 UNIT (25MCG) TABLET PO SCH (08:42)
[2019-07-20] MEDS ORDERED: levoFLOXacin 500 MG/100 ML 500 MG/100 ML BAG IVPB SCH (09:00)
[2019-07-20] MEDS: Budesonide Neb 0.5 MG/2 ML IH SCH ×2 (10:06→21:58)
[2019-07-20 10:49] LABS: Hematocrit 25.9 % (37.5-50.1); Hemoglobin 7.8 g/dL (12.9-16.9)
[2019-07-20] MEDS ORDERED: 0.9 % Sodium Chloride Mini Bag 100 ML ONE (11:31)
[2019-07-20] MEDS: Ipratropium Neb 0.5 MG NEBULIZER IH PRN (13:38)
[2019-07-20] MEDS: *HR* LORazepam 0.5 MG TABLET PO PRN (13:39)
[2019-07-20] MEDS: levoFLOXacin 500 MG/100 ML 500 MG/100 ML BAG IVPB SCH (15:27)
[2019-07-20 16:59] LABS: Hematocrit 29.6 % (37.5-50.1)
[2019-07-20] MEDS ORDERED: Furosemide 20 MG/2 ML VIAL IVP ONE (18:12)
[2019-07-20 22:33] LABS: Hematocrit 27.3 % (37.5-50.1); Hemoglobin 8.4 g/dL (12.9-16.9)
[2019-07-21] MEDS: Ipratropium/Albuterol Neb 3 ML IH SCH ×4 (04:17→22:08)
[2019-07-21] MEDS: *HR* Heparin 5,000 UNIT/ML VIAL SQ SCH ×2 (04:50→16:38)
[2019-07-21 08:40] LABS: Basophils % 0.2 %; Eosinophils # 0.3 K/mcL (0.0-0.6); Eosinophils % 2.5 %; Hematocrit 29.4 % (37.5-50.1); Immature Granulocytes % 0.3 % (0-4); Lymphocytes % 7.6 %; Mean Corpuscular HGB Conc 30.6 g/dL (31.6-35.5); Mean Corpuscular Hemoglobin 30.3 pg (28.0-33.3); Mean Platelet Volume 12.7 fL (9.4-12.4); Monocytes # 0.9 K/mcL (0.0-1.3); Monocytes % 6.5 %; Platelet Count 252 K/mcL (140-400); Red Blood Count 2.97 M/mcL (4.19-5.50); Red Cell Distribution Width 15.8 % (11.5-14.5); Segmented Neutrophils % 82.9 %; White Blood Count 13.3 K/mcL (4.3-11.1)
[2019-07-21 09:00] LABS: BUN/Creatinine Ratio 16 (6-26); Blood Urea Nitrogen 18 mg/dL (8-23); Calcium 8.7 mg/dL (8.6-10.3); Carbon Dioxide 33 mEq/L (23-29); Chloride 109 mEq/L (98-107); Glucose 132 mg/dL (70-105); Osmolality,Calculated 302 (280-300); Potassium 3.8 mEq/L (3.5-5.1); Sodium 144 mEq/L (136-145); eGFR For African Americans > 60 (> 60); eGFR For Non-African Americans > 60 (> 60)
[2019-07-21] MEDS: Cholecalciferol (D-3) 1,000 UNIT (25MCG) TABLET PO SCH (09:07)
[2019-07-21] MEDS: Furosemide 40 MG TABLET PO SCH (09:07)
[2019-07-21] MEDS: Aspirin Enteric Coated 81 MG Tablet PO SCH (09:09)
[2019-07-21] MEDS: Pyridoxine (B-6) 50 MG TABLET PO SCH (09:09)
[2019-07-21] MEDS: Piperacillin/Tazobactam 3.375 GM in 0.9 % Sodium Chloride Mini Bag 100 ML IVPB SCH ×3 (09:10→23:31)
[2019-07-21] MEDS: Insulin LISPRO 300 UNITS/3 ML VIAL SQ SCH ×4 (09:11→20:43)
[2019-07-21] MEDS: Budesonide Neb 0.5 MG/2 ML IH SCH ×2 (10:06→22:08)
[2019-07-21] MEDS: levoFLOXacin 500 MG/100 ML 500 MG/100 ML BAG IVPB SCH (14:11)
[2019-07-21] MEDS: *HR* LORazepam 0.5 MG TABLET PO PRN (20:47)
[2019-07-22] MEDS: Ipratropium/Albuterol Neb 3 ML IH SCH ×4 (03:12→21:48)
[2019-07-22] MEDS: *HR* Heparin 5,000 UNIT/ML VIAL SQ SCH ×2 (04:44→17:16)
[2019-07-22 05:30] LABS: Basophils % 0.2 %; Eosinophils # 0.4 K/mcL (0.0-0.6); Eosinophils % 2.6 %; Hematocrit 30.7 % (37.5-50.1); Hemoglobin 9.1 g/dL (12.9-16.9); Immature Granulocytes % 0.5 % (0-4); Lymphocytes # 1.2 K/mcL (0.6-4.6); Lymphocytes % 7.8 %; Mean Corpuscular HGB Conc 29.6 g/dL (31.6-35.5); Mean Corpuscular Hemoglobin 29.7 pg (28.0-33.3); Mean Corpuscular Volume 100.3 fL (83.0-100.0); Mean Platelet Volume 12.6 fL (9.4-12.4); Monocytes # 0.8 K/mcL (0.0-1.3); Monocytes % 5.2 %; Neutrophils # 12.3 K/mcL (1.6-8.9); Platelet Count 280 K/mcL (140-400); Red Blood Count 3.06 M/mcL (4.19-5.50); Red Cell Distribution Width 15.5 % (11.5-14.5); Segmented Neutrophils % 83.7 %; White Blood Count 14.7 K/mcL (4.3-11.1)
[2019-07-22] MEDS: Furosemide 40 MG TABLET PO SCH (05:56)
[2019-07-22 07:24] LABS: BUN/Creatinine Ratio 13 (6-26); Blood Urea Nitrogen 14 mg/dL (8-23); Calcium 8.8 mg/dL (8.6-10.3); Carbon Dioxide 33 mEq/L (23-29); Chloride 108 mEq/L (98-107); Glucose 147 mg/dL (70-105); Osmolality,Calculated 303 (280-300); Potassium 3.7 mEq/L (3.5-5.1); Sodium 145 mEq/L (136-145); eGFR For African Americans > 60 (> 60); eGFR For Non-African Americans > 60 (> 60)
[2019-07-22] MEDS: Insulin LISPRO 300 UNITS/3 ML VIAL SQ SCH ×3 (07:45→17:16)
[2019-07-22] MEDS: Pyridoxine (B-6) 50 MG TABLET PO SCH (07:45)
[2019-07-22] MEDS: Aspirin Enteric Coated 81 MG Tablet PO SCH (07:45)
[2019-07-22] MEDS: Cholecalciferol (D-3) 1,000 UNIT (25MCG) TABLET PO SCH (07:45)
[2019-07-22] MEDS: Piperacillin/Tazobactam 3.375 GM in 0.9 % Sodium Chloride Mini Bag 100 ML IVPB SCH ×3 (07:46→23:42)
[2019-07-22] MEDS: Ipratropium Neb 0.5 MG NEBULIZER IH PRN (07:47)
[2019-07-22] MEDS: Budesonide Neb 0.5 MG/2 ML IH SCH ×2 (10:07→21:48)
[2019-07-22] MEDS: levoFLOXacin 750 MG/150 ML 750 MG/150 ML BAG IVPB SCH (11:23)
[2019-07-22] MEDS: *HR* LORazepam 0.5 MG TABLET PO PRN (12:57)
[2019-07-22] MEDS ORDERED: Ampicillin/Sulbactam 3,000 MG in 0.9 % Sodium Chloride Mini Bag 100 ML IVPB SCH (16:00)
[2019-07-22] MEDS ORDERED: Insulin LISPRO 300 UNITS/3 ML VIAL SQ SCH (21:00)
[2019-07-23] MEDS: *HR* LORazepam 0.5 MG TABLET PO PRN (00:17)
[2019-07-23] MEDS: Ipratropium/Albuterol Neb 3 ML IH SCH ×3 (04:23→15:24)
[2019-07-23 04:41] LABS: Basophils % 0.2 %; Eosinophils # 0.5 K/mcL (0.0-0.6); Eosinophils % 3.7 %; Hematocrit 27.6 % (37.5-50.1); Hemoglobin 8.3 g/dL (12.9-16.9); Immature Granulocytes % 0.4 % (0-4); Lymphocytes # 1.2 K/mcL (0.6-4.6); Lymphocytes % 9.2 %; Mean Corpuscular HGB Conc 30.1 g/dL (31.6-35.5); Mean Corpuscular Volume 99.6 fL (83.0-100.0); Mean Platelet Volume 12.8 fL (9.4-12.4); Monocytes # 0.8 K/mcL (0.0-1.3); Neutrophils # 10.5 K/mcL (1.6-8.9); Platelet Count 255 K/mcL (140-400); Red Blood Count 2.77 M/mcL (4.19-5.50); Red Cell Distribution Width 15.2 % (11.5-14.5); Segmented Neutrophils % 80.5 %; White Blood Count 13.1 K/mcL (4.3-11.1)
[2019-07-23 04:59] LABS: BUN/Creatinine Ratio 12 (6-26); Blood Urea Nitrogen 13 mg/dL (8-23); Calcium 8.5 mg/dL (8.6-10.3); Carbon Dioxide 34 mEq/L (23-29); Chloride 108 mEq/L (98-107); Glucose 183 mg/dL (70-105); Osmolality,Calculated 299 (280-300); Potassium 3.5 mEq/L (3.5-5.1); Sodium 142 mEq/L (136-145); eGFR For African Americans > 60 (> 60); eGFR For Non-African Americans > 60 (> 60)
[2019-07-23] MEDS: *HR* Heparin 5,000 UNIT/ML VIAL SQ SCH (05:07)
[2019-07-23] MEDS: Pyridoxine (B-6) 50 MG TABLET PO SCH (07:58)
[2019-07-23] MEDS: Insulin LISPRO 300 UNITS/3 ML VIAL SQ SCH ×3 (07:58→17:13)
[2019-07-23] MEDS: Aspirin Enteric Coated 81 MG Tablet PO SCH (07:58)
[2019-07-23] MEDS: Cholecalciferol (D-3) 1,000 UNIT (25MCG) TABLET PO SCH (07:58)
[2019-07-23] MEDS: Furosemide 40 MG TABLET PO SCH (07:58)
[2019-07-23] MEDS: Piperacillin/Tazobactam 3.375 GM in 0.9 % Sodium Chloride Mini Bag 100 ML IVPB SCH (07:59)
[2019-07-23] MEDS: levoFLOXacin 750 MG/150 ML 750 MG/150 ML BAG IVPB SCH (07:59)
[2019-07-23 08:32] LABS: Hematocrit 28.9 % (37.5-50.1); Hemoglobin 8.7 g/dL (12.9-16.9)
[2019-07-23] MEDS: Budesonide Neb 0.5 MG/2 ML IH SCH (09:50)
[2019-07-23] MEDS ORDERED: Potassium Chloride Elixir 20 MEQ/15 ML UDC PO ONE (09:57)
[2019-07-23] MEDS ORDERED: metroNIDAZOLE 500 MG TABLET PO SCH (15:00)
[2019-07-23] MEDS ORDERED: MetroNIDAZOLE 500 MG/100 ML 500 MG/100 ML BAG IVPB SCH (16:00)
[2019-07-23 16:17] VITALS: BP 128/55
[2019-07-24] MEDS ORDERED: levoFLOXacin 750 MG TABLET PO SCH (09:00)
== END 2019-07-23 17:22 | DRG 871 ==
LOC: 2NNU 21:14 → EMEROOARM 21:14 → 2NNU 07-17 01:20 → SUATTDRO 07-17 05:59 → 2ANU 07-19 13:18
PROVIDERS: ADMIT Internal Medicine; ATTEND Internal Medicine

== ENCOUNTER 2019-08-11 08:23 | Inpatient (IN) ==
[2019-08-11] MEDS ORDERED: methylPREDNISolone 125 MG/2 ML VIAL IVP ONE (08:28)
[2019-08-11] MEDS ORDERED: Ipratropium/Albuterol Neb 3 ML IH ONE (08:28)
[2019-08-11] MEDS ORDERED: Furosemide 40 MG/4 ML VIAL IVP ONE (08:49)
[2019-08-11 08:53] LABS: Basophils % 0.2 %; Eosinophils # 0.1 K/mcL (0.0-0.6); Eosinophils % 1.1 %; Hematocrit 28.8 % (37.5-50.1); Hemoglobin 8.4 g/dL (12.9-16.9); Immature Granulocytes % 0.5 % (0-4); Lymphocytes # 1.1 K/mcL (0.6-4.6); Lymphocytes % 8.2 %; Mean Corpuscular HGB Conc 29.2 g/dL (31.6-35.5); Mean Corpuscular Hemoglobin 29.7 pg (28.0-33.3); Mean Corpuscular Volume 101.8 fL (83.0-100.0); Mean Platelet Volume 13.5 fL (9.4-12.4); Monocytes # 0.8 K/mcL (0.0-1.3); Monocytes % 6.4 %; Neutrophils # 10.9 K/mcL (1.6-8.9); Platelet Count 200 K/mcL (140-400); Red Blood Count 2.83 M/mcL (4.19-5.50); Red Cell Distribution Width 15.3 % (11.5-14.5); Segmented Neutrophils % 83.6 %; White Blood Count 13.1 K/mcL (4.3-11.1)
[2019-08-11 09:00] LABS: ABG Base Excess 11 mEq/L (-2 to 3); ABG HCO3 41 mEq/L (21-27); ABG Oxygen Saturation 97 % (95-98); ABG PCO2 95 mmHg (35-45); ABG PH 7.24 pH Units (7.32-7.45); ABG PO2 111 mmHg (85-104); ABG TCO2 44 mEq/L (20-26)
[2019-08-11 10:16] LABS: BUN/Creatinine Ratio 20 (6-26); Blood Urea Nitrogen 24 mg/dL (8-23); Calcium 8.9 mg/dL (8.6-10.3); Carbon Dioxide 38 mEq/L (23-29); Chloride 100 mEq/L (98-107); Glucose 189 mg/dL (70-105); Osmolality,Calculated 303 (280-300); Potassium 4.8 mEq/L (3.5-5.1); Sodium 142 mEq/L (136-145); eGFR For African Americans > 60 (> 60); eGFR For Non-African Americans 60 (> 60)
[2019-08-11 10:18] LABS: Troponin I 0.03 ng/mL (< 0.04)
[2019-08-11] MEDS ORDERED: Piperacillin/Tazobactam 3.375 GM in Water for inj. (sterile) 20 ML IVP ONE (10:43)
[2019-08-11 10:56] LABS: ABG Base Excess 13 mEq/L (-2 to 3); ABG HCO3 42 mEq/L (21-27); ABG Oxygen Saturation 86 % (95-98); ABG PCO2 81 mmHg (35-45); ABG PH 7.33 pH Units (7.32-7.45); ABG PO2 58 mmHg (85-104); ABG TCO2 45 mEq/L (20-26)
[2019-08-11] MEDS ORDERED: Naloxone 0.4 MG/ML INJ IVP PRN (14:50)
[2019-08-11] MEDS ORDERED: MOM Conc 10 ML UD.LIQ PO PRN (14:50)
[2019-08-11] MEDS ORDERED: Ondansetron ODT 4 MG TAB.RAPDIS SL PRN (14:50)
[2019-08-11] MEDS ORDERED: Albuterol 2.5 MG/3 ML NEBULIZER IH PRN (14:52)
[2019-08-11] MEDS ORDERED: *HR* OxyCODONE ER (12 HR) 10 MG TABLET PO PRN (15:03)
[2019-08-11] MEDS ORDERED: Dextrose Gel 15 GM/37.5 ML TUBE PO PRN ×2 (15:31)
[2019-08-11] MEDS ORDERED: D5% in Water 1,000 ML IVC PRN (15:31)
[2019-08-11] MEDS ORDERED: *HR* Dextrose 50 % in Water (Syg) 50 ML SYRINGE IVP PRN (15:31)
[2019-08-11] MEDS: Ipratropium/Albuterol Neb 3 ML IH SCH ×3 (15:33→23:15)
[2019-08-11] MEDS: Furosemide 40 MG/4 ML VIAL IVP SCH (17:42)
[2019-08-11] MEDS: *HR* Heparin 5,000 UNIT/ML VIAL SQ SCH (17:42)
[2019-08-11] MEDS: Insulin LISPRO 300 UNITS/3 ML VIAL SQ SCH ×2 (17:42→19:52)
[2019-08-11] MEDS: Melatonin 3 MG TABLET PO SCH (19:52)
[2019-08-11] MEDS: Gabapentin 300 MG CAPSULE PO SCH (19:52)
[2019-08-11] MEDS: Budesonide Neb 0.5 MG/2 ML IH SCH (23:15)
[2019-08-12] MEDS: Ipratropium/Albuterol Neb 3 ML IH SCH ×5 (03:53→20:06)
[2019-08-12 04:03] LABS: Hematocrit 27.1 % (37.5-50.1); Mean Corpuscular HGB Conc 29.5 g/dL (31.6-35.5); Mean Corpuscular Hemoglobin 29.4 pg (28.0-33.3); Mean Corpuscular Volume 99.6 fL (83.0-100.0); Mean Platelet Volume 13.8 fL (9.4-12.4); Platelet Count 176 K/mcL (140-400); Red Blood Count 2.72 M/mcL (4.19-5.50); Red Cell Distribution Width 15.4 % (11.5-14.5); White Blood Count 15.5 K/mcL (4.3-11.1)
[2019-08-12 04:20] LABS: BUN/Creatinine Ratio 24 (6-26); Blood Urea Nitrogen 29 mg/dL (8-23); Carbon Dioxide 39 mEq/L (23-29); Chloride 101 mEq/L (98-107); Glucose 145 mg/dL (70-105); Osmolality,Calculated 304 (280-300); Potassium 4.4 mEq/L (3.5-5.1); Sodium 143 mEq/L (136-145); eGFR For African Americans > 60 (> 60); eGFR For Non-African Americans 59 (> 60)
[2019-08-12] MEDS: *HR* OxyCODONE Immed Rel 5 MG TABLET PO PRN (04:25)
[2019-08-12] MEDS: *HR* Heparin 5,000 UNIT/ML VIAL SQ SCH ×2 (06:18→17:09)
[2019-08-12] MEDS: Tiotropium 18 MCG inhalation IH SCH (07:16)
[2019-08-12] MEDS: Budesonide Neb 0.5 MG/2 ML IH SCH ×2 (07:16→20:05)
[2019-08-12] MEDS: Insulin LISPRO 300 UNITS/3 ML VIAL SQ SCH ×4 (08:38→21:34)
[2019-08-12] MEDS ORDERED: (Roflumilast [Daliresp] 500 MCG) PO SCH (09:00)
[2019-08-12] MEDS ORDERED: NON-FORMULARY MEDICATION 1 EACH EACH (Tiotropium Bromide [Spiriva Respimat] 1 PUFF) IH SCH (09:00)
[2019-08-12] MEDS: Cholecalciferol (D-3) 1,000 UNIT (25MCG) TABLET PO SCH (09:48)
[2019-08-12] MEDS: Gabapentin 300 MG CAPSULE PO SCH ×3 (09:48→21:34)
[2019-08-12] MEDS: Aspirin Enteric Coated 81 MG Tablet PO SCH (09:48)
[2019-08-12] MEDS: amLODIPine 5 MG TABLET PO SCH (09:49)
[2019-08-12] MEDS: Pyridoxine (B-6) 50 MG TABLET PO SCH (09:49)
[2019-08-12] MEDS: predniSONE 20 MG TABLET PO SCH (09:49)
[2019-08-12] MEDS: Furosemide 40 MG/4 ML VIAL IVP SCH (09:49)
[2019-08-12] MEDS: Melatonin 3 MG TABLET PO SCH (21:33)
[2019-08-13] MEDS: Ipratropium/Albuterol Neb 3 ML IH SCH ×6 (00:10→20:01)
[2019-08-13 05:16] LABS: Hematocrit 28.2 % (37.5-50.1); Hemoglobin 8.2 g/dL (12.9-16.9); Mean Corpuscular HGB Conc 29.1 g/dL (31.6-35.5); Mean Corpuscular Hemoglobin 28.9 pg (28.0-33.3); Mean Corpuscular Volume 99.3 fL (83.0-100.0); Mean Platelet Volume 13.6 fL (9.4-12.4); Platelet Count 201 K/mcL (140-400); Red Blood Count 2.84 M/mcL (4.19-5.50); Red Cell Distribution Width 15.5 % (11.5-14.5); White Blood Count 12.6 K/mcL (4.3-11.1)
[2019-08-13 05:34] LABS: BUN/Creatinine Ratio 33 (6-26); Blood Urea Nitrogen 38 mg/dL (8-23); Calcium 8.8 mg/dL (8.6-10.3); Carbon Dioxide 39 mEq/L (23-29); Chloride 101 mEq/L (98-107); Glucose 147 mg/dL (70-105); Osmolality,Calculated 314 (280-300); Potassium 4.2 mEq/L (3.5-5.1); Sodium 146 mEq/L (136-145); eGFR For African Americans > 60 (> 60); eGFR For Non-African Americans > 60 (> 60)
[2019-08-13] MEDS: *HR* Heparin 5,000 UNIT/ML VIAL SQ SCH ×2 (06:19→16:21)
[2019-08-13] MEDS: Budesonide Neb 0.5 MG/2 ML IH SCH ×2 (07:29→20:01)
[2019-08-13] MEDS: Tiotropium 18 MCG inhalation IH SCH (07:29)
[2019-08-13 08:08] LABS: ABG Base Excess 14 mEq/L (-2 to 3); ABG HCO3 41 mEq/L (21-27); ABG Oxygen Saturation 93 % (95-98); ABG PCO2 67 mmHg (35-45); ABG PH 7.39 pH Units (7.32-7.45); ABG PO2 72 mmHg (85-104); ABG TCO2 43 mEq/L (20-26)
[2019-08-13] MEDS: Insulin LISPRO 300 UNITS/3 ML VIAL SQ SCH ×4 (08:10→20:32)
[2019-08-13] MEDS: predniSONE 20 MG TABLET PO SCH (09:40)
[2019-08-13] MEDS: Furosemide 20 MG TABLET PO SCH (09:40)
[2019-08-13] MEDS: amLODIPine 5 MG TABLET PO SCH (09:40)
[2019-08-13] MEDS: Cholecalciferol (D-3) 1,000 UNIT (25MCG) TABLET PO SCH (09:40)
[2019-08-13] MEDS: Gabapentin 300 MG CAPSULE PO SCH ×3 (09:40→20:27)
[2019-08-13] MEDS: Aspirin Enteric Coated 81 MG Tablet PO SCH (09:40)
[2019-08-13] MEDS: Pyridoxine (B-6) 50 MG TABLET PO SCH (09:40)
[2019-08-13 09:44] LABS: ABG Base Excess 17 mEq/L (-2 to 3); ABG HCO3 44 mEq/L (21-27); ABG Oxygen Saturation 95 % (95-98); ABG PCO2 67 mmHg (35-45); ABG PH 7.42 pH Units (7.32-7.45); ABG PO2 79 mmHg (85-104); ABG TCO2 46 mEq/L (20-26)
[2019-08-13] MEDS: MethylPREDNISolone 40 MG/ML VIAL IVP SCH ×2 (10:46→16:21)
[2019-08-13] MEDS ORDERED: MethylPREDNISolone 40 MG/ML VIAL IVP SCH (18:00)
[2019-08-13] MEDS: Melatonin 3 MG TABLET PO SCH (20:28)
[2019-08-13] MEDS: *HR* OxyCODONE Immed Rel 5 MG TABLET PO PRN (20:30)
[2019-08-14] MEDS: Ipratropium/Albuterol Neb 3 ML IH SCH ×7 (03:52→23:55)
[2019-08-14] MEDS: *HR* Heparin 5,000 UNIT/ML VIAL SQ SCH ×2 (06:14→17:33)
[2019-08-14] MEDS: MethylPREDNISolone 40 MG/ML VIAL IVP SCH (06:14)
[2019-08-14 06:42] LABS: Hematocrit 29.2 % (37.5-50.1); Hemoglobin 9.1 g/dL (12.9-16.9); Mean Corpuscular HGB Conc 31.2 g/dL (31.6-35.5); Mean Corpuscular Hemoglobin 29.3 pg (28.0-33.3); Mean Corpuscular Volume 93.9 fL (83.0-100.0); Mean Platelet Volume 14.3 fL (9.4-12.4); Platelet Count 202 K/mcL (140-400); Red Blood Count 3.11 M/mcL (4.19-5.50); Red Cell Distribution Width 15.4 % (11.5-14.5); White Blood Count 11.4 K/mcL (4.3-11.1)
[2019-08-14 06:50] LABS: BUN/Creatinine Ratio 35 (6-26); Blood Urea Nitrogen 37 mg/dL (8-23); Carbon Dioxide 37 mEq/L (23-29); Chloride 102 mEq/L (98-107); Glucose 142 mg/dL (70-105); Osmolality,Calculated 313 (280-300); Potassium 5.2 mEq/L (3.5-5.1); Sodium 146 mEq/L (136-145); eGFR For African Americans > 60 (> 60); eGFR For Non-African Americans > 60 (> 60)
[2019-08-14] MEDS: Budesonide Neb 0.5 MG/2 ML IH SCH ×2 (07:34→19:53)
[2019-08-14] MEDS: amLODIPine 5 MG TABLET PO SCH (08:00)
[2019-08-14] MEDS: Furosemide 20 MG TABLET PO SCH (08:00)
[2019-08-14] MEDS: Gabapentin 300 MG CAPSULE PO SCH ×3 (08:00→21:57)
[2019-08-14] MEDS: Pyridoxine (B-6) 50 MG TABLET PO SCH (08:00)
[2019-08-14] MEDS: Insulin LISPRO 300 UNITS/3 ML VIAL SQ SCH ×4 (08:00→21:56)
[2019-08-14] MEDS: Aspirin Enteric Coated 81 MG Tablet PO SCH (08:00)
[2019-08-14] MEDS: Cholecalciferol (D-3) 1,000 UNIT (25MCG) TABLET PO SCH (08:00)
[2019-08-14] MEDS: Azithromycin 250 MG TABLET PO SCH (12:49)
[2019-08-14 14:30] LABS: BUN/Creatinine Ratio 37 (6-26); Blood Urea Nitrogen 41 mg/dL (8-23); Calcium 8.8 mg/dL (8.6-10.3); Carbon Dioxide 41 mEq/L (23-29); Chloride 101 mEq/L (98-107); Glucose 252 mg/dL (70-105); Osmolality,Calculated 319 (280-300); Potassium 4.4 mEq/L (3.5-5.1); Sodium 145 mEq/L (136-145); eGFR For African Americans > 60 (> 60); eGFR For Non-African Americans > 60 (> 60)
[2019-08-14] MEDS ORDERED: Insulin DETEMIR 100 UNIT/ML X5UNITS SQ SCH (21:00)
[2019-08-14] MEDS: Melatonin 3 MG TABLET PO SCH (21:57)
[2019-08-15] MEDS: Ipratropium/Albuterol Neb 3 ML IH SCH ×3 (04:04→11:13)
[2019-08-15] MEDS: *HR* Heparin 5,000 UNIT/ML VIAL SQ SCH (05:50)
[2019-08-15 06:02] LABS: BUN/Creatinine Ratio 39 (6-26); Blood Urea Nitrogen 43 mg/dL (8-23); Calcium 8.6 mg/dL (8.6-10.3); Carbon Dioxide 41 mEq/L (23-29); Chloride 100 mEq/L (98-107); Glucose 174 mg/dL (70-105); Osmolality,Calculated 317 (280-300); Potassium 4.5 mEq/L (3.5-5.1); Sodium 146 mEq/L (136-145); eGFR For African Americans > 60 (> 60); eGFR For Non-African Americans > 60 (> 60)
[2019-08-15] MEDS: Budesonide Neb 0.5 MG/2 ML IH SCH (07:32)
[2019-08-15] MEDS: Gabapentin 300 MG CAPSULE PO SCH (08:38)
[2019-08-15] MEDS: Aspirin Enteric Coated 81 MG Tablet PO SCH (08:38)
[2019-08-15] MEDS: Pyridoxine (B-6) 50 MG TABLET PO SCH (08:39)
[2019-08-15] MEDS: Furosemide 20 MG TABLET PO SCH (08:39)
[2019-08-15] MEDS: Cholecalciferol (D-3) 1,000 UNIT (25MCG) TABLET PO SCH (08:39)
[2019-08-15] MEDS: amLODIPine 5 MG TABLET PO SCH (08:39)
[2019-08-15] MEDS: Insulin LISPRO 300 UNITS/3 ML VIAL SQ SCH ×2 (08:40→12:44)
[2019-08-15] MEDS: Azithromycin 250 MG TABLET PO SCH (08:40)
[2019-08-15] MEDS ORDERED: predniSONE 20 MG TABLET PO SCH (09:00)
[2019-08-15 11:16] VITALS: BP 114/56
== END 2019-08-15 14:01 | DRG 291 ==
LOC: EMEROOARM 08:23 → 2NNU 11:09 → SUATTDRO 11:09 → 2NNU 12:00 → CDU 08-12 11:07 → 2ANU 08-12 17:53
PROVIDERS: ADMIT Family Medicine; ATTEND Internal Medicine

== ENCOUNTER 2019-08-19 10:29 | Inpatient (IN) ==
[2019-08-19] MEDS ORDERED: methylPREDNISolone 125 MG/2 ML VIAL IVP ONE (10:51)
[2019-08-19 11:55] LABS: Basophils % 0.2 %; Eosinophils # 0.1 K/mcL (0.0-0.6); Eosinophils % 0.9 %; Hematocrit 30.9 % (37.5-50.1); Hemoglobin 9.2 g/dL (12.9-16.9); Immature Granulocytes % 1.4 % (0-4); Lymphocytes # 0.5 K/mcL (0.6-4.6); Lymphocytes % 3.3 %; Mean Corpuscular HGB Conc 29.8 g/dL (31.6-35.5); Mean Corpuscular Hemoglobin 29.2 pg (28.0-33.3); Mean Corpuscular Volume 98.1 fL (83.0-100.0); Mean Platelet Volume 13.9 fL (9.4-12.4); Monocytes # 0.3 K/mcL (0.0-1.3); Monocytes % 2.1 %; Neutrophils # 14.7 K/mcL (1.6-8.9); Platelet Count 195 K/mcL (140-400); Red Blood Count 3.15 M/mcL (4.19-5.50); Red Cell Distribution Width 15.6 % (11.5-14.5); Segmented Neutrophils % 92.1 %
[2019-08-19] MEDS ORDERED: Furosemide 40 MG/4 ML VIAL IVP STA (12:03)
[2019-08-19] MEDS ORDERED: Nitroglycerin 1 INCH/GM PACKET TP STA (12:04)
[2019-08-19 12:13] LABS: VBG HCO3 44 mEq/L (21-27); VBG PCO2 96 mmHg (41-51); VBG PH 7.26 pH Units (7.32-7.42); VBG PO2 51 mmHg (25-50)
[2019-08-19] MEDS ORDERED: Ipratropium/Albuterol Neb 3 ML ONE (12:29)
[2019-08-19] MEDS: Ipratropium/Albuterol Neb 3 ML IH STA ×3 (12:33→12:36)
[2019-08-19 12:42] LABS: Blood Urea Nitrogen 29 mg/dL (8-23); Carbon Dioxide 43 mEq/L (23-29); Chloride 101 mEq/L (98-107); Potassium 4.2 mEq/L (3.5-5.1); Sodium 146 mEq/L (136-145)
[2019-08-19 12:43] LABS: BUN/Creatinine Ratio 26 (6-26); Calcium 8.6 mg/dL (8.6-10.3); Glucose 191 mg/dL (70-105); Osmolality,Calculated 313 (280-300); Troponin I 0.03 ng/mL (< 0.04); eGFR For African Americans > 60 (> 60); eGFR For Non-African Americans > 60 (> 60)
[2019-08-19 13:51] LABS: VBG HCO3 39 mEq/L (21-27); VBG PCO2 47 mmHg (41-51); VBG PH 7.53 pH Units (7.32-7.42); VBG PO2 222 mmHg (25-50)
[2019-08-19] MEDS ORDERED: Naloxone 0.4 MG/ML INJ IVP PRN (15:13)
[2019-08-19] MEDS ORDERED: Perflutren Lipid Microsphere 1.3 ML in 0.9 % Sodium Chloride 8.7 ML IVP ONE (17:15)
[2019-08-19] MEDS ORDERED: Perflutren Lipid Microsphere 2 ML VIAL ONE (17:18)
[2019-08-19] MEDS ORDERED: Dextrose Gel 15 GM/37.5 ML TUBE PO PRN ×2 (17:29)
[2019-08-19] MEDS ORDERED: D5% in Water 1,000 ML IVC PRN (17:29)
[2019-08-19] MEDS ORDERED: *HR* Dextrose 50 % in Water (Syg) 50 ML SYRINGE IVP PRN (17:29)
[2019-08-19] MEDS ORDERED: Bumetanide 1 MG TABLET PO SCH (18:00)
[2019-08-19] MEDS ORDERED: *HR* OxyCODONE Immed Rel 5 MG TABLET PO PRN (18:10)
[2019-08-19] MEDS ORDERED: Bisacodyl 10 MG RECTAL SUPPOSITORY RC PRN (18:10)
[2019-08-19] MEDS: Melatonin 3 MG TABLET PO SCH (20:05)
[2019-08-19] MEDS: Gabapentin 300 MG CAPSULE PO SCH (20:05)
[2019-08-19] MEDS: Nystatin SUSP 5 ML UD.LIQ PO SCH (21:26)
[2019-08-19] MEDS: Insulin LISPRO 300 UNITS/3 ML VIAL SQ SCH (21:26)
[2019-08-19] MEDS: Budesonide Neb 0.5 MG/2 ML IH SCH (22:05)
[2019-08-20 04:53] LABS: Basophils % 0.1 %; Hematocrit 28.7 % (37.5-50.1); Hemoglobin 8.5 g/dL (12.9-16.9); Immature Granulocytes % 0.9 % (0-4); Lymphocytes # 0.7 K/mcL (0.6-4.6); Lymphocytes % 4.6 %; Mean Corpuscular HGB Conc 29.6 g/dL (31.6-35.5); Mean Corpuscular Hemoglobin 29.2 pg (28.0-33.3); Mean Corpuscular Volume 98.6 fL (83.0-100.0); Monocytes # 0.7 K/mcL (0.0-1.3); Neutrophils # 12.8 K/mcL (1.6-8.9); Platelet Count 197 K/mcL (140-400); Red Blood Count 2.91 M/mcL (4.19-5.50); Red Cell Distribution Width 15.5 % (11.5-14.5); Segmented Neutrophils % 89.4 %; White Blood Count 14.4 K/mcL (4.3-11.1)
[2019-08-20 05:19] LABS: BUN/Creatinine Ratio 29 (6-26); Blood Urea Nitrogen 28 mg/dL (8-23); Calcium 8.5 mg/dL (8.6-10.3); Carbon Dioxide 44 mEq/L (23-29); Chloride 100 mEq/L (98-107); Glucose 114 mg/dL (70-105); Osmolality,Calculated 306 (280-300); Potassium 4.3 mEq/L (3.5-5.1); Sodium 145 mEq/L (136-145); eGFR For African Americans > 60 (> 60); eGFR For Non-African Americans > 60 (> 60)
[2019-08-20] MEDS: Ipratropium/Albuterol Neb 3 ML IH PRN ×3 (06:59→21:21)
[2019-08-20] MEDS: Insulin LISPRO 300 UNITS/3 ML VIAL SQ SCH ×4 (07:52→20:24)
[2019-08-20] MEDS: Azithromycin 250 MG TABLET PO SCH (08:31)
[2019-08-20] MEDS: Aspirin 81 MG TAB.CHEW PO SCH (08:31)
[2019-08-20] MEDS: Nystatin SUSP 5 ML UD.LIQ PO SCH ×4 (08:31→20:20)
[2019-08-20] MEDS: Cholecalciferol (D-3) 1,000 UNIT (25MCG) TABLET PO SCH (08:32)
[2019-08-20] MEDS: predniSONE 10 MG TABLET PO SCH (08:32)
[2019-08-20] MEDS: amLODIPine 5 MG TABLET PO SCH (08:32)
[2019-08-20] MEDS: Pyridoxine (B-6) 50 MG TABLET PO SCH (08:32)
[2019-08-20] MEDS: Gabapentin 300 MG CAPSULE PO SCH ×3 (08:32→20:18)
[2019-08-20] MEDS: Furosemide 40 MG/4 ML VIAL IVP SCH (08:33)
[2019-08-20] MEDS ORDERED: Acetaminophen 325 MG TABLET PO ONE (08:52)
[2019-08-20] MEDS ORDERED: NON-FORMULARY MEDICATION 1 EACH EACH (Roflumilast [Daliresp] 500 MCG) PO SCH (09:00)
[2019-08-20] MEDS: Budesonide Neb 0.5 MG/2 ML IH SCH ×2 (10:11→21:21)
[2019-08-20] MEDS: Stomatitis Mixture 5 ML UDC PO SCH ×4 (10:40→20:21)
[2019-08-20] MEDS ORDERED: Furosemide 20 MG TABLET PO SCH (18:10)
[2019-08-20] MEDS ORDERED: Furosemide 40 MG TABLET PO SCH (18:10)
[2019-08-20] MEDS: Melatonin 3 MG TABLET PO SCH (20:17)
[2019-08-21 04:19] LABS: Basophils % 0.1 %; Eosinophils # 0.2 K/mcL (0.0-0.6); Eosinophils % 1.2 %; Hematocrit 28.1 % (37.5-50.1); Hemoglobin 8.2 g/dL (12.9-16.9); Immature Granulocytes % 0.7 % (0-4); Lymphocytes # 1.3 K/mcL (0.6-4.6); Lymphocytes % 8.8 %; Mean Corpuscular HGB Conc 29.2 g/dL (31.6-35.5); Mean Corpuscular Hemoglobin 29.1 pg (28.0-33.3); Mean Corpuscular Volume 99.6 fL (83.0-100.0); Mean Platelet Volume 13.9 fL (9.4-12.4); Monocytes # 0.8 K/mcL (0.0-1.3); Neutrophils # 12.9 K/mcL (1.6-8.9); Platelet Count 201 K/mcL (140-400); Red Blood Count 2.82 M/mcL (4.19-5.50); Red Cell Distribution Width 15.7 % (11.5-14.5); Segmented Neutrophils % 84.2 %; White Blood Count 15.3 K/mcL (4.3-11.1)
[2019-08-21 04:48] LABS: BUN/Creatinine Ratio 28 (6-26); Blood Urea Nitrogen 27 mg/dL (8-23); Calcium 8.6 mg/dL (8.6-10.3); Carbon Dioxide 41 mEq/L (23-29); Chloride 101 mEq/L (98-107); Glucose 113 mg/dL (70-105); Osmolality,Calculated 308 (280-300); Potassium 3.8 mEq/L (3.5-5.1); Sodium 146 mEq/L (136-145); eGFR For African Americans > 60 (> 60); eGFR For Non-African Americans > 60 (> 60)
[2019-08-21] MEDS: Ipratropium/Albuterol Neb 3 ML IH PRN (07:23)
[2019-08-21] MEDS: Budesonide Neb 0.5 MG/2 ML IH SCH (07:23)
[2019-08-21] MEDS: predniSONE 10 MG TABLET PO SCH (08:26)
[2019-08-21] MEDS: Cholecalciferol (D-3) 1,000 UNIT (25MCG) TABLET PO SCH (08:26)
[2019-08-21] MEDS: Nystatin SUSP 5 ML UD.LIQ PO SCH (08:26)
[2019-08-21] MEDS: Aspirin 81 MG TAB.CHEW PO SCH (08:27)
[2019-08-21] MEDS: Furosemide 40 MG/4 ML VIAL IVP SCH (08:27)
[2019-08-21] MEDS: Gabapentin 300 MG CAPSULE PO SCH (08:27)
[2019-08-21] MEDS: Azithromycin 250 MG TABLET PO SCH (08:27)
[2019-08-21] MEDS: Pyridoxine (B-6) 50 MG TABLET PO SCH (08:28)
[2019-08-21] MEDS: amLODIPine 5 MG TABLET PO SCH (08:28)
[2019-08-21] MEDS: Insulin LISPRO 300 UNITS/3 ML VIAL SQ SCH (08:28)
[2019-08-21] MEDS: Stomatitis Mixture 5 ML UDC PO SCH (08:48)
[2019-08-21 16:14] VITALS: BP 137/57
== END 2019-08-21 17:47 | DRG 291 ==
LOC: 2NENU 10:29 → EMEROOARM 10:29 → SUATTDRO 15:20 → 2NENU 16:05
PROVIDERS: ADMIT Internal Medicine; ATTEND Family Medicine

== ENCOUNTER 2019-11-05 10:16 | Inpatient (IN) ==
[2019-11-05] MEDS ORDERED: Atropine Sulfate 1% 40 DROP/2 ML BOTTLE SL PRN (10:25)
[2019-11-05] MEDS ORDERED: Bisacodyl 10 MG RECTAL SUPPOSITORY RC PRN (10:25)
[2019-11-05] MEDS ORDERED: Ipratropium/Albuterol Neb 3 ML IH PRN (10:25)
[2019-11-05] MEDS: Haloperidol Lactate 5 MG/ML VIAL IVP SCH ×3 (11:30→17:45)
[2019-11-05] MEDS: *HR* LORazepam Oral Conc 2 MG/ML PO PRN ×2 (11:33→16:01)
[2019-11-05 15:39] VITALS: BP 101/49
== END 2019-11-05 19:48 | disposition expired | DRG 951 ==
LOC: 2ANU 10:54
PROVIDERS: ADMIT Internal Medicine Hospice and Palliative Medicine; ATTEND Internal Medicine Hospice and Palliative Medicine